=== PATIENT | male | born 1955 | race Caucasian/White ===

== ENCOUNTER → 2019-05-07 13:55 | Outpatient (BNVA) | payer MEDICARE, SELFPAY | PROVIDERS: Family Provider Family Medicine; PCP Family Medicine; Visit Provider Nurse Practitioner | DX: M54.40 Lumbago with sciatica, unspecified side (principal); M25.562 Pain in left knee; Z79.891 Long term (current) use of opiate analgesic | CPT/HCPCS: 99213; 99214 ==

== ENCOUNTER → 2019-10-14 13:14 | Outpatient (BNVA) | payer MEDICARE, SELFPAY | PROVIDERS: Family Provider Family Medicine; PCP Family Medicine; Visit Provider Nurse Practitioner | DX: M54.41 Lumbago with sciatica, right side (principal); M17.0 Bilateral primary osteoarthritis of knee; Z79.891 Long term (current) use of opiate analgesic | CPT/HCPCS: 99213; 99214 ==

== ENCOUNTER 2019-10-19 08:22 | Outpatient (CLI) | payer MEDICARE, SELFPAY ==
--- NOTE | 2019-10-19 08:41 | CT_ITS ---
WS: [id number] CT CHEST, ABDOMEN, AND PELVIS TECHNIQUE: Contrast-enhanced CT of the chest, abdomen, and pelvis with coronal and sagittal reformatt ed images. CLINICAL INFORMATION: COLON CANCER COMPARISON: CT 7 12,018 DLP: 2396.[address] scans at [facility] use at least one of these dose optimization techniques: automat ed exposure control; mA and/or kV adjustment per patient size (includes targeted exams where dose is matched to clinical indication); or iterative reconstruction. CT CHEST: Lungs are well aerated. No acute pulmonary infiltrates. No suspicious pulmonary parenchymal opacities . No pleural fluid or focal pneumonia. No significant pericardial fluid. Stable right hilar lymph nod e measuring 9 mm. No mediastinal or hilar lymphadenopathy. Mild aortic calcification. CT ABDOMEN AND PELVIS: Liver is normal in appearance. Normal common bile duct. Normal spleen. Gallbladder is unremarkable. N ormal pancreas. Adrenal glands are normal. Mild bilateral renal cortical atrophy. No hydronephrosis. 15 mm simple right renal cyst. Mild abdominal aortic calcification. Fat-containing umbilical hernia. Postoperative changes in the rectosigmoid junction. Rectosigmoid constipation. No mass or obstruction . No evidence of recurrent or progressive disease in this area. No pelvic or inguinal lymphadenopathy . No free fluid in the pelvis. Calcified enlarged prostate. Prostate measures 4.2 cm No evidence of bony metastatic disease. Right thyroid nodules the largest measuring 2.1 cm appear sta ble. CT/CT chest abd pel w con* IMPRESSION: 1. No evidence for metastatic disease in the chest abdomen or pelvis. 2. Stable postoperative changes rectosigmoid junction without evidence of recu rrent or residual disease in this location. 3. No abdominal or pelvic lymphadenopathy. 4. No free fluid in the abdomen or pelvis. 5. Right thyroid nodules appear stable. This can be followed up with wm tavarez
[2019-10-19 09:06] LABS: Basophils # 0.1 10^3/uL (0.0-0.1); Basophils % 0.9 %; Eosinophils # 0.2 10^3/uL (0.0-0.8); Eosinophils % 3.5 %; Hematocrit 44.5 % (42.0-52.0); Hemoglobin 14.6 g/dL (11.7-16.6); Lymphocytes # 1.4 10^3/uL (0.8-4.8); Lymphocytes % 23.7 %; Mean Corpuscular HGB Conc 32.8 g/dL (30.0-36.0); Mean Corpuscular Hemoglobin 29.6 pg (28.0-34.0); Mean Corpuscular Volume 90.1 fL (80-94); Mean Platelet Volume 9.7 fL (7.4-10.4); Monocytes # 0.4 10^3/uL (0.2-0.9); Monocytes % 7.1 %; Neutrophils % 64.5 %; Nucleated Red Blood Cells % 0 %; Platelet Count 262 10^3/cmm (130-400); Red Blood Count 4.94 10^6/uL (4.1-5.3); Red Cell Distribution Width 12.4 % (12.1-15.1); White Blood Count 5.7 10^3/uL (4.0-10.0)
[2019-10-19 09:54] LABS: Alanine Aminotransferase 23 U/L (0-41); Alkaline Phosphatase 130 IU/L (40-130); Anion Gap 12.9 (5-19); Aspartate Amino Transferase 29 U/L (0-40); Blood Urea Nitrogen 15 mg/dL (8-23); Calcium 9.2 mg/dL (8.5-10.5); Carbon Dioxide 30 mmol/L (22-29); Chloride 99 mmol/L (98-107); Globulin 3.1 g/dL (1.3-4.6); Glomerular Filtration Rate 84.4 mL/min (90-130); Glucose 113 mg/dL (65-115); Osmolality Calculated 283 mOsm/kg (285-295); Potassium 3.9 mmol/L (3.5-5.1); Sodium 138 mmol/L (136-145); Total Bilirubin 0.6 mg/dL (0.15-1.2); Total Protein 7.1 g/dL (6.6-8.7)
[2019-10-19] MEDS: iohexol 300 mg/mL 50 mL Btl IV (10:18)
[2019-10-19] MEDS: iohexol 300 mg/mL 100 mL Btl IV (10:18)
== END 2019-10-19 08:23 | disposition home or self-care (01) ==
LOC: CT 08:25
PROVIDERS: PCP Family Medicine; Visit Provider Internal Medicine Medical Oncology
DX: C18.7 Malignant neoplasm of sigmoid colon (principal); E04.2 Nontoxic multinodular goiter
CPT/HCPCS: 36415; 71260; 74177; 80053; 82378; 85025

== ENCOUNTER 2019-10-21 11:21 | Outpatient (CLI) | payer MEDICARE, SELFPAY ==
--- NOTE | 2019-10-24 15:33 | ONC FU_ITS ---
Dr. Jim Patient Follow-Up Note Patient: Helder Mccloud Unit #: [id number]: [id number] Dicatated By: Jamey Jim M.D.Date of Visit:Oct 21, 2019 Onc Med Follow-up/Prog Note Chief Complaint: Colon cancer. 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 In March 2014 he was admitted to the hospital with atrial fibrillation and congestive heart failure. At that time he reported that he had been having streaks of blood in his stool. Colonoscopy in April showed a nonobstructing, small size, partially circumferential, malignant appearing mass in the distal sigmoid colon. Also noted was a 7 mm adenomatous appearing polyp in the mid sigmoid colon. The polyp was removed endoscopically. Pathology on the polyp showed adenomatous polyp with low-grade dysplasia. Biopsy of the distal sigmoid mass confirmed low-grade infiltrating adenocarcinoma. CT abdomen/pelvis showed a plaque-like sigmoid mass measuring 2.5 x 0.7 cm. There was also evidence of degenerative disease at L5-S1. There was no adenopathy or other evidence of metastatic disease. Echocardiogram showed normal left ventricular systolic function with estimated ejection fraction at 63%. On 05/23/14 he underwent exploratory laparotomy with distal sigmoid colectomy and EEA anastomosis. There were no complications with the surgery. Pathology showed grade 1-2/4 infiltrating adenocarcinoma measuring 3.4 x 2.5 x 0.5 cm. There was tumor focally identified within small lymphovascular spaces. Resection margins were free with the distal margin measuring 1.8 cm and the proximal margin measuring 1.7 cm. There was no involvement in 6 pericolonic lymph nodes. We opted not to attempt adjuvant chemotherapy, as there was no definite indication for it. As such, he has been followed on observation/expectant management. His medical illnesses include hypertension, atrial fibrillation, congestive heart failure, GERD, and degenerative arthritis. He had smoked in the past, but he quit 16 years ago. He does report having moderate alcohol use. There is no family history of colon cancer. INTERIM HISTORY: His surveillance CT scans on 10/04/2016 and on 10/16/2017 showed no evidence for recurrent or metastatic disease in the chest, abdomen, and pelvis. He had surveillance colonoscopy in September 2017. His surveillance CT scans on 10/19/2019 showed no evidence for metastatic disease in the chest, abdomen, or pelvis. Right thyroid nodules appeared stable. He is seen for a scheduled visit. He has been feeling pretty good generally. He says his energy is okay. He has normal activity. ECOG score is 0. His appetite is good. He has no fever or night sweats. He has been having frequent nosebleeds. He recently was seen by Dr. Roberts, and he did have a cauterization procedure. He has mild exertional dyspnea. He has no resting dyspnea, cough, or chest pain. He still has to take Tums for acid reflux. He has no other GI or complaints. He has been getting injections for pain in his left knee, and he also has back pain. He has some numbness/tingling in his big toes. Medications: Aspirin 1 (81 mg) Tablet Oral daily, Hydrochlorothiazide 1 (25 mg) Tablet Oral daily, Lisinopril 1 (20 mg) Tablet Oral daily, Metoprolol Tartrate 1 (100 ) Tablet Oral b.i.d., Omeprazole 1 (40 mg) Capsule Delayed Release Oral daily, Xarelto 1 (20 mg) Tablet Oral daily Allergies: No Known Allergies. Review of Systems: Constitutional - He feels good. His energy is good and he has normal activity. His appetite is good and weight is stable. No fever, night sweats, or hot flashes. ECOG score is 0, ENMT - No sinus congestion/drainage. No mouth sores. No sore throat or difficulty swallowing. He has been having epistaxis frequently. He saw Dr. Roberts yesterday and had his nose cauterized, Hematologic/Lymphatic - No abnormal bruising. No other bleeding, Respiratory - He gets short of breath with activity. No cough. No pleuritic pain or hemoptysis, Cardiovascular - No angina pain. No palpitations, Gastrointestinal - No nausea or vomiting. He is taking omeprazole for heartburn. He is also using Tums because he has a constant urge to burp. No diarrhea or constipation. No blood in the stool or black stools, Genitourinary (M) - No dysuria or hematuria. No urinary frequency. No urgency or incontinence, Musculoskeletal - He has left knee pain, and he is having injections for it. He also has back pain, Integumentary - No skin complications, Neurologic - No headache or dizziness. He has numbness and tingling in his feet, specifically in both great toes. No other focal neurologic symptoms, Psychiatric - No anxiety or depression. No insomnia. Vital Signs: Performed on Oct 21, 2019 11:46 Height - 71.00 in Weight - 242.2 lbs (LOW) BSA - 2.29 sq.m BMI - 33.78 (HIGH) Temperature - 97.5 F (LOW) Pulse - 76 /min Respiration - 24 /min BP - 105/72 mm(hg) O2 Sat - 97 % Pain - 5 Physical Examination: Constitutional - He looks good generally, Eyes - Sclerae nonicteric. Conjunctivae clear, ENMT - No lesions noted in the oral cavity, Hematologic/Lymphatic - No cervical, clavicular, or axillary adenopathy, Respiratory - Lungs are clear with good air movement bilaterally, Cardiovascular - Heart rhythm is slightly irregular. There is no murmur, gallop, or rub noted, Abdomen - Mildly distended but soft. Liver and spleen are not enlarged. There is no abdominal mass or ascites noted and there is no inguinal adenopathy, Extremities - There are venous stasis changes bilaterally. There is mild swelling of the left leg below the knee, Neurologic - No focal neurologic deficits noted. Lab/Imaging: CBC shows hemoglobin 14.6 g, white blood cell count 5700, and platelet count 262,000. Comprehensive metabolic profile shows normal renal function with BUN 15 and creatinine 0.9 mg/dL. The bilirubin and liver enzymes are normal. CEA is stable at 1.0 ng/mL. Impression: 1. The patient has low-grade infiltrating adenocarcinoma of the distal sigmoid colon, stage IIA (T3, N0, M0). He underwent exploratory laparotomy with distal sigmoid colectomy and EEA anastomosis on 05/23/14. We opted not to attempt adjuvant chemotherapy. His other medical illnesses include: 2. Hypertension. 3. Atrial fibrillation with congestive heart failure, now compensated. 4. GERD. 5. Degenerative arthritis/degenerative disease of the spine. He has been ollowed on observation/expectant management. He is now 5 years out from surgery with no evidence of recurrence of the colon cancer. Plan: He remains on observation/expectant management for the colon cancer. I will see him again in 1 year. In the meantime, I will check with Dr. Patton regarding his surveillance colonoscopy schedule. Signed By: Jamey Jim M.D. <<Signature on File>>
== END 2019-10-21 11:22 | disposition home or self-care (01) ==
LOC: ONCMED 11:23
PROVIDERS: PCP Family Medicine; Visit Provider Internal Medicine Medical Oncology
DX: Z08 Encounter for follow-up examination after completed treatment for malignant neoplasm (principal); Z85.038 Personal history of other malignant neoplasm of large intestine; I10 Essential (primary) hypertension; I48.91 Unspecified atrial fibrillation; I50.9 Heart failure, unspecified; K21.9 Gastro-esophageal reflux disease without esophagitis; M19.90 Unspecified osteoarthritis, unspecified site; M47.9 Spondylosis, unspecified; Z90.49 Acquired absence of other specified parts of digestive tract
CPT/HCPCS: G0463

== ENCOUNTER 2020-01-19 08:58 | Emergency (ER) | payer MEDICARE, SELFPAY ==
[2020-01-19 09:08] VITALS: BP 109/72; PULSE 105; RESP 18; TEMP 36.7; O2SAT 96; BMI 34.4
--- NOTE | 2020-01-19 10:06 | XRR_ITS ---
PROCEDURE INFORMATION: Exam: XR Left Knee Exam date and time: 01/19/2020 10:07 AM Age: 64 years old Clinical indication: Injury or trauma; Fall; Blunt trauma; Knee; Left; Injury date: 01/18/20; Injury details: Fell off ladder TECHNIQUE: Imaging protocol: XR Left knee. Views: 1 or 2 views. COMPARISON: CR Knee 3 views, LEFT* [id number] 11/30/2015 2:35 PM FINDINGS: Bones/joints: No fracture. No dislocation. Minimal narrowing of the medial femoral tibial joint compartment space without subchondral sclerosis, subchondral cyst formation, or osteophyte formation. Small joint effusion. Soft tissues: Increased density and stranding in the subcutaneous tissues anterior to the patella and patellar tendon compatible with contusion given the history. XR/XR knee LT 1-2V [id number] IMPRESSION: Soft tissue injury without osseous injury.
--- NOTE | 2020-01-19 10:06 | XRR_ITS ---
PROCEDURE INFORMATION: Exam: XR Right Shoulder Exam date and time: 01/19/2020 10:31 AM Age: 64 years old Clinical indication: Injury or trauma; Fall; Blunt trauma (contusions or hematomas); Shoulder; Right; Injury date: 01/18/20; Patient HX: Fell off ladder TECHNIQUE: Imaging protocol: XR Right shoulder. Views: 2 or more views. COMPARISON: No relevant prior studies available. FINDINGS: Bones/joints: No fracture. No dislocation. The acromiohumeral interval is normal. Soft tissues: No acute soft tissue abnormality. XR/XR shoulder RT min 2V* [id number] IMPRESSION: No acute osseous abnormality.
--- NOTE | 2020-01-19 10:06 | XRR_ITS ---
PROCEDURE INFORMATION: Exam: XR Right Foot Exam date and time: 01/19/2020 10:31 AM Age: 64 years old Clinical indication: Injury or trauma; Fall; Blunt trauma; Foot; Right; Injury date: 01/18/20; Patient HX: Fell off ladder TECHNIQUE: Imaging protocol: XR Right foot. Views: 1 or 2 views. COMPARISON: No relevant prior studies available. FINDINGS: Bones/joints: No fracture. No dislocation. There is a calcaneal plantar spur. Soft tissues: There is superficial soft tissue swelling in the midfoot and forefoot. XR/XR foot RT 2V [id number] IMPRESSION: Soft tissue injury without osseous injury.
[2020-01-19 12:21] VITALS: BP 109/79; PULSE 95; RESP 18; O2SAT 100
--- NOTE | 2020-01-19 12:31 | XRR_ITS ---
PROCEDURE INFORMATION: Exam: XR Right Ankle Exam date and time: 01/19/2020 12:32 PM Age: 64 years old Clinical indication: Pain; Ankle; Right; Additional info: RT ankle pain TECHNIQUE: Imaging protocol: XR Right ankle. Views: 3 or more views. COMPARISON: CR XR foot RT 2V [id number] 01/19/2020 10:14 AM FINDINGS: Bones/joints: No fracture. No dislocation. The ankle mortise is intact. Soft tissues: There is superficial soft tissue swelling. XR/XR ankle RT min 3V* [id number] IMPRESSION: Soft tissue injury without osseous injury.
--- NOTE | 2020-01-19 18:24 | ED_ITS ---
HPI - Fall General: Chief Complaint: Fall Stated Complaint: fall on 01/17 Time Seen by Provider: 01/19/20 12:04 History of Present Illness: HPI Narrative: 64 year old male presents to the ED after he sustained a fall off a ladder yesterday - reports pain to the right ankle and foot, right shoulder and left knee. He reports able to ambulate with crutches. complaint: fall Onset (ago): hour(s) (24) Fall from: from height (distance) (7 feet) Fall witnessed: yes, by family Place fall occurred: home Loss of consciousness: None Location of injury - extremities: Left: knee and Right: shoulder, ankle and foot Severity: moderate Severity scale (1-10): 4 Quality: sharp and aching Associated symptoms-after fall: Reports difficulty walking (due to RLE pain); Denies abdominal pain, chest pain or neck pain Review of Systems General: Reports: 10 or more systems reviewed and unremarkable except in HPI and below Const: Denies: fever(s), chills or diaphoresis Eyes: Denies: blurry vision or eye redness ENMT: Denies: throat pain, dental pain or disequilibrium Card: Denies: chest pain, palpitations or irregular heart rhythm Resp: Denies: dyspnea, productive cough, non-productive cough or wheezing GI: Denies: abdominal pain, nausea or vomiting : Denies: dysuria Musc: Reports: joint pain (rt ankle, foot and left knee, rt shoulder) and joint swelling (right ankle and foot); Denies: neck pain or back pain Skin/Breast: Denies: rash or pruritus Neuro: Reports: difficulty walking (due to RLE pain) Psych: Denies: anxiety or depression Jason/Lymph: Denies: easy bruising [facility] ED PFSH: Medical History (Updated 01/19/20 @ 12:53 by LAURA Finnegan) Anticoagulation adequate with anticoagulant therapy Xarelto Atrial fibrillation Congestive heart failure Essential hypertension Facet syndrome, lumbar Long-term use of high-risk medication Low back pain with radiation Nonischemic cardiomyopathy Osteoarthritis of both knees Spinal stenosis, lumbar Surgical History History of bowel resection LARGE BOWEL Hx of neck surgery S/P hernia repair S/P routine circumcision S/P tonsillectomy Family History Mother Stroke Father CAD (coronary artery disease) Myocardial infarct Denies family history of Anesthesia complication Bleeding disorder Social History Smoking and tobacco status: former smoker Alcohol intake: current Alcohol intake frequency: 0-2 Drinks per Day Alcohol type: other History of recent travel: No Physical Exam Const: COMMON NORMALS: no acute distress, patient oriented x3, healthy appearing and alert GENERAL APPEARANCE: cooperative, comfortable and well hydrated HENMT: COMMON NORMALS: normocephalic, Normal external nose present and moist oral mucous membranes HEAD & SCALP: normocephalic NOSE: Normal external nose present Eye: COMMON NORMALS: Equal, round and reactive pupils present and EOMs intact bilaterally GENERAL EYE: appearance normal, both eyes and all related structures PUPIL: Yes Equal, round and reactive pupils present Neck/C-Spine: COMMON NORMALS: full ROM and no lymphadenopathy GENERAL: Yes normal visual inspection and Yes trachea midline CERVICAL SPINE: Yes cervical ROM normal, No Cervical spine tenderness, No Paracervical muscle tenderness and No Trapezius muscle tenderness Lymph: LYMPHATIC: no lymphadenopathy noted Chest: COMMONS NORMALS: normal inspection of the chest Resp: COMMON NORMALS: normal respiratory effort and clear to auscultation bilaterally AUSCULTATION: clear to auscultation bilaterally Cardio: COMMON NORMALS: regular rhythm, S1 normal heart sound present and S2 normal heart sound present RHYTHM: regular rhythm HEART SOUNDS: S1 normal heart sound present and S2 normal heart sound present GI: COMMON NORMALS: Soft to palpation and non-tender INSPECTION: Yes normal to inspection PALPATION: Yes Soft to palpation : COMMON NORMALS: Yes no CVA tenderness BLADDER/KIDNEY EXAM: Yes no CVA tenderness Back/Pelvis: COMMON NORMALS: no CVA tenderness, thoracic and lumbar spine normal to inspection, no thoracic nor lumbar tenderness, thoraco-lumbar ROM normal and straight leg raise negative bilaterally Extremity: COMMON NORMALS: normal to inspection and capillary refill normal GENERAL: Yes normal exam except as noted RIGHT UPPER EXTREMITY: Yes shoulder joint (full ROM noted with pain ) Right shoulder: Yes Right shoulder joint inspection exam (normal), Yes Right shoulder joint neurovascular exam (distally intact) and Yes Right shoulder joint other findings (soft tissue pain noted, no pain to the clavicle or humerus) RIGHT LOWER EXTREMITY: Yes foot & digits Right ankle: Yes inspection (edema/swelling), Yes palpation (pain around the joint), Yes ROM (limited due to pain) and Yes neurovascular exam (distally intact) and Yes foot & digits (swelling) Right foot and digits: Yes inspection, Yes palpation (pain proximal), Yes ROM (pain with dorsiflexion and extension) and Yes neurovascular exam (intact) Neuro: COMMON NORMALS: patient oriented x3 and no focal motor deficits SENSORIUM/ORIENTATION: Yes alert Psych: COMMON NORMALS: mental status grossly normal, Normal thought process present and cooperative ACTIVITY/MOTOR BEHAVIOR: Yes appropriate eye contact THOUGHT PROCESS: Normal thought process present Skin: COMMON NORMALS: no rashes or lesions noted and turgor normal GENERAL SKIN EXAM: no rashes or lesions noted and turgor normal Course Vital Signs: Vital signs: Vital Signs Temperature 98.1 F 01/19/20 09:08 Pulse Rate 95 01/19/20 12:21 Respiratory Rate 18 01/19/20 12:21 Blood Pressure 109/79 01/19/20 12:21 Pulse Oximetry 100 01/19/20 12:21 MDM - Fall Imaging Data^: Xray Ortho: Radiologist's impression: [place] [address] XRay Report Signed Patient: Helder Mccloud #: [id number] : 4Acct#:[id number] Age/Sex: 64 / MADM Date: 01/19/20 Loc: ERRoom/Bed: Attending Dr: Ordering Provider/Ordering MD: Max Souza DO Date of Service: 01/19/20 Procedure(s): XR foot RT 2V 59885 Accession Number(s): [id number] Report Number: [id number] PROCEDURE INFORMATION: Exam: XR Right Foot Exam date and time: 01/19/2020 10:31 AM Age: 64 years old Clinical indication: Injury or trauma; Fall; Blunt trauma; Foot; Right; Injury date: 01/18/20; Patient HX: Fell off ladder TECHNIQUE: Imaging protocol: XR Right foot. Views: 1 or 2 views. COMPARISON: No relevant prior studies available. FINDINGS: Bones/joints: No fracture. No dislocation. There is a calcaneal plantar spur. Soft tissues: There is superficial soft tissue swelling in the midfoot and forefoot. XR/XR foot RT 2V [id number] IMPRESSION: Soft tissue injury without osseous injury. Dictated By:Yasmany Neumann Signed By:Herbert Neumann Date/Time:01/19/20 1052 DD/ 1050 Other Xray: Radiologist's impression: [address] [place] [address] XRay Report Signed Patient: Helder Mccloud #: [id number] : 1955cct#:[id number] Age/Sex: 64 / MADM Date: 01/19/20 Loc: ERRoom/Bed: Attending Dr: Ordering Provider/Ordering MD: Max Souza DO Date of Service: 01/19/20 Procedure(s): XR shoulder RT min 2V* [id number] Accession Number(s): [id number] Report Number: [id number] PROCEDURE INFORMATION: Exam: XR Right Shoulder Exam date and time: 01/19/2020 10:31 AM Age: 64 years old Clinical indication: Injury or trauma; Fall; Blunt trauma (contusions or hematomas); Shoulder; Right; Injury date: 01/18/20; Patient HX: Fell off ladder TECHNIQUE: Imaging protocol: XR Right shoulder. Views: 2 or more views. COMPARISON: No relevant prior studies available. FINDINGS: Bones/joints: No fracture. No dislocation. The acromiohumeral interval is normal. Soft tissues: No acute soft tissue abnormality. XR/XR shoulder RT min 2V* [id number] IMPRESSION: No acute osseous abnormality. Dictated By:Yasmany Neumann Signed By:Herbert Neumann Date/Time:01/19/20 1051 DD/ 1049 Other Imaging: Radiologist's impression: [place] [id number] XRay Report Signed Patient: Helder Mccloud #: [id number] : 1955cct#:[id number] Age/Sex: 64 / MADM Date: 01/19/20 Loc: ERRoom/Bed: Attending Dr: Ordering Provider/Ordering MD: Max Souza DO Date of Service: 01/19/20 Procedure(s): XR foot RT 2V 22290 Accession Number(s): [id number] Report Number: [id number] PROCEDURE INFORMATION: Exam: XR Right Foot Exam date and time: 01/19/2020 10:31 AM Age: 64 years old Clinical indication: Injury or trauma; Fall; Blunt trauma; Foot; Right; Injury date: 01/18/20; Patient HX: Fell off ladder TECHNIQUE: Imaging protocol: XR Right foot. Views: 1 or 2 views. COMPARISON: No relevant prior studies available. FINDINGS: Bones/joints: No fracture. No dislocation. There is a calcaneal plantar spur. Soft tissues: There is superficial soft tissue swelling in the midfoot and forefoot. XR/XR foot RT 2V [id number] IMPRESSION: Soft tissue injury without osseous injury. Dictated By:Yasmany Neumann Signed By:Herbert Neumann Date/Time:01/19/20 105 DD/ 1050 Discharge Plan Discharge Patient Disposition: Home Clinical Impression: Fall Qualifiers: Encounter type: initial encounter Qualified Code(s): W19.XXXA - Unspecified fall, initial encounter Ankle sprain Qualifiers: Encounter type: initial encounter Involved ligament of ankle: unspecified ligament Laterality: right Qualified Code(s): S93.401A - Sprain of unspecified ligament of right ankle, initial encounter Contusion Qualifiers: Encounter type: initial encounter Contusion area: shoulder Laterality: right Qualified Code(s): S40.011A - Contusion of right shoulder, initial encounter Condition: Stable Prescriptions: No Action aspirin 81 mg tablet,chewable 81 mg PO ONCE RF: 0 omeprazole 40 mg capsule,delayed release(DR/EC) 40 mg PO DAILY RF: 0 lisinopril 2.5 mg tablet 2.5 mg PO .Q DAY RF: 0 gabapentin 300 mg capsule 300 mg PO TID 30 Days Qty: 90 RF: 3 tramadol 50 mg tablet 50 mg PO QID PRN (Reason: pain) 30 Days Qty: 120 RF: 2 Xarelto 20 mg tablet 20 mg PO DAILY Qty: 90 RF: 3 metoprolol tartrate 50 mg tablet 50 mg PO BID Qty: 180 RF: 3 hydrochlorothiazide 25 mg tablet 25 mg PO DAILY Qty: 90 RF: 3 Discharge Orders: Discharge Order (Routine); Ordered 01/19/20 Ordered By: Angelina Reese Referrals: Dasia Taylor MD [Primary Care Provider] - Discharge Diet: Usual diet Discharge Activity: Limit activity as instructed Patient Instructions: Ankle Sprain (ED), Contusion in Adults (ED), Ankle Stirrup Splint (ED), Fall Prevention (ED) Activity Restrictions/Additional Instructions: Cool compresses to the right ankle and foot, keep the right foot elevated to help with swelling Cool compresses to the right shoulder, this will help with pain Take it easy over the next couple of days, avoid climbing ladders or vigorous activity for the next couple of days Return to the emergency department if you develop neck pain, confusion, increased pain of the right arm or right foot Follow-up with your primary care provider in 5 to 7 days if not improving Continue tramadol as needed for pain May alternate Tylenol with tramadol if needed, may utilize crutches as needed for ankle pain Discharge Date/Time: 01/19/20 13:09 Coding Level of Care Code ED Lead Former for Chandra Fwd Exam Comprehensive
== END 2020-01-19 13:09 | disposition home or self-care (01) ==
PROVIDERS: Emergency Provider Nurse Practitioner Family; PCP Family Medicine
DX: S93.401A Sprain of unspecified ligament of right ankle, initial encounter (principal); S40.011A Contusion of right shoulder, initial encounter; Z79.82 Long term (current) use of aspirin; I48.91 Unspecified atrial fibrillation; I11.0 Hypertensive heart disease with heart failure; I50.9 Heart failure, unspecified; Z87.891 Personal history of nicotine dependence; W11.XXXA Fall on and from ladder, initial encounter
CPT/HCPCS: 12345; 29515; 73030; 73560; 73610; 73620; 99281; 99283

== ENCOUNTER 2020-11-20 15:22 | Outpatient (CLI) | payer MEDICARE, SELFPAY ==
[2020-11-20 16:31] LABS: Basophils # 0.1 10^3/uL (0.0-0.1); Basophils % 1.1 %; Eosinophils # 0.1 10^3/uL (0.0-0.8); Eosinophils % 2.5 %; Hematocrit 43.2 % (42.0-52.0); Hemoglobin 14.6 g/dL (11.7-16.6); Lymphocytes # 1.2 10^3/uL (0.8-4.8); Mean Corpuscular HGB Conc 33.8 g/dL (30.0-36.0); Mean Corpuscular Hemoglobin 29.8 pg (28.0-34.0); Mean Corpuscular Volume 88.2 fl (80-94); Mean Platelet Volume 9.6 fL (7.4-10.4); Monocytes # 0.4 10^3/uL (0.2-0.9); Monocytes % 7.5 %; Neutrophils # 3.87 10^3/uL (1.8-7.7); Neutrophils % 67.7 %; Nucleated Red Blood Cells % 0 %; Platelet Count 280 10^3/cmm (130-400); Red Cell Distribution Width 12.1 % (12.1-15.1); White Blood Count 5.7 10^3/uL (4.0-10.0)
[2020-11-20 16:52] LABS: Alanine Aminotransferase 13 U/L (0-41); Albumin Level 3.8 g/dL (3.5-5.2); Alkaline Phosphatase 131 IU/L (40-130); Anion Gap 12.5 (5-19); Aspartate Amino Transferase 21 U/L (0-40); Blood Urea Nitrogen 13 mg/dL (8-23); Calcium 8.7 mg/dL (8.5-10.5); Carbon Dioxide 28 mmol/L (22-29); Chloride 101 mmol/L (98-107); Globulin 2.9 g/dL (1.3-4.6); Glomerular Filtration Rate 112.5 mL/min (90-130); Glucose 97 mg/dL (65-115); Osmolality Calculated 286 mOsm/kg (285-295); Potassium 3.5 mmol/L (3.5-5.1); Sodium 138 mmol/L (136-145); Total Bilirubin 0.8 mg/dL (0.15-1.2); Total Protein 6.7 g/dL (6.6-8.7)
[2020-11-20 18:59] LABS: Thyroid Stimulating Hormone 0.01 uIU/mL (0.27-4.20); Vitamin B12 227 pg/mL (232-1245)
[2020-11-20 19:28] LABS: Estmated Average Glucose 85; Hemoglobin A1C 4.6 % (4.0-6.0)
[2020-11-20 19:35] LABS: Carcinoembryonic Antigen 1.1 ng/mL (0.0-4.7)
--- NOTE | 2020-11-21 07:33 | ONC FU_ITS ---
Dr. Jim Patient Follow-Up Note Patient: Helder Mccloud Unit #: [id number]: [id number] Dicatated By: Jamey Jim M.D.Date of Visit:Nov 20, 2020 Onc Med Follow-up/Prog Note Chief Complaint: Colon cancer. 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 In March 2014 he was admitted to the hospital with atrial fibrillation and congestive heart failure. At that time he reported that he had been having streaks of blood in his stool. Colonoscopy in April showed a nonobstructing, small size, partially circumferential, malignant appearing mass in the distal sigmoid colon. Also noted was a 7 mm adenomatous appearing polyp in the mid sigmoid colon. The polyp was removed endoscopically. Pathology on the polyp showed adenomatous polyp with low-grade dysplasia. Biopsy of the distal sigmoid mass confirmed low-grade infiltrating adenocarcinoma. CT abdomen/pelvis showed a plaque-like sigmoid mass measuring 2.5 x 0.7 cm. There was also evidence of degenerative disease at L5-S1. There was no adenopathy or other evidence of metastatic disease. Echocardiogram showed normal left ventricular systolic function with estimated ejection fraction at 63%. On 05/23/14 he underwent exploratory laparotomy with distal sigmoid colectomy and EEA anastomosis. There were no complications with the surgery. Pathology showed grade 1-2/4 infiltrating adenocarcinoma measuring 3.4 x 2.5 x 0.5 cm. There was tumor focally identified within small lymphovascular spaces. Resection margins were free with the distal margin measuring 1.8 cm and the proximal margin measuring 1.7 cm. There was no involvement in 6 pericolonic lymph nodes. We opted not to attempt adjuvant chemotherapy, as there was no definite indication for it. As such, he has been followed on observation/expectant management. His medical illnesses include hypertension, atrial fibrillation, congestive heart failure, GERD, and degenerative arthritis. He had smoked in the past, but he quit 16 years ago. He does report having moderate alcohol use. There is no family history of colon cancer. INTERIM HISTORY: His surveillance CT scans on 10/04/2016 and on 10/16/2017 showed no evidence for recurrent or metastatic disease in the chest, abdomen, and pelvis. He had surveillance colonoscopy in September 2017. His surveillance CT scans on 10/19/2019 showed no evidence for metastatic disease in the chest, abdomen, or pelvis. Right thyroid nodules appeared stable. He is seen for a followup visit. He says his energy is not real good. He is able to do light work, though. ECOG score is 1. He has good appetite. He has no fever or night sweats. Following his visit last year he had his nose cauterized and he says he has been unable to smell or taste since then. He has not had sore mouth or throat. He does not complain of shortness of breath, cough, or chest pain. He has no GI complaints. His acid reflux symptoms are adequately managed with medication. He does complain of urinary frequency and nocturia, and he also reports having dribbling. He has no significant joint or bone pain. He has just occasional headache. He has a little bit of dizziness. He complains of having pain and numbness in his 2 big toes. Medications: Aspirin 1 (81 mg) Tablet Oral daily, Hydrochlorothiazide 1 (25 mg) Tablet Oral daily, Lisinopril 1 (20 mg) Tablet Oral daily, Metoprolol Tartrate 1 (100 ) Tablet Oral b.i.d., Omeprazole 1 (40 mg) Capsule Delayed Release Oral daily, Xarelto 1 (20 mg) Tablet Oral daily Allergies: No Known Allergies. Vital Signs: Performed on Nov 20, 2020 15:36 Height - 71.00 in Weight - 236.8 lbs (LOW) BSA - 2.27 sq.m BMI - 33.03 (HIGH) Temperature - 97.8 F (LOW) Pulse - 81 /min Respiration - 18 /min BP - 112/76 mm(hg) O2 Sat - 99 % Pain - 0 Fatigue - 0 Physical Examination: Constitutional - He looks pretty good generally, Eyes - Sclerae nonicteric. Conjunctivae clear, ENMT - No lesions noted in the oral cavity, Hematologic/Lymphatic - No cervical, clavicular, or axillary adenopathy, Respiratory - Lungs are clear with good air movement bilaterally, Cardiovascular - Heart rhythm is irregular. There is no murmur, gallop, or rub noted, Abdomen - Mildly distended but soft. Liver and spleen are not enlarged. There is no abdominal mass or ascites noted and there is no inguinal adenopathy, Extremities - There are venous stasis changes bilaterally. There is mild edema, worse on the left. The distal feet and toes are cool to touch, but he has palpable dorsalis pedis pulses bilaterally, Neurologic - No focal neurologic deficits noted. Lab/Imaging: Test performed on Nov 20, 2020 15:45 Sodium 138 mmol/L Potassium 3.5 mmol/L Chloride 101 mmol/L CO2 28 mmol/L Anion Gap 12.5 BUN 13 mg/dL Creatinine 0.7 mg/dL Cr Clearance (Est) 155.5800 mL/min eGFR 112.5 mL/min Glucose 97 mg/dL Osmolality - Calculated 286 mOsm/kg Calcium 8.7 mg/dL Protein, Total 6.7 g/dL Albumin 3.8 g/dL Globulin 2.9 g/dL Bilirubin, Total 0.8 mg/dL ALT (SGPT) 13 U/L AST (SGOT) 21 U/L Alkaline Phosphatase 131 IU/L WBC 5.7 10 3/uL RBC 4.90 10 6/uL HGB 14.6 g/dL HCT 43.2 % MCV 88.2 fl MCH 29.8 pg MCHC 33.8 g/dL RDW 12.1 % Platelet Count 280 10 3/cmm MPV 9.6 fL Neutrophils 3.87 10 3/uL Lymphocytes 1.2 10 3/uL Monocytes 0.4 10 3/uL Eosinophils 0.1 10 3/uL Basophils 0.1 10 3/uL Neutrophil % 67.7 % Lymphocyte % 21.0 % Monocyte % 7.5 % Eosinophil % 2.5 % Basophils % 1.1 % NRBC % 0 % Problem List: 1. Low-grade infiltrating adenocarcinoma of the distal sigmoid colon, stage IIA (T3, N0, M0). He underwent exploratory laparotomy with distal sigmoid colectomy and EEA anastomosis on 05/23/14. We opted not to attempt adjuvant chemotherapy. 2. Hypertension. 3. Atrial fibrillation with congestive heart failure, compensated. 4. GERD. 5. Degenerative arthritis/degenerative disease of the spine. Problems Addressed with this Encounter and Plan: 1. Patient with low-grade infiltrating adenocarcinoma of the distal sigmoid colon, stage IIA (T3, N0, M0). He underwent exploratory laparotomy with distal sigmoid colectomy and EEA anastomosis on 05/23/2014. We opted not to attempt adjuvant chemotherapy. During follow-up he has been stable clinically. He is now over 5 years out from surgery with no evidence of recurrence. He can continue regular follow-up with his primary care provider. I will see him again as needed. 2. He has had chronic pain. He had previously been given gabapentin through pain clinic. He is no longer being seen there. His gabapentin prescription will be refilled, to be taken just at bedtime. 3. He is having significant voiding symptoms. He will be given a prescription for tamsulosin 0.4 mg at bedtime. 4. He is having pain and numbness in both great toes. At his request, I am arranging for referral to a microfilm mounter. In the meantime, I also will add TSH and B12 levels to his current lab studies. He will have further evaluation as indicated. Signed By: Jamey Jim M.D. <<Signature on File>>
== END 2020-11-20 15:23 | disposition home or self-care (01) ==
LOC: ONCMED 15:26
PROVIDERS: PCP Family Medicine; Visit Provider Internal Medicine Medical Oncology
DX: Z08 Encounter for follow-up examination after completed treatment for malignant neoplasm (principal); Z85.038 Personal history of other malignant neoplasm of large intestine; I10 Essential (primary) hypertension; I48.20 Chronic atrial fibrillation, unspecified; I50.9 Heart failure, unspecified; K21.9 Gastro-esophageal reflux disease without esophagitis; M47.9 Spondylosis, unspecified; Z79.899 Other long term (current) drug therapy; Z92.21 Personal history of antineoplastic chemotherapy
CPT/HCPCS: 36415; 80053; 82378; 82607; 83036; 84443; 85025; 99214

== ENCOUNTER 2020-11-23 06:07 | Outpatient (CLI) | payer MEDICARE, SELFPAY ==
[2020-11-23 15:26] LABS: Homocysteine 13.46; Thyroid Stimulating Hormone 0.01 uIU/mL (0.27-4.20); Vitamin B12 239 pg/mL (232-1245)
[2020-11-23 16:04] LABS: Free T4 Free Thyroxine 1.32 ng/dL (0.82-1.77); T3 Free 4.9 PG/ML (2.0-4.4)
== END 2020-11-23 06:08 | disposition home or self-care (01) ==
LOC: ONCMED 06:11
PROVIDERS: PCP Family Medicine; Visit Provider Internal Medicine Medical Oncology
DX: C18.7 Malignant neoplasm of sigmoid colon (principal); I48.20 Chronic atrial fibrillation, unspecified; Z79.899 Other long term (current) drug therapy
CPT/HCPCS: 36415; 82607; 83090; 84439; 84443; 84481

== ENCOUNTER 2020-11-29 09:30 | Outpatient (CLI) | payer MEDICARE, SELFPAY ==
[2020-12-03 08:22] LABS: Methylmalonic Acid 840 nmol/L (87-318)
== END 2020-11-29 09:31 | disposition home or self-care (01) ==
LOC: ONCMED 09:32
PROVIDERS: PCP Family Medicine; Visit Provider Internal Medicine Medical Oncology
DX: C18.7 Malignant neoplasm of sigmoid colon (principal); M79.672 Pain in left foot; M79.671 Pain in right foot; M77.32 Calcaneal spur, left foot; M77.31 Calcaneal spur, right foot; M21.42 Flat foot [pes planus] (acquired), left foot; M21.41 Flat foot [pes planus] (acquired), right foot; Z79.899 Other long term (current) drug therapy
CPT/HCPCS: 36415; 73630; 83921

== ENCOUNTER → 2021-01-22 13:31 | Outpatient (BNVA) | payer MEDICARE, SELFPAY | PROVIDERS: PCP Family Medicine; Referring Provider Internal Medicine Medical Oncology; Visit Provider Internal Medicine | DX: E05.90 Thyrotoxicosis, unspecified without thyrotoxic crisis or storm (principal) | CPT/HCPCS: 36415; 83516; 84439; 84443; 84480; 99204 ==

== ENCOUNTER 2021-01-22 14:23 | Outpatient (CLI) | payer MEDICARE, SELFPAY ==
[2021-01-22 15:18] LABS: Free T4 Free Thyroxine 1.26 ng/dL (0.82-1.77); Thyroid Stimulating Hormone 0.01 uIU/mL (0.27-4.20)
[2021-01-23 05:57] LABS: T3 Total 178 ng/dL (76-181)
[2021-01-30 17:53] LABS: TSH Receptor Binding Antibody 1.58 IU/L (< OR = 2.00)
== END 2021-01-22 14:24 | disposition home or self-care (01) ==
PROVIDERS: PCP Family Medicine; Visit Provider Internal Medicine
DX: E05.90 Thyrotoxicosis, unspecified without thyrotoxic crisis or storm (principal)
CPT/HCPCS: 36415; 83516; 84439; 84443; 84480

== ENCOUNTER 2021-03-12 09:45 | Outpatient (CLI) | payer MEDICARE, SELFPAY ==
--- NOTE | 2021-03-12 09:52 | NM_ITS ---
WS: [id number] NUCLEAR MEDICINE THYROID UPTAKE AND SCAN HISTORY: thyrotoxicosis COMPARISON: None available. Radionucleotide: 105.4 uCi Iodine-123 sodium iodide capsule. Oral ingestion. Imaging performed at 24 hours post ingestion of capsule. Marker placed over the chin and suprasternal notch. Small atrophic LEFT thyroid gland with no increased uptake. There is mildly diminished uptake. RIGHT thyroid gland does appear to be enlarged. More focal increased uptake within the lower pole may repre sent a focal thyrotoxic nodule. Thyroid uptake at 24 hours: 27.69%. (Normal uptake at 24 hours 10-30%). NM/NM thyroid uptake multi [id number] IMPRESSION: 1. Normal thyroid uptake at 24 hours. 2. Suspect mild atrophy or decreased uptake within the LEFT thyroid. 3. Increased uptake within the inferior pole of the RIGHT thyroid may indicate a hot nodule. If clinically necessary ultrasound may provide additional inform ation. A nodule was previously described as seen on CT of 10/19/2019 and the low er pole of the RIGHT thyroid.
== END 2021-03-12 09:46 | disposition home or self-care (01) ==
LOC: RAD 09:48
PROVIDERS: PCP Family Medicine; Visit Provider Internal Medicine
DX: E05.90 Thyrotoxicosis, unspecified without thyrotoxic crisis or storm (principal)
CPT/HCPCS: 78014; A9516

== ENCOUNTER 2021-03-22 09:17 | Outpatient (CLI) | payer MEDICARE, SELFPAY ==
[2021-03-22 10:29] LABS: Free T4 Free Thyroxine 0.83 ng/dL (0.82-1.77); Thyroid Stimulating Hormone 0.05 uIU/mL (0.27-4.20)
[2021-03-23 06:59] LABS: T3 Total 117 ng/dL (76-181)
== END 2021-03-22 09:18 | disposition home or self-care (01) ==
LOC: LAB 09:21
PROVIDERS: PCP Family Medicine; Visit Provider Internal Medicine
DX: E05.90 Thyrotoxicosis, unspecified without thyrotoxic crisis or storm (principal)
CPT/HCPCS: 36415; 84439; 84443; 84480

== ENCOUNTER → 2021-03-29 13:53 | Outpatient (BNVA) | payer MEDICARE, SELFPAY | PROVIDERS: PCP Family Medicine; Visit Provider Internal Medicine | DX: E05.90 Thyrotoxicosis, unspecified without thyrotoxic crisis or storm (principal) | CPT/HCPCS: 99214 ==

== ENCOUNTER → 2021-05-02 07:49 | Outpatient (BNVA) | payer MEDICARE, SELFPAY | PROVIDERS: PCP Family Medicine; Referring Provider Podiatrist Foot & Ankle Surgery; Visit Provider Specialist | DX: Z53.9 Procedure and treatment not carried out, unspecified reason (principal) | CPT/HCPCS: 99202 ==

== ENCOUNTER 2021-05-02 10:14 | Outpatient (CLI) | payer MEDICARE, SELFPAY ==
[2021-05-02 11:12] LABS: Erythrocyte Sedimentation Rate 7 mm/hr (0-10)
[2021-05-02 11:28] LABS: C Reactive Protein 8.3 mg/L (0.0-4.9); Thyroid Stimulating Hormone 5.76 uIU/mL (0.27-4.20); Vitamin B12 237 pg/mL (232-1245)
[2021-05-02 11:40] LABS: Folate Level 9.4 ng/mL (4.5-32.2)
[2021-05-08 18:57] LABS: Methylmalonic Acid 861 nmol/L (87-318)
== END 2021-05-02 10:15 | disposition home or self-care (01) ==
LOC: LAB 10:18
PROVIDERS: PCP Family Medicine; Visit Provider Specialist
DX: G62.89 Other specified polyneuropathies (principal); R20.0 Anesthesia of skin; R20.2 Paresthesia of skin; Z87.891 Personal history of nicotine dependence
CPT/HCPCS: 82607; 82746; 83921; 84443; 85651; 86140; 86334; 86431; 95886; 95909

== ENCOUNTER 2021-05-23 09:25 | Outpatient (CLI) | payer MEDICARE, SELFPAY ==
[2021-05-23 10:10] LABS: Free T4 Free Thyroxine 0.66 ng/dL (0.82-1.77); T3 Free 3.2 PG/ML (2.0-4.4); Thyroid Stimulating Hormone 7.91 uIU/mL (0.27-4.20)
== END 2021-05-23 09:26 | disposition home or self-care (01) ==
LOC: LAB 09:28
PROVIDERS: PCP Family Medicine; Visit Provider Specialist
DX: E03.9 Hypothyroidism, unspecified (principal); E05.90 Thyrotoxicosis, unspecified without thyrotoxic crisis or storm
CPT/HCPCS: 36415; 84439; 84443; 84481

== ENCOUNTER → 2021-05-29 10:51 | Outpatient (BNVA) | payer MEDICARE, SELFPAY | PROVIDERS: PCP Family Medicine; Visit Provider Internal Medicine | DX: E53.8 Deficiency of other specified B group vitamins (principal); R29.90 Unspecified symptoms and signs involving the nervous system; E04.1 Nontoxic single thyroid nodule; I10 Essential (primary) hypertension; E05.90 Thyrotoxicosis, unspecified without thyrotoxic crisis or storm; Z87.891 Personal history of nicotine dependence | CPT/HCPCS: 96372; 99214 ==

== ENCOUNTER → 2021-06-04 14:40 | Outpatient (BNVA) | payer MEDICARE, SELFPAY | PROVIDERS: PCP Family Medicine; Visit Provider Specialist | DX: E53.8 Deficiency of other specified B group vitamins (principal); R29.90 Unspecified symptoms and signs involving the nervous system | CPT/HCPCS: 96372 ==

== ENCOUNTER → 2021-06-12 10:28 | Outpatient (BNVA) | payer MEDICARE, SELFPAY | PROVIDERS: PCP Family Medicine; Visit Provider Specialist | DX: E53.8 Deficiency of other specified B group vitamins (principal); G62.9 Polyneuropathy, unspecified | CPT/HCPCS: 96372 ==

== ENCOUNTER → 2021-07-04 11:02 | Outpatient (BNVA) | payer MEDICARE, SELFPAY | PROVIDERS: PCP Family Medicine; Visit Provider Specialist | DX: M25.562 Pain in left knee (principal) | CPT/HCPCS: 73560; 73565 ==

== ENCOUNTER 2021-08-14 14:59 | Observation (INO) | payer MEDICARE, SELFPAY ==
[2021-08-13 11:26] LABS: Free T4 Free Thyroxine 0.86 ng/dL (0.82-1.77)
[2021-08-13 11:59] VITALS: BMI 36.8
[2021-08-13 14:34] LABS: T3 Free 2.9 PG/ML (2.0-4.4)
[2021-08-14] VITALS (86 sets, daily range): BP systolic 82–143; BP diastolic 55–105; PULSE 66–122; RESP 9–31; TEMP 36.3–37; O2SAT 85–99
[2021-08-14] MEDS: sodium chloride 0.9% 1,000 ML 30 ML IV ×2 (06:48→12:30)
--- NOTE | 2021-08-14 06:49 | W.PM.OPSUD ---
Surgery/Procedure H&P Update DATE OF PROCEDURE: August 14, 2021 DATE H&P PERFORMED: 07/27/21 PRIMARY INDICATION FOR PROCEDURE: Right thyroid Nodule PLANNED PROCEDURE: Operation Date: 08/14/21 07:00 Proposed Procedures p Hemithyroidectomy(Right) - Davey Roberts MD
--- NOTE | 2021-08-14 06:52 | ANES.PREANE2 ---
Pre-Anesthetic Assessment Height/Weight: Height 1.78 m Weight 116.573 kg Temp Pulse Resp BP Pulse Ox 97.6 F 81 18 111/74 96 08/14/21 06:42 08/14/21 06:42 08/14/21 06:42 08/14/21 06:42 08/14/21 06:42 Preop Diagnosis: thryotoxicosis , thyroid nodule Operation Date: 08/14/21 07:00 Proposed Procedures p Hemithyroidectomy(Right) - Davey Roberts MD Familial anesthetic complications: none Was Beta Fermin taken within 24 hours: Yes Was Clonidine taken within 24 hours: N/A Last intake: Intake Last Liquid Date 08/13/21 Last Liquid Time 23:45 Last Solid Date 08/13/21 Last Solid Time 18:00 Social No alcohol and No tobacco Exam alert, oriented x 3, clear to auscultation bilaterally and regular rate & rhythm Airway Submandibular: within normal limits Cervical ROM: within normal limits Mallampati: Class II Dentition: full Comments: Comments: Hx of neck fusion, full ROM Pulmonary Exertional Dyspnea (Works in yard, does get SOB with flight of stairs (no CP)) CV/HEM Atrial Fibrillation, Congestive Heart Failure and Hypertension Antiocoagulation for afib held 5 days METS = 4 Afib on EKG today None reported Hepatic None reported GI Gastroesophageal Reflux Disease (Well controlled ) Metabolic Thyroid Disease Musc/skel Lower Back Pain (Facet syndrome ) and Osteoarthritis/DJD Neuropsych Neuropathy Anesthetic Plan ASA status: 3 (65 year old male with CHF, afib, HTN, GERD, thyrotoxicosis on Lugols solution ) Anesthesia: Anesthesia Evaluation and General Other: We discussed risk and benefits of general anesthesia including PONV, sore throat (sometimes severe), corneal abrasion, positioning and peripheral nerve injuries, life threatening allergic reaction, post operative ICU admission requiring prolonged intubation, stroke, heart attack, , and rare incidences of recall. Patient consents to proceed with general anesthesia. Risk of > 500 ml blood loss (7ml/kg in children): No Medications/Allergies Home Medications Medication Instructions Recorded Confirmed Last Taken Type omeprazole 40 mg capsule,delayed 40 mg PO DAILY cap 04/21/19 08/13/21 08/13/21 History release gabapentin 300 mg capsule 300 mg PO TID 30 Days #90 cap 10/14/19 08/13/21 08/13/21 Rx metoprolol tartrate 50 mg tablet 50 mg PO BID #180 tab 12/26/20 08/14/21 08/14/21 05:10 Rx hydrochlorothiazide 25 mg tablet 12.5 mg PO DAILY #60 tab 04/16/21 08/13/21 08/13/21 Rx rivaroxaban 20 mg tablet (Xarelto) 20 mg PO DAILY #90 tab 06/22/21 08/13/21 08/08/21 Rx methimazole 5 mg tablet 2.5 mg PO .QOD #90 tab 07/18/21 08/14/21 08/12/21 Rx lisinopril 2.5 mg tablet 2.5 mg PO DAILY #90 tab 07/19/21 08/13/21 08/13/21 Rx iodine strong (Lugols) 5 % oral 18 drp PO TID 08/14/21 08/14/21 08/13/21 History solution (Strong Iodine) Allergies Allergy/AdvReac Type Severity Reaction Status Date / Time No Known Allergies Allergy Verified 08/13/21 11:58 Current Medications Generic Name Dose Route Start Last Admin Trade Name Freq PRN Reason Stop Dose Admin Sodium Chloride 1,000 mls @ 30 mls/hr 08/14/21 06:15 08/14/21 06:48 Sodium Chloride 0.9% IV 08/15/21 06:14 30 mls/hr .Q24H GEE Administration PFSH Anesthesia Medical History Anticoagulation adequate with anticoagulant therapy Xarelto Atrial fibrillation Congestive heart failure Essential hypertension Facet syndrome, lumbar Long-term use of high-risk medication Low back pain with radiation Nonischemic cardiomyopathy Osteoarthritis of both knees Spinal stenosis, lumbar Surgical History History of bowel resection LARGE BOWEL Hx of neck surgery S/P hernia repair S/P routine circumcision S/P tonsillectomy Family History Mother Stroke Father CAD (coronary artery disease) Myocardial infarct Denies family history of Anesthesia complication Bleeding disorder Social History Smoking and tobacco status: former smoker Second hand smoke exposure: No Smoking risk assessment/counseling performed?: Yes Alcohol intake: never Desire information about alcohol rehabilitation?: No Counseling given: Yes Desire information about substance/drug rehabilitation?: No Counseling given: Yes Adopted: No Caregiver/support person: No Lives independently: Yes Household members: spouse Housing: House Marital status: Number of children: 0 Highest education level completed: High School Graduate service: No Current occupational status: retired History of recent travel: No Data Anesthesia : 08/14/21 06:30 Cardiac Studies: No Data to Display
[2021-08-14 07:41] LABS: Anion Gap 12.8 (5-19); Blood Urea Nitrogen 16 mg/dL (8-23); Calcium 9.4 mg/dL (8.5-10.5); Carbon Dioxide 28 mmol/L (22-29); Chloride 101 mmol/L (98-107); Glomerular Filtration Rate 74.5 mL/min (90-130); Glucose 101 mg/dL (65-115); Osmolality Calculated 287 mOsm/kg (285-295); Potassium 3.8 mmol/L (3.5-5.1); Sodium 138 mmol/L (136-145)
[2021-08-14 07:51] LABS: Thyroid Stimulating Hormone 7.22 uIU/mL (0.27-4.20)
[2021-08-14] MEDS: ceFAZolin 1,000 mg SDV 1000 MG IRRIGATION (08:02)
[2021-08-14] MEDS: EPINEPHrine 1 mg/mL INJ XX ×2 (08:02→10:08)
[2021-08-14] MEDS: fluorescein 1 mg Strip 2 MG XX (10:07)
[2021-08-14] MEDS: thrombin 5,000 unit SDV 5000 UNIT XX (10:28)
--- NOTE | 2021-08-14 11:01 | P.OP_ITS ---
Operative Report Date of procedure: August 14, 2021 Pre-op diagnosis: Preop Diagnosis thryotoxicosis , thyroid nodule Post-op diagnosis: same Post-op findings: Right thyroid lobe goiter Intact Right recurrent laryngeal nerve Right upper parathyroid identified and preserved in place O/W normal right thyroid bed Procedure done: Right hemithyroidectomy Implants: None Pathology: Right thyroid lobe Surgeon: Davey Roberts Pharmacogeneticist: Heather Nassar Anesthesia: General Estimated blood loss (mL): 50 IV fluids (mL): 900 Urine output (mL): 200 Complications: None Findings: Large right thyroid lobe Right recurrent laryngeal nerve normal and intact Right upper parathyroid identified and left insitu O/W normal right thyroid/right neck exam Condition: stable Disposition: ICU Brief History: 65 yo wm with a h/o thyrotoxicosis secondary to a hyperfunctioning right thyroid nodule who desires surgicaltherapy. Procedure: The patient was identified the preoperative holding area and was taken to the operating room where he was placed on the operating table in the supine position. Anesthesia was obtained with general endotracheal anesthesia with a nerve monitoring endotracheal tube. With the endotracheal tube in the proper position, a horizontal skin incision was drawn out on the patient's anterior neck 2 fingerbreadths above the sternal notch. The incision was injected with local anesthesia and the patient was then prepped and draped in the usual sterile fashion. The Nirvana nerve monitoring system was in place and functional on the patient at this point. The anterior neck incision was made with a #15 blade and was carried down through subcutaneous tissues into the subcutaneous fat. Electrocautery and the harmonic scalpel were used to dissect down through the subcutaneous fat until the strap muscles were identified. The strap muscles were then in the avascular midline in the sagittal plane and were dissected off of the underlying thyroid gland. At this point the Rector retractor was placed on the patient and the thyroid gland was exposed to the operating surgeon. At this point, using the Nirvana nerve monitoring hemostat, the right thyroid lobe was dissected free from the surrounding tissues. The isthmus was dissected off of the trachea and was divided with the harmonic scalpel. At this point the right lobe of the thyroid was rotated medially and was dissected circumferentially with the nerve monitoring hemostat. The right carotid sheath was exposed and the right vagus nerve was stimulated with the nerve monitoring hemostat and the circuit was found to be intact. At this point the dissection proceeded to the right middle thyroid vein which was dissected free from the surrounding tissues was clipped with ligaclips and was retracted laterally. Attention was then turned to the right inferior pole which was dissected free from the surrounding tissues. Each inferior pole vessel was dissected free and clipped and retracted inferiorly. The right thyroid lobe was rotated medially and attention was turned to the superior pole. The individual superior pole vessels were dissected free from the surrounding tissue and were clipped and retracted superiorly. There was significant adhesion of the gland to the Ramsay's ligament area, and the dissection proceeded slowly at this point until the recurrent laryngeal nerve was identified both electrically and visually. The nerve was dissected free from the overlying thyroid gland and the thyroid gland was then rotated medially and dissected free from the underlying airway using the microbipolar forceps. At this point with the recurrent laryngeal nerve in view, the right thyroid lobe was dissected free from the underlying airway and was removed and sent for specimen analysis. The integrity of the right recurrent laryngeal nerve was confirmed by stimulating the right vagus nerve again and was found to be intact. At this point the wound was inspected for hemostasis and the wound was irrigated with a copious amount of warm normal saline. Hemostasis was achieved with bipolar cautery. At this point, the recurrent laryngeal nerve on the right was covered with Gelfoam soake d in thrombin and Decadron. A closed suction drain was placed in the wound, and the wound was then closed with running and interrupted 4-0 Monocryl sutures in the subcu and a running 5-0 Monocryl suture in the subcu. The external part of the wound was then secured with Dermabond on the skin and Steri-Strips. At this point the procedure was terminated and control of the patient was returned to a [facility] where he underwent an uneventful reversal of anesthesia and extubation and was taken to the recovery room in stable condition. There were no operative or anesthetic complications.
--- NOTE | 2021-08-14 11:14 | SUR.PHASEI ---
1059 PT TO PACU 5 PT SLEEPS WITH ORAL AIRWAY IN PLACE, GOOD RESP EFFORT NOTED 8L MASK IN PLACAE, MID ANTERIOR NECK DRESSING WITH STERI STRIPS OINTMENT AND LATANYA DRAIN TO RT SIDE OF INCISION COMPRESSED WITH SMALL AMT LT RED DRAINAGE IN TUBING. PT HAS #18 IV TO RT WRIST WITH NS 100ML UP PER GRAVITY. BILAT SCDS ON . PT ID BRACELET TO LT WRIST , PT ID'D WITH 2 IDENTIFIERS. 1110 PT AWAKES AND ORAL AIRWAY OUT PT VERBALIZED NO PAIN OR NAUSEA AT THIS TIME, PT QUICKLY BACK TO SLEEP PT GIVEN WARM BLANKETS X 2.
--- NOTE | 2021-08-14 11:41 | SUR.PHASEI ---
1135 PT ON RA TRIAL, PT AWAKE ALERT , NODS HEAD YES AND NO APPROPRIATELY, VSS NECK DRESSING D/I UNCHANGED FROM EARLIER NO HEMATOME OR BLEEDING NOTED LATANYA DRAIN COMPRESSED TO ACHIEVE GOOD SUCTION 1140 PT SATS 93% NO DISTRESS NOTED PT SLEEPS IF NOT DISTURBED, PT PLACED ON 3LNC SATS QUICKLY UP TO 96% ,NECK INCISION AREA UNCHANGED. VSS.
--- NOTE | 2021-08-14 12:03 | SUR.PHASEI ---
PT DENIES PAIN , REQUESTS URINAL, PT GIVEN URINAL, CURTAINS PULLED FOR PRIVACY, PT SATS 96% ON 3LNC, NO DISTRESS NOTED SURGICAL SITE UNCHANGED.
--- NOTE | 2021-08-14 12:16 | SUR.PHASEI ---
LATE ENTRY 1110 VERBAL ORDERS PER OLEG TELLEZ TO USE DILAUDID FIRST FOR PAIN IN PACU PER PACU PAIN ORDERS./ DR ALATORRE.
--- NOTE | 2021-08-14 12:25 | SUR.PHASEI ---
ATTEMPTED TO CALL FOR SECOND TIME SINCE PT ARRIVAL IN PACU, NO ANSWER, NO FAMILY IN WAITING ROOM. PT UNABLE TO USE URINAL PT SLEEPS IF NOT DISTURBED.
--- NOTE | 2021-08-14 13:15 | ANE.PACU2 ---
Inpatient post-anesthesia follow up: Airway intact: Yes Vital signs: Temperature 97.4 F Pulse Rate 90 Respiratory Rate 16 Blood Pressure 128/94 Pulse Oximetry 97 Oxygen Delivery Me thod Nasal Cannula Oxygen Flow Rate 3 Fraction of Inspir ed Oxygen Hydration adequate: Yes Nausea and vomiting: No Pain level: 1 Mental status: Baseline
[2021-08-14] MEDS: morphine 4 mg/mL SDV 1 mL 2 MG IVP ×2 (13:36→14:22)
--- NOTE | 2021-08-14 15:27 | SUR.PHASEI ---
1458 PT TO ICU PER CART , PT IN ROOM WITH PT PT VERY ALERT TALKATIVE JOKING WITH MAJOR RN. IV PATENT PT STANDS AND GETS IN BED WITHOUT ASSIST, NECK INCISION WELL APPROXIMATED, PT UNABLE TO VOID PER URINAL. BILAT SCDS ON. IV PLACED ON PUMP PER RN , BEDSIDE HANDOFF TO RN. AT BEDSIDE.
[2021-08-14] MEDS: tamsulosin 0.4 mg Capsule PO (15:59)
[2021-08-14] MEDS: lactated ringers 1,000 ML 125 ML IV ×2 (16:00→23:36)
--- NOTE | 2021-08-14 17:46 | PM.PN ---
Subjective Subjective: 65 yo wm who is night of surgery s/p right hemithyroidectomy. The patient reports that he is doing well and has no c/o. His voice is unchanged from preop. Medications: Reviewed: Yes Vitals/I&O/Wt Last Vital Signs Temp 97.5 F L 08/14/21 15:00 Pulse 91 08/14/21 15:00 Resp 15 08/14/21 15:00 BP 115/66 08/14/21 15:00 Pulse Ox 97 08/14/21 15:32 08/14/21 08/14/21 08/14/21 06:59 14:59 22:59 Intake Total 1050 / 1050 Output Total 450 / 450 Balance 600 / 600 Weight last 48 hrs Weight 116.573 kg Weight 116.573 kg Physical Exam Const: COMMON NORMALS: no acute distress, patient oriented x3, healthy appearing and alert HENMT: COMMON NORMALS: normocephalic, atraumatic, external ears normal and Normal external nose present HEAD & SCALP: normocephalic and atraumatic FACE & SINUS: normal facial exam NOSE: Normal external nose present EXTERNAL EAR: Yes external ears normal Eye: COMMON NORMALS: conjunctivae normal and no scleral icterus CONJUNCTIVA: Yes conjunctivae normal Neck/C-Spine: COMMON NORMALS: no lymphadenopathy THYROID: other (Thyroid incision intact without swelling, no erythema, drain in place. ) Lymph: LYMPHATIC: no lymphadenopathy noted Chest: COMMONS NORMALS: normal inspection of the chest Resp: COMMON NORMALS: normal respiratory effort, No use of accessory muscles and clear to auscultation bilaterally AUSCULTATION: clear to auscultation bilaterally Cardio: COMMON NORMALS: regular rate, regular rhythm, No gallops present (Cardio), No murmurs present (Cardio) and No rub (Cardio) RATE: regular rate RHYTHM: regular rhythm GI: COMMON NORMALS: Normal to inspection, nondistended, normoactive bowel sounds present Neuro: COMMON NORMALS: patient oriented x3 SENSORIUM/ORIENTATION: Yes alert Urinary Catheter Management: Torre: Cath Placed During This Visit: yes, but has since been removed by the nurse Urinary Catheter Date of Insertion: 08/14/21 Urinary Catheter Time of Insertion: 07:22 Date Urinary Catheter Removed: 08/14/21 Time Urinary Catheter Discontinued: 10:41 Data : 08/14/21 07:11 A&P Assessment and plan (1) Hot thyroid nodule: Impression: 65 yo wm who is night of surgery s/p right hemithyroidectomy doing well. Plan: - ICU observation overnight - Closed suction drainage - Pain control - Resume home medications except Xarelto - Regular diet - Anticipate d/c in the am Status: Acute Attestations Medical Necessity Statement*: The patient requires overnight observation of his airway. Coding Level of Care Code Acute Customer Support Representative for Chandra Galeano Diagnoses Hot thyroid nodule E04.1
[2021-08-14] MEDS: calcium carbonate 500 mg Chew Tablet PO (17:52)
[2021-08-14] MEDS: docusate sodium 100 mg Capsule PO (17:53)
[2021-08-14] MEDS: metoprolol tartrate 50 mg Tablet PO (17:53)
[2021-08-14] MEDS: calcium carbonate 500 mg Chew Tablet 1000 MG PO (18:37)
--- NOTE | 2021-08-14 18:48 | PC.NURSE ---
Received patient from PACU staff at 1523. VItals: 124/90, HR: 90, RR: 18, SPO2: 94. Temp: 98.2. Patient is alert to person, place, time, and situation, but is still altered. frequently asking repetitive questions and has delayed responses.
--- NOTE | 2021-08-14 18:50 | PC.NURSE ---
Patient has not voided since catheter was removed approximately 4 hours ago and states that he hasn't been able to despite trying. Nurse bladder scanned patient and it shows 410mL retaining. NUrse alerted Dr soto and recieved orders for a straight cath. NUrse explained procedure to the patient, patient asked for 30 more minutes to try and void before placing the straight cath. Patient was able to void after 30 minutes. 350mL voided.
--- NOTE | 2021-08-14 18:52 | PC.NURSE ---
Shift summary: Uneventful shift Patient came back form surgery at 1523. Mental status has improved and he is now alert and oriented without any confusion. Nurse has frequently monitored chest and neck sound with no changes. Patient reports some soreness to the neck, but hsa been tolerable and no pain medication required. 20mL of sanguinous fluid emptied form drain.
[2021-08-14] MEDS: gabapentin 300 mg Capsule PO (20:53)
[2021-08-15] VITALS (8 sets, daily range): BP systolic 89–108; BP diastolic 60–67; PULSE 86–104; RESP 15–27; TEMP 36.9; O2SAT 94–97
[2021-08-15] MEDS: oxyCODONE-APAP 5-325 mg Tablet 1 TAB PO (01:01)
--- NOTE | 2021-08-15 05:18 | P.PN_ITS ---
Subjective Subjective: 65 yo wm who is POD #1 s/p right hemithyroidectomy for [place]'s disease/Toxic right inferior pole thyroid nodule. The patient is without c/o. His voice is unchanged from preop, he is taking po well, and has required very little pain medication. The patient is o/w without c/o. Medications: Reviewed: Yes Vitals/I&O/Wt Last Vital Signs Temp 97.8 F 08/14/21 16:00 Pulse 104 H 08/15/21 01:15 Resp 21 H 08/15/21 01:15 BP 106/67 08/15/21 01:15 Pulse Ox 96 08/15/21 01:15 08/14/21 08/14/21 08/15/21 14:59 22:59 06:59 Intake Total 1050 / 1050 700 / 1750 1010 / 2760 Output Total 450 / 450 645 / 1095 10 / 1105 Balance 600 / 600 55 / 655 1000 / 1655 Weight last 48 hrs Weight 116.573 kg Weight 116.573 kg Physical Exam Const: COMMON NORMALS: no acute distress, patient oriented x3 and alert HENMT: COMMON NORMALS: normocephalic, atraumatic and Normal external nose present HEAD & SCALP: normocephalic and atraumatic FACE & SINUS: normal facial exam and face symmetric NOSE: Normal external nose present Eye: COMMON NORMALS: conjunctivae normal and no scleral icterus CONJUNCTIVA: Yes conjunctivae normal Neck/C-Spine: COMMON NORMALS: no lymphadenopathy and supple GENERAL: Yes other THYROID: other (Neck incision intact without swelling or erythema. ) Lymph: LYMPHATIC: no lymphadenopathy noted Chest: COMMONS NORMALS: normal inspection of the chest and normal palpation of entire chest wall Resp: COMMON NORMALS: normal respiratory effort, No use of accessory muscles and clear to auscultation bilaterally AUSCULTATION: clear to auscultation bilaterally Cardio: COMMON NORMALS: regular rate, regular rhythm, No gallops present (Cardio) and No murmurs present (Cardio) RATE: regular rate RHYTHM: regular rhythm GI: COMMON NORMALS: Normal to inspection, nondistended, normoactive bowel sounds present Extremity: COMMON NORMALS: normal to inspection Neuro: COMMON NORMALS: patient oriented x3 and CN's II-XII intact bilaterally SENSORIUM/ORIENTATION: Yes alert CRANIAL NERVES: Yes other (The patient's voice is unchanged from preop.) Psych: COMMON NORMALS: mental status grossly normal Urinary Catheter Management: Torre: Cath Placed During This Visit: yes, but has since been removed by the nurse Urinary Catheter Date of Insertion: 08/14/21 Urinary Catheter Time of Insertion: 07:22 Date Urinary Catheter Removed: 08/14/21 Time Urinary Catheter Discontinued: 10:41 Data : 08/14/21 07:11 Attestation for Other Data: I personally reviewed and interpreted the following: Other data: Chemistries A&P Assessment and plan (1) Hot thyroid nodule: Impression: 1) POD #1 s/p right hemithyroidectomy - doing well 2) Afib - stable Plan: 1) Continue closed suction drainage; [place] () tabs: take 1-2 tabs po Q5 hours prn pain, #25, NR; Regular diet; resume all preop medications; f/u in Dr. Roberts's office on 08/17/21 @ 13:00 hours; notify Dr. Roberts for any problems 2) Restart Xarelto today Status: Acute Attestations Medical Necessity Statement*: The patient required overnight observation of his airway. Coding Level of Care Code Acute Automatic Glove Turner And Former for [facility] Roberto Diagnoses Hot thyroid nodule E04.1
[2021-08-15] MEDS: gabapentin 300 mg Capsule PO (08:42)
--- NOTE | 2021-08-15 09:00 | PC.NURSE ---
Pt requested to take all of his morning medication when he got home today.
--- NOTE | 2021-08-15 10:01 | PC.NURSE ---
Pt was discharged via wheelchair at 0945. Pt requested to be taken to endocrinology office in the building for appointment. All education was provided using teach back method.
== END 2021-08-15 09:45 | disposition home or self-care (01) ==
LOC: ICU 14:59
PROVIDERS: Anesthesiology; Admitting Provider Specialist; PCP Family Medicine; Visit Provider Specialist
PROC: (CPT 60220; principal; 2021-08-14 07:00)
DX: E05.90 Thyrotoxicosis, unspecified without thyrotoxic crisis or storm (principal); E04.1 Nontoxic single thyroid nodule; I48.91 Unspecified atrial fibrillation; I11.0 Hypertensive heart disease with heart failure; I50.9 Heart failure, unspecified; K21.9 Gastro-esophageal reflux disease without esophagitis; Z79.01 Long term (current) use of anticoagulants; M17.0 Bilateral primary osteoarthritis of knee; Z87.891 Personal history of nicotine dependence; E89.0 Postprocedural hypothyroidism
CPT/HCPCS: 60220; 12345; 36415; 51702; 80048; 84439; 84443; 84481; 88307; 94664; 99214; G0378; J0171; J0330; J0690; J1100; J2250; J2270; J2405; J2704; J3010; J3490; J7030

== ENCOUNTER → 2021-08-15 09:51 | Outpatient (BNVA) | payer MEDICARE, SELFPAY | PROVIDERS: PCP Family Medicine; Visit Provider Internal Medicine | DX: E89.0 Postprocedural hypothyroidism (principal); E04.1 Nontoxic single thyroid nodule; E05.90 Thyrotoxicosis, unspecified without thyrotoxic crisis or storm; Z87.891 Personal history of nicotine dependence | CPT/HCPCS: 99214 ==

== ENCOUNTER 2021-08-30 11:50 | Outpatient (CLI) | payer MEDICARE, SELFPAY ==
[2021-08-30 13:11] LABS: Thyroid Stimulating Hormone 1.73 uIU/mL (0.27-4.20)
[2021-08-30 19:42] LABS: Free T4 Free Thyroxine 1.06 ng/dL (0.82-1.77)
[2021-08-31 08:09] LABS: T3 Total 147 ng/dL (76-181)
== END 2021-08-30 11:51 | disposition home or self-care (01) ==
LOC: LAB 11:53
PROVIDERS: PCP Family Medicine; Visit Provider Internal Medicine
DX: E89.0 Postprocedural hypothyroidism (principal)
CPT/HCPCS: 84439; 84443; 84480

== ENCOUNTER → 2021-10-19 10:57 | Outpatient (BNVA) | payer MEDICARE, SELFPAY | PROVIDERS: PCP Family Medicine; Visit Provider Internal Medicine | DX: E89.0 Postprocedural hypothyroidism (principal); E04.1 Nontoxic single thyroid nodule; E05.90 Thyrotoxicosis, unspecified without thyrotoxic crisis or storm; Z87.891 Personal history of nicotine dependence | CPT/HCPCS: 99214 ==

== ENCOUNTER 2022-01-28 11:10 | Outpatient (CLI) | payer MEDICARE, SELFPAY ==
[2022-01-28 12:45] LABS: Cholesterol 133 mg/dL (0-200)
[2022-01-28 14:00] LABS: HDL Cholesterol 40 mg/dL (60-100); LDL Cholesterol Calculated 65 mg/dL (50-129); LDL HDL Ratio 1.63 RATIO (0.00-3.22); Triglycerides 133 mg/dL (0-150)
[2022-01-28 14:32] LABS: Free T4 Free Thyroxine 1.03 ng/dL (0.82-1.77); Thyroid Stimulating Hormone 2.06 uIU/mL (0.27-4.20)
[2022-01-29 09:09] LABS: T3 Total 134 ng/dL (76-181)
== END 2022-01-28 11:11 | disposition home or self-care (01) ==
PROVIDERS: Internal Medicine; PCP Family Medicine; Visit Provider Family Medicine
DX: E04.1 Nontoxic single thyroid nodule (principal); I10 Essential (primary) hypertension; K21.9 Gastro-esophageal reflux disease without esophagitis; Z85.038 Personal history of other malignant neoplasm of large intestine; E05.90 Thyrotoxicosis, unspecified without thyrotoxic crisis or storm; E89.0 Postprocedural hypothyroidism
CPT/HCPCS: 36415; 80061; 84439; 84443; 84480

== ENCOUNTER → 2022-02-18 10:30 | Outpatient (BNVA) | payer MEDICARE, SELFPAY | PROVIDERS: PCP Family Medicine; Visit Provider Specialist | DX: M17.12 Unilateral primary osteoarthritis, left knee (principal) | CPT/HCPCS: 73560; 73565; 99214 ==

== ENCOUNTER → 2022-02-27 14:06 | Outpatient (BNVA) | payer MEDICARE, SELFPAY | PROVIDERS: PCP Family Medicine; Visit Provider Nurse Practitioner Family | DX: I42.8 Other cardiomyopathies (principal) | CPT/HCPCS: 99213 ==

== ENCOUNTER 2022-03-21 12:15 | Outpatient (CLI) | payer MEDICARE, SELFPAY ==
--- NOTE | 2022-03-21 12:30 | CT_ITS ---
WS: [id number] CT LEFT KNEE, NONCONTRAST TECHNIQUE: Noncontrast CT of the LEFT knee to include the LEFT hip and ankle. CLINICAL INFORMATION: M17.12 - Unilateral primary osteoarthritis, left knee COMPARISON: None. DLP: 934.[address] scans at [facility] use at least one of these dose optimization techniques: automated e xposure control; mA and/or kV adjustment per patient size (includes targeted exams where dose is matc hed to clinical indication); or iterative reconstruction. FINDINGS: Moderate degenerative arthritis LEFT knee with medial compartment narrowing with [id number] articul ation. Hypertrophic patella. Small suprapatellar effusion. Mild to moderate degenerative narrowing patito th hips. Normal pubic rami. Somewhat prominent prostate measuring 4.4 cm. Normal sigmoid colon. A few diverticuli. CT/CT knee LT [facility] IMPRESSION: Images obtained for preoperative purposes.
== END 2022-03-21 12:16 | disposition home or self-care (01) ==
LOC: RAD 12:17
PROVIDERS: PCP Family Medicine; Visit Provider Specialist
DX: M17.12 Unilateral primary osteoarthritis, left knee (principal)
CPT/HCPCS: 73700

== ENCOUNTER 2022-04-02 11:11 | Observation (INO) | payer MEDICARE, SELFPAY ==
[2022-03-28 10:03] VITALS: BMI 34.4
--- NOTE | 2022-03-28 10:14 | ECG_ITS ---
[facility] Test Date: 2022-03-28 Pat Name: Helder Mccloud Department: Room: Gender: Male Career Specialist: : [id number] Requested By: Antony Fajardo Order Number: [id number] Kathie MD: Deion Gaitan M.D. Measurements Intervals [place] Rate: 82 P: 0 [place]: 0 QRS: 54 QRSD: 89 T: 52 QT: 368 QTc: 431 Interpretive Statements ATRIAL FIBRILLATION WITH ABERRANT CONDUCTION OR VENTRICULAR PREMATURE COMPLEXES LOW QRS VOLTAGE IN PRECORDIAL LEADS [QRS DEFLECTION < 1.0 mV IN CHEST LEADS] POSSIBLE ANTERIOR MYOCARDIAL INFARCTION , PROBABLY OLD [30 ms Q WAVE IN V3/V4, OR R < 0.2 mV IN V4] Compared to ECG 05/25/2014 08:00:12 Ventricular premature complex(es) now present Aberrant conduction of supraventricular beat(s) now present Low QRS voltage now present Myocardial infarct finding now present Electronically Signed On 03-28-2022 12:58:06 PLATE FORMER by Deion Gaitan M.D. [id number]
[2022-03-28 10:22] LABS: Basophils # 0.1 10^3/uL (0.0-0.1); Eosinophils # 0.2 10^3/uL (0.0-0.8); Hematocrit 44.9 % (42.0-52.0); Hemoglobin 15.2 g/dL (11.7-16.6); Lymphocytes # 1.1 10^3/uL (0.8-4.8); Mean Corpuscular HGB Conc 33.9 g/dL (30.0-36.0); Mean Corpuscular Hemoglobin 29.7 pg (28.0-34.0); Mean Corpuscular Volume 87.7 fl (80-94); Mean Platelet Volume 9.2 fL (7.4-10.4); Monocytes # 0.3 10^3/uL (0.2-0.9); Monocytes % 7.1 %; Neutrophils # 3.14 10^3/uL (1.8-7.7); Neutrophils % 65.7 %; Nucleated Red Blood Cells % 0 %; Platelet Count 222 10^3/cmm (130-400); Red Blood Count 5.12 10^6/uL (4.1-5.3); Red Cell Distribution Width 12.3 % (12.1-15.1); White Blood Count 4.8 10^3/uL (4.0-10.0)
[2022-03-28 10:37] LABS: Anion Gap 12.4 (5-19); Blood Urea Nitrogen 21 mg/dL (8-23); Calcium 9.3 mg/dL (8.5-10.5); Carbon Dioxide 29 mmol/L (22-29); Chloride 99 mmol/L (98-107); Glomerular Filtration Rate 74.3 mL/min (90-130); Glucose 109 mg/dL (65-115); Osmolality Calculated 288 mOsm/kg (285-295); Potassium 3.4 mmol/L (3.5-5.1); Sodium 137 mmol/L (136-145)
--- NOTE | 2022-03-28 12:43 | ANES.PREANE2 ---
Pre-Anesthetic Assessment Height/Weight: Height 1.78 m Weight 108.862 kg Preop Diagnosis: thryotoxicosis , thyroid nodule Operation Date: 04/02/22 07:00 Proposed Procedures p LEFT TOTAL KNEE ARHTROPLASTY 25148,M17.10(Left) - Gabriela Borrero MD Familial anesthetic complications: none Was Beta Fermin taken within 24 hours: N/A Was Clonidine taken within 24 hours: N/A Social No alcohol and No tobacco Exam alert, oriented x 3 and clear to auscultation bilaterally irregular Airway Submandibular: within normal limits Cervical ROM: within normal limits Mallampati: Class II Dentition: chipped CV/HEM Atrial Fibrillation and Hypertension Xeralto GI Gastroesophageal Reflux Disease Metabolic Hyperlipidemia Musc/skel Lower Back Pain and Osteoarthritis/DJD Neuropsych Neuropathy Anesthetic Plan ASA status: 3 Anesthesia: Regional (specify below) (SAB with adductor blk (asked to hold Xarelto, last day Thursday 03/29)) Medications/Allergies Home Medications Medication Instructions Recorded Confirmed Last Taken Type omeprazole 40 mg capsule,delayed 40 mg PO DAILY 04/21/19 03/28/22 03/27/22 10:00 History release gabapentin 300 mg capsule 300 mg PO TID 30 days #90 caps 10/14/19 03/28/22 03/27/22 23:59 Rx rivaroxaban 20 mg tablet (Xarelto) 20 mg PO DAILY #90 tabs 06/22/21 03/28/22 03/27/22 10:00 Rx lisinopril 2.5 mg tablet 2.5 mg PO DAILY #90 tabs 07/19/21 03/28/22 03/27/22 10:00 Rx metoprolol tartrate 50 mg tablet 50 mg PO BID #180 tabs 12/19/21 03/28/22 03/27/22 23:50 Rx atorvastatin 10 mg tablet 10 mg PO DAILY 02/18/22 03/28/22 03/27/22 10:00 History meloxicam 15 mg tablet 15 mg PO DAILY 02/18/22 03/28/22 03/27/22 08:00 History furosemide 20 mg tablet 20 mg PO DAILY #90 tabs 02/27/22 03/28/22 03/27/22 10:00 Rx hydrochlorothiazide 25 mg tablet 12.5 mg PO DAILY #60 tabs 11/03/28/22 03/27/22 10:00 Rx Allergies Allergy/AdvReac Type Severity Reaction Status Date / Time No Known Allergies Allergy Verified 03/28/22 09:58 [facility] Anesthesia Medical History Anticoagulation adequate with anticoagulant therapy Xarelto Atrial fibrillation Congestive heart failure Essential hypertension Facet syndrome, lumbar Long-term use of high-risk medication Low back pain with radiation Nonischemic cardiomyopathy Osteoarthritis of both knees Spinal stenosis, lumbar Surgical History H/O partial thyroidectomy History of bowel resection LARGE BOWEL Hx of neck surgery S/P hernia repair S/P routine circumcision S/P tonsillectomy Family History Mother Stroke Father CAD (coronary artery disease) Myocardial infarct Denies family history of Anesthesia complication Bleeding disorder Social History Smoking and tobacco status: former smoker Second hand smoke exposure: No Smoking risk assessment/counseling performed?: Yes Alcohol intake: never Desire information about alcohol rehabilitation?: No Counseling given: Yes Desire information about substance/drug rehabilitation?: No Counseling given: Yes Adopted: No Caregiver/support person: No Lives independently: Yes Household members: spouse Housing: House Marital status: Number of children: 0 Highest education level completed: High School Graduate service: No Current occupational status: retired History of recent travel: No Data Anesthesia 03/28/22 10:15 03/28/22 10:15 Short CBC 03/28/22 Range/Units 10:15 WBC 4.8 (4.0-10.0) 10^3/uL Hgb 15.2 (11.7-16.6) g/dL Hct 44.9 (42.0-52.0) % MCV 87.7 (80-94) fl Plt Count 222 (130-400) 10^3/cmm Neut % (Auto) 65.7 % Neut # (Auto) 3.14 (1.8-7.7) 10^3/uL BMP 03/28/22 10:15 Sodium 137 Potassium 3.4 L Chloride 99 Carbon Dioxide 29 BUN 21 Creatinine 1.0 Glucose 109 Calcium 9.3 Cardiac Studies: No Data to Display
[2022-04-02] VITALS (14 sets, daily range): BP systolic 98–123; BP diastolic 70–84; PULSE 69–106; RESP 15–18; TEMP 36.3–36.8; O2SAT 94–99
[2022-04-02] MEDS: acetaminophen 1,000 MG/100 ML PIGGYBACK 400 MG IV ×3 (06:05→21:59)
[2022-04-02] MEDS: sodium chloride 0.9% 1,000 ML 30 ML IV (06:10)
[2022-04-02] MEDS: CELEcoxib 200 mg Capsule 400 MG PO (06:12)
--- NOTE | 2022-04-02 06:54 | P.ANESUD_ITS ---
Pre-Anesthetic Update Pre-Anesthetic Assessment: Date of Surgery/Procedure: 04/02/22 Preop Francisca gnosis: Primary osteoarthritis left knee Proposed Procedure: Operation Date: 04/02/22 07:00 Proposed Procedures p LEFT TOTAL KNEE ARHTROPLASTY 17094,M17.10(Left) - Gabriela Borrero MD Any changes to Pre-Anesthetic Assessment?: No Last Intake: Intake Last Liquid Date 04/01/22 Last Liquid Time 21:30 Last Solid Date 04/01/22 Last Solid Time 16:00 Vitals: Temperature 98.3 F 04/02/22 05:41 Temperature Source Temporal Artery S can 04/02/22 05:41 Pulse Rate 69 04/02/22 05:41 Respiratory Rate 16 04/02/22 05:41 Blood Pressure 123/84 04/02/22 05:41 Blood Pressure Jessica n 97 04/02/22 05:41 Pulse Oximetry 98 04/02/22 05:41 Oxygen Delivery Me thod 04/02/22 05:41 Exam: Pre-Anes Outpt Exam: alert, oriented x 3, clear to auscultation bilaterally and regular rate & rhythm Cardiac Studies: No Data to Display
--- NOTE | 2022-04-02 06:55 | ANES.PROC ---
Anesthesia Procedures Procedure/Date: 04/02/22 Nerve Block ^: Nerve Block 1: Main Anesthesia: spinal anesthesia block Time Out Performed: Yes Consent: requested by attending/covering physician, from patient, from other, risks and benefits reviewed and patient agrees to proceed Nerve block location: adductor canal (L) Anesthesia monitors applied: pulse oximetry, EKG, BP cuff and oxygen Nerve block position: supine Anesthetic Used: ropivicaine 0.5% (30 ml) and with decadron (4 mg) Ultrasound used to: recognize landmarks and visualize and ID femerol nerve Nerve Stimulator Used?: No Interscalene/Femoral BLK: 4 stimuplex 21 g needle used for position and inplane approach, visualize local anesthetic spread and no vascular puncture identified Injection: neg aspiration of heme Patient Tolerated Procedure: well Complications: none
--- NOTE | 2022-04-02 07:12 | W.PM.OPSUD ---
Surgery/Procedure H&P Update DATE OF PROCEDURE: April 02, 2022 DATE H&P PERFORMED: 03/28/22 H&P UPDATE INFORMATION: I have reviewed H&P completed within last 30 days, I have examined patient prior to procedure, No changes to prior documentation and H&P is in [facility] EMR on date indicated PREOP DIAGNOSIS: Primary osteoarthritis left knee PLANNED PROCEDURE: Operation Date: 04/02/22 07:00 Proposed Procedures p LEFT TOTAL KNEE ARHTROPLASTY 37484,M17.10(Left) - Gabriela Borrero MD Related Problem List Diagnoses (1) Primary osteoarthritis of left knee:
[2022-04-02] MEDS: ceFAZolin 2,000 MG in sodium chloride 0.9% (plus) 50 ML 100 MG IV ×3 (07:16→23:14)
[2022-04-02] MEDS: vancomycin 1,000 MG SDV 1000 MG XX (08:38)
[2022-04-02] MEDS: sodium chloride 0.9% 250 mL Bag 50 ML XX (08:38)
[2022-04-02] MEDS: tranexamic acid 1,000 mg/10mL SDV 1000 MG IRRIGATION (08:38)
[2022-04-02] MEDS: ceFAZolin 1,000 mg SDV 1000 MG IRRIGATION (08:39)
--- NOTE | 2022-04-02 11:01 | XR_ITS ---
WS: [id number] Left knee, 2 views, 04/02/2022 Clinical Data: Status post left total knee arthroplasty Comparison: Bilateral knees, left knee, 02/18/2022 Findings: A total left knee arthroplasty is in good position. There is postoperative air in the joint space. An terior subcutaneous surgical kody are present. XR/XR knee LT 1-2V 70460 Impression: Left knee arthroplasty.
--- NOTE | 2022-04-02 11:13 | P.PCN_ITS ---
PACU note Narrative: VSS, Good respiratory effort, report to PILE DRIVER OPERATOR Exam: awake
--- NOTE | 2022-04-02 11:13 | PM.PACU ---
PACU note Narrative: VSS, Good respiratory effort, report to SCHOOL COMMUNITY RELATIONS COORDINATOR Exam: awake
--- NOTE | 2022-04-02 11:17 | SUR.PHASEI ---
1100 Bilat foot pumps on and on pump. Pump working.
--- NOTE | 2022-04-02 11:21 | PM.OP ---
Operative Report Date of procedure: April 02, 2022 Pre-op diagnosis: Primary osteoarthritis left knee Post-op diagnosis: Primary osteoarthritis left knee Post-op findings: Severe degenerative osteoarthritic changes with loss of cartilage on the medial femoral condyle and large osteophytes Procedure done: Babatunde assisted left total knee arthroplasty Implants: The [place] total knee system with a size 5 triathlon beaded cruciate retaining femur left, a triathlon titanium tibial component size 6 beaded, a triathlon X3 tibial bearing CS insert size 6 X 11 mm and a beaded triathlon titanium asymmetric patella size 35 x 10 mm Specimens removed/disposition: Bone, disposed of Pathology: none sent Surgeon: Gabriela Borrero Tire Mounter: [facility] operating room technicians Anesthesia: MAC (With spinal and supplemental adductor block, ASA 3) Estimated blood loss (mL): 200 Tourniquet time (min): 100 (At 250 mmHg) IV fluids (mL): 1,500 Urine output (mL): 150 Complications: None Findings: Severe degenerative osteoarthritis with slight flexion contracture and varus deformity. Condition: stable Disposition: PACU (Then to floor for postoperative rehabilitation and pain management) Brief History: This is an established 66 year old male patient who presents today for left total knee arthroplasty with Babatunde assistance.. Patient states he has been having pain to the left knee for years. Patient states the majority of the pain is to the medial left knee. Patient states he had a knee scope by Dr. Valenzuela in 2017. Patient states this helped for some time however the pain is back. Patient states that the knee feels as if it will give out on him and has done so. Patient utilizes a cane for this reason. He presented to the office and after discussion, we elected to proceed with left total knee arthroplasty. Risks and complications were reviewed. Consents were signed and questions were answered. Procedure: The patient was brought to the operating theater, and after undergoing adequate spinal anesthesia supplemented with adductor canal block and MAC, ASA 3, the left lower extremity was prepped with Dura-Prep and draped in usual fashion following placement of a tourniquet high on the leg. The leg was then draped free. Following prepping and draping, the leg was exsanguinated, and the tourniquet was elevated to 250 mmHg for a total tourniquet time of 100 minutes.? Prior to elevation of the tourniquet, but following exposure of the site of surgery, a surgical pause was performed. At the time of the surgical pause, we confirmed the site and side of surgery. Additionally, we confirmed the appropriate and timely administration of preoperative antibiotics, Ancef 2 g and Transexemic acid 1 g.? The availability of equipment was confirmed, and the patient's identity was verbalized as well.? An additional transexemic acid 1 g was given at the end of the surgical procedure as well. Following the surgical pause, an incision was made centering over the patella continuing proximally and distally as necessary to allow access to the knee joint. Dissection continued through skin and soft tissues using a scalpel. Hemostasis was obtained using electrocautery. The skin incision was followed by a median parapatellar arthrotomy. The leg was extended and the patella was able to be displaced laterally.? Appropriate arrays and markers were placed in appropriate position for use of the Babatunde.? Preoperative planning had been accomplished and was discussed in detail with the Babatunde pest control service representative.? Intraoperative mapping of the femur and tibia was accomplished after the arrays were placed.? Checkpoints were also placed.? Once we had accomplished the Babatunde mapping, we began the appropriate resections for placement of the prosthesis.? The plan was for a cruciate retaining right total knee arthroplasty. Once appropriate mapping had been accomplished retraction was established using manual retraction by surgical technicians and also the Babatunde leg positioner and retractors.? The knee was evaluated.? There was significant osteoarthritic change with slight flexion contracture.? Appropriate bone resection was accomplished using the Babatunde.? The femur was sized to a size 5.? This started with the femur and subsequently tibial resection was accomplished.? Osteophytes were removed prior to this portion of the procedure.? We had performed a minimal medial release at the beginning of the procedure to allow for placement of the array.? Proximal tibia was evaluated and it was felt that appropriate size for the tibia was a size 6 which matched the preoperative planning.? A trial reduction was accomplished after osteophytes have been removed as well as the medial and lateral menisci.? We had removed the anterior cruciate ligament at the beginning of the case and preserved the posterior cruciate ligament.? Trial reduction was accomplished with a size 5 femoral cruciate retaining component and a size 6 CS tibial bearing insert which was 11 mm in thickness.? With this, we had excellent stability, full extension, and appropriate alignment.? Trial components were removed after the femur had been drilled.? Posterior release was accomplished to ensure full flexion.? Prior to removal of the tibial tray which had been pinned in position with appropriate rotation as determined by the Babatunde plan, we broached the tibia.? Subsequently, the 4 drill holes were made for the prosthetic component.? All trial components had been removed, and the wound was irrigated.? Plans were made for insertion of the prosthetic components.? Prior to this, the patella was manually prepared.? After resection of the articular surface with the jigging system, it was measured and measured a 35 mm patella.? We resected approximately 10 mm of patella and patellar height was restored with the patellar component. Once again, the wound was irrigated.? The Tritanium tibia was impacted into position.? The beaded femur was then impacted into position in a cementless fashion. The CS tibial insert was placed prior to placement of the femoral component. The patella was pressed into position with a patellar clamp.? Exparel was injected prior to placement of the components, and additional Exparel was placed in the fascial and subcutaneous tissues following placement of the components.? The knee was then copiously irrigated with betadine and saline and suctioned dry. Attention was then directed to closure. Closure was accomplished with 0 Vicryl in the fascial tissues.? This was followed by Surgiflo and vancomycin powder.? Following this, a 2-0 Monocryl was used in the subcutaneous tissues, and the skin was closed with skin kody.? Care was taken to assure an excellent subcutaneous as well as skin closure.? A sterile dressing was then placed consisting of Dermabond Prineo, OpSite, sterile soft roll including over the foot, and an Miguel wrap. The patient was returned the Recovery Room in a satisfactory condition. X-rays were obtained and reviewed there.? The patient will be discharged to the floor for postoperative rehabilitation and pain management. Related Problem List Diagnoses (1) Primary osteoarthritis of left knee:
[2022-04-02] MEDS: chlorhexidine gluconate 0.12% Btl 473 mL 30 ML MUCOUS MEM ×3 (13:15→21:57)
--- NOTE | 2022-04-02 16:04 | ANE.PACU2 ---
Inpatient post-anesthesia follow up: Airway intact: Yes Vital signs: Temperature 97.4 F Pulse Rate 94 Respiratory Rate 18 Blood Pressure 119/74 Pulse Oximetry 98 Oxygen Delivery Me thod Room Air Oxygen Flow Rate 6 Fraction of Inspir ed Oxygen Hydration adequate: Yes Nausea and vomiting: No Pain level: 1 Mental status: Baseline
[2022-04-02] MEDS: sennosides-docusate Tablet 2 TAB PO (18:32)
[2022-04-02] MEDS: calcium carbonate 500 mg Chew Tablet 1000 MG PO (18:32)
[2022-04-02] MEDS: CELEcoxib 200 mg Capsule PO (18:32)
[2022-04-02] MEDS: mupirocin oint 22 gm 1 APPLIC NASAL (18:33)
[2022-04-02] MEDS: iron polysaccharide complex 150 mg Capsule PO (18:33)
[2022-04-03] VITALS: BP 105/71; PULSE 103; TEMP 36.6; O2SAT 99
[2022-04-03 03:54] VITALS: BP 111/72; PULSE 81; RESP 16; TEMP 36.6; O2SAT 95
[2022-04-03 05:07] LABS: Basophils % 0.2 %; Hematocrit 37.2 % (42.0-52.0); Hemoglobin 12.5 g/dL (11.7-16.6); Lymphocytes # 0.6 10^3/uL (0.8-4.8); Lymphocytes % 4.8 %; Mean Corpuscular HGB Conc 33.6 g/dL (30.0-36.0); Mean Corpuscular Hemoglobin 29.6 pg (28.0-34.0); Mean Corpuscular Volume 88.2 fl (80-94); Mean Platelet Volume 9.8 fL (7.4-10.4); Monocytes # 0.7 10^3/uL (0.2-0.9); Monocytes % 5.3 %; Neutrophils # 10.95 10^3/uL (1.8-7.7); Neutrophils % 89.2 %; Nucleated Red Blood Cells % 0 %; Platelet Count 212 10^3/cmm (130-400); Red Blood Count 4.22 10^6/uL (4.1-5.3); Red Cell Distribution Width 12.2 % (12.1-15.1); White Blood Count 12.3 10^3/uL (4.0-10.0)
[2022-04-03] MEDS: CELEcoxib 200 mg Capsule PO (05:21)
[2022-04-03] MEDS: acetaminophen 1,000 MG/100 ML PIGGYBACK 400 MG IV (05:21)
[2022-04-03 05:30] LABS: Blood Urea Nitrogen 20 mg/dL (8-23); Calcium 8.6 mg/dL (8.5-10.5); Carbon Dioxide 27 mmol/L (22-29); Chloride 106 mmol/L (98-107); Glomerular Filtration Rate 96.1 mL/min (90-130); Glucose 127 mg/dL (65-115); Osmolality Calculated 290 mOsm/kg (285-295); Sodium 138 mmol/L (136-145)
[2022-04-03] MEDS: ceFAZolin 2,000 MG in sodium chloride 0.9% (plus) 50 ML 100 MG IV (06:20)
[2022-04-03 07:13] VITALS: BP 106/70; PULSE 83; RESP 18; TEMP 36.9; O2SAT 98
[2022-04-03] MEDS: cholecalciferol (vitamin D3) 1,000 unit Tablet 1000 UNIT PO (08:48)
[2022-04-03] MEDS: rivaroxaban 10 mg Tablet 20 MG PO (08:48)
[2022-04-03] MEDS: multivitamin therapeutic Tablet 1 TAB PO (08:48)
[2022-04-03] MEDS: iron polysaccharide complex 150 mg Capsule PO (08:48)
[2022-04-03] MEDS: chlorhexidine gluconate 0.12% Btl 473 mL 30 ML MUCOUS MEM (08:49)
--- NOTE | 2022-04-03 09:53 | PC.CHAP ---
Pastoral Care Encounter/Spiritual Assessment Type of Contact [x] Declined health and safety specialist visit [] Patient/Family/Request visit [] Outpatient visit [] Follow-up visit [] Physician referral [] Code/Alert [] Routine visit [] Staff referral [] Actively dying [] Patient sleeping [] Family support [] [] Out of room [] Palliative care [] [] Receiving care in room [] Pre-surgical visit [] Trauma [] Long length of stay [] ICU visit [] Other: Relational/Emotional Strength [] Patient feels connected with others/family/visitors/staff [] Distress [] Loneliness/isolation [] Abandonment Spirituality of Patient [] Person of Malaika [] Attends Muslim of their Malaika [] Believes in Prayer [] Reads Bible or Oriental Orthodox materials [x] There are Spiritual issues to be addressed Rn Emergency Interventions [] Prayer [] Active listening [] Non-anxious presence [] Spiritual/emotional support [] Crisis/trauma care [] Spiritual counseling [] Bereavement support [] Provided bereavement packet [] Provided Bible/devotional materials [] Provided toy/stuffed animal, coloring book to patient or family member [] Provided Communion [] Anointing/[place] [] Salvation [x] Completed spiritual assessment [] Other: Impact on Illness or Injury [] Angry [] Fearful [] Anxious [] Often cries [] Exhaustion [] Unable to work [] Unable to attend zoroastrianism [] Unable to walk/stand [] Unable to read [] Unable to drive [] Unable to eat/drink [] Unable to sleep [] Unable to be with family [] Patient intubated [] Other: Summary Pt strongly stated he does not want a visit with Rn Emergency Time spent with patient 1m
[2022-04-03 11:23] VITALS: BP 110/59; PULSE 75; RESP 18; TEMP 36.4; O2SAT 98
--- NOTE | 2022-04-03 12:53 | PC.NURSE ---
patient refused tums, senna and bactrim. Dr. Borrero notified
--- NOTE | 2022-04-03 14:28 | PM.DCS ---
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 cement: Status: Acute Permanent problem details: Date of procedure: April 02, 2022 Diagnosis: Primary osteoarthritis left knee Procedure done: Babatunde assisted left total knee arthroplasty Implants: The [employer] total knee system with a size 5 triathlon beaded cruciate retaining femur left, a triathlon titanium tibial component size 6 beaded, a triathlon X3 tibial bearing CS insert size 6 X 11 mm and a beaded triathlon titanium asymmetric patella size 35 x 10 mm (2) Primary osteoarthritis of left knee: Status: Acute Reason for Visit Reason for Visit: Left knee osteoarthritis Brief History: This is an established 66 year old male patient who presents today for left total knee arthroplasty with Babatunde assistance.. Patient states he has been having pain to the left knee for years. Patient states the majority of the pain is to the medial left knee. Patient states he had a knee scope by Dr. Valenzuela in 2017. Patient states this helped for some time however the pain is back. Patient states that the knee feels as if it will give out on him and has done so. Patient utilizes a cane for this reason.? He presented to the office and after discussion, we elected to proceed with left total knee arthroplasty.? Risks and complications were reviewed.? Consents were signed and questions were answered. Hospital Course Hospital Course This 66-year-old gentleman was admitted after same-day surgery. He underwent Babatunde assisted left total knee arthroplasty. Postoperatively, the patient did well. He worked with physical therapy. He was up in his room and independent. On the first postoperative day, his dressing was removed. He had minimal to no swelling. His wound was benign. He had no complaints and no evidence of DVT. Plans were made for his discharge to home. At the time of discharge, he had been using no pain medications. He noted that at home, he used gabapentin, and he felt that this did not work well with narcotics, and he wished to have no narcotics. He was also offered Celebrex, but he has meloxicam at home and prefers to continue to use the meloxicam. He will follow-up in the office with me as scheduled. Physical Exam Const: COMMON NORMALS: no acute distress, average body habitus, patient oriented x3 and alert GENERAL APPEARANCE: cooperative and comfortable ORIENTATION/CONSCIOUSNESS: Yes awake HENMT: COMMON NORMALS: normocephalic and atraumatic HEAD & SCALP: normocephalic and atraumatic Eye: GENERAL EYE: appearance normal, both eyes and all related structures Chest: COMMONS NORMALS: normal inspection of the chest Resp: COMMON NORMALS: normal respiratory effort EFFORT & INSPECTION: Yes able to speak in complete sentences and Yes symmetric chest movement Extremity: LEFT LOWER EXTREMITY: Yes knee joint (Dressing was removed. Incision was benign.) Left knee: Yes inspection (No evidence of DVT. No significant bruising. No significant swelling.), Yes palpation (Minimal to no tenderness.), Yes ROM (Able to straight leg raise.) and Yes neurovascular exam (Intact distally with no evidence of DVT.) Neuro: COMMON NORMALS: patient oriented x3 SENSORIUM/ORIENTATION: Yes alert Psych: COMMON NORMALS: mental status grossly normal APPEARANCE: Yes grossly normal ATTITUDE: Yes calm and Yes engaged ATTENTION/CONCENTRATION: Yes attention grossly intact Skin: COMMON NORMALS: no rashes or lesions noted GENERAL SKIN EXAM: no rashes or lesions noted Urinary Catheter Management: Torre: Cath Placed During This Visit: yes Reason for Continuing Indwelling Catheter: Perioperative Use in Selected Surgeries Urinary Catheter Date of Insertion: 04/02/22 Urinary Catheter Time of Insertion: 07:20 Discharge Data Studies Completed and Pending Completed Studies During Hospitalization Category Date Time Status XR knee LT 1-2V [id number] Routine Exams 04/02/22 11:01 Completed Radiology Impressions Knee X-Ray 04/02/22 11:01 Impression: Left knee arthroplasty. Laboratory Results WBC 12.3 10^3/uL (4.0-10.0) H 04/03/22 04:58 RBC 4.22 10^6/uL (4.1-5.3) 04/03/22 04:58 Hgb 12.5 g/dL (11.7-16.6) 04/03/22 04:58 Hct 37.2 % (42.0-52.0) L 04/03/22 04:58 MCV 88.2 fl (80-94) 04/03/22 04:58 MCH 29.6 pg (28.0-34.0) 04/03/22 04:58 MCHC 33.6 g/dL (30.0-36.0) 04/03/22 04:58 RDW 12.2 % (12.1-15.1) 04/03/22 04:58 Plt Count 212 10^3/cmm (130-400) 04/03/22 04:58 MPV 9.8 fL (7.4-10.4) 04/03/22 04:58 Neut % (Auto) 89.2 % 04/03/22 04:58 Lymph % (Auto) 4.8 % 04/03/22 04:58 Karnes % (Auto) 5.3 % 04/03/22 04:58 Eos % (Auto) 0.0 % 04/03/22 04:58 Baso % (Auto) 0.2 % 04/03/22 04:58 Neut # (Auto) 10.95 10^3/uL (1.8-7.7) H 04/03/22 04:58 Lymph # (Auto) 0.6 10^3/uL (0.8-4.8) L 04/03/22 04:58 Karnes # (Auto) 0.7 10^3/uL (0.2-0.9) 04/03/22 04:58 Eos # (Auto) 0.0 10^3/uL (0.0-0.8) 04/03/22 04:58 Baso # (Auto) 0.0 10^3/uL (0.0-0.1) 04/03/22 04:58 Nucleated RBC % (auto) 0 % 04/03/22 04:58 Nucleated RBCs # 0.0 /100WBC 04/03/22 04:58 Sodium 138 mmol/L (136-145) 04/03/22 04:58 Potassium 4.0 mmol/L (3.5-5.1) 04/03/22 04:58 Chloride 106 mmol/L (98-107) 04/03/22 04:58 Carbon Dioxide 27 mmol/L (22-29) 04/03/22 04:58 Anion Gap 9.0 (5-19) 04/03/22 04:58 BUN 20 mg/dL (8-23) 04/03/22 04:58 Creatinine 0.8 mg/dL (0.7-1.2) 04/03/22 04:58 GFR Calculation 96.1 mL/min (90-130) 04/03/22 04:58 Glucose 127 mg/dL (65-115) H 04/03/22 04:58 Calculated Osmolality 290 mOsm/kg (285-295) 04/03/22 04:58 Calcium 8.6 mg/dL (8.5-10.5) 04/03/22 04:58 Vitals Last Vital Signs Temp 97.6 F 04/03/22 11:23 Pulse 75 04/03/22 11:23 Resp 18 04/03/22 11:23 BP 110/59 04/03/22 11:23 Pulse Ox 98 04/03/22 11:23 O2 Del Method 04/03/22 11:23 O2 Flow Rate 6 04/02/22 10:58 Discharge Plan Discharge Patient Disposition: Home Health Service Condition: Stable Prescriptions: Continued omeprazole 40 mg capsule,delayed release(DR/EC) 40 mg PO DAILY gabapentin 300 mg capsule 300 mg PO TID 30 Days Qty: 90 3RF atorvastatin 10 mg tablet 10 mg PO DAILY meloxicam 15 mg tablet 15 mg PO DAILY furosemide 20 mg tablet 20 mg PO DAILY Qty: 90 3RF Rx Instructions: May reduce to 10mg if blood pressure is too low hydrochlorothiazide 25 mg tablet 12.5 mg PO DAILY Qty: 60 2RF Xarelto 20 mg tablet 20 mg PO DAILY Qty: 90 3RF lisinopril 2.5 mg tablet 2.5 mg PO DAILY Qty: 90 3RF metoprolol tartrate 50 mg tablet 50 mg PO BID Qty: 180 3RF Discharge Orders: Discharge Order (Routine); Ordered 04/03/22 Ordered By: Gabriela Borrero Other Ambulatory Orders: DME: Walker (Order) Location: None Selected Ordered By: Gabriela Borrero Referrals: [facility] [place] [Outside] [facility] [Outside] Gabriela Borrero MD [Physician] - 04/17/22 10:00 am Discharge Diet: Advance as tolerated, Usual diet and As Directed Discharge Activity: Increase activity as tolerated, Limit activity as instructed, Use walker/crutches as instructed and As per PT/OT instructions Patient Instructions: Knee Replacement (GEN) Activity Restrictions/Additional Instructions: Ice to left knee. You may weight-bear as tolerated. Home health to continue with physical therapy with strengthening, ambulation, and gait training. Discharge Attestations Time Spent in Discharge Care*: greater than 30 min Specific Discharge Activities: educating patient, discussing with gearcase assembler/social workers/dc planners, documenting/other paperwork and evaluating patient/reviewing data Quality Metrics Clinical Quality Measures [ No reported AMI, CVA or VTE this stay] Coding Level of Care Code Acute [facility] [place] note Diagnoses Status post total left knee replacement not using cement Z96.652 Primary osteoarthritis of left knee M17.12
[2022-04-03 14:39] VITALS: BP 110/59; PULSE 75; RESP 18; TEMP 36.4; O2SAT 98
== END 2022-04-03 14:30 | disposition home health service (06) ==
LOC: MEDSURG 11:14
PROVIDERS: Anesthesiology; Admitting Provider Specialist; PCP Family Medicine; Visit Provider Specialist
PROC: 8E0Y0CZ Robotic Assisted Procedure of Lower Extremity, Open Approach (ICD-10-PCS; CPT 27447; principal; 2022-04-02 07:00)
DX: M17.12 Unilateral primary osteoarthritis, left knee (principal); I48.91 Unspecified atrial fibrillation; I10 Essential (primary) hypertension; K21.9 Gastro-esophageal reflux disease without esophagitis; E78.5 Hyperlipidemia, unspecified; Z79.01 Long term (current) use of anticoagulants; I11.0 Hypertensive heart disease with heart failure; I50.9 Heart failure, unspecified; Z87.891 Personal history of nicotine dependence
CPT/HCPCS: 27447; 36415; 51702; 73560; 80048; 85025; 93005; 97110; 97116; 97161; 97165; C1776; C9290; G0378; J0131; J0690; J1100; J2250; J2370; J2704; J2795; J3010; J3370; J3490; J7030; J7050

== ENCOUNTER → 2022-04-17 09:53 | Outpatient (BNVA) | payer MEDICARE, SELFPAY | PROVIDERS: PCP Family Medicine; Visit Provider Nurse Practitioner Family | DX: Z96.652 Presence of left artificial knee joint (principal) | CPT/HCPCS: 73560; 73565; 99213 ==

== ENCOUNTER → 2022-05-09 14:53 | Outpatient (BNVA) | payer MEDICARE, SELFPAY | PROVIDERS: PCP Family Medicine; Visit Provider Nurse Practitioner Family | DX: Z96.652 Presence of left artificial knee joint (principal) | CPT/HCPCS: 73560; 73565; 99024 ==

== ENCOUNTER → 2022-07-02 10:14 | Outpatient (BNVA) | payer MEDICARE, SELFPAY | PROVIDERS: PCP Family Medicine; Visit Provider Surgery | DX: Z85.038 Personal history of other malignant neoplasm of large intestine (principal); Z90.49 Acquired absence of other specified parts of digestive tract | CPT/HCPCS: 99213 ==

== ENCOUNTER 2022-07-25 | Day surgery (SDC) | payer MEDICARE, SELFPAY ==
[2022-07-24 08:46] VITALS: BMI 34.4
== END 2022-07-25 23:00 | disposition home or self-care (01) ==
LOC: GILAB 08-28 09:55
PROVIDERS: PCP Family Medicine; Visit Provider Surgery
PROC: 0DJD8ZZ Inspection of Lower Intestinal Tract, Via Natural or Artificial Opening Endoscopic (ICD-10-PCS; CPT 45378; principal; 2022-07-25 17:00)
DX: Z53.8 Procedure and treatment not carried out for other reasons (principal)

== ENCOUNTER 2022-07-25 13:10 | Emergency (ER) | payer MEDICARE, SELFPAY ==
[2022-07-25] VITALS (54 sets, daily range): BP systolic 50–96; BP diastolic 37–67; PULSE 62–96; RESP 14–35; TEMP 35.3; O2SAT 90–99
--- NOTE | 2022-07-25 13:39 | CT_ITS ---
WS: [id number] CTA CHEST, abdomen and pelvis, with and without contrast. HISTORY: Short of breath and hypertension. History of colon cancer. TECHNIQUE: Noncontrast CT first performed through the chest, abdomen and pelvis. CT angiogram is perf ormed through the chest abdomen and pelvis. Sagittal and coronal reformats have been submitted. MIP imaging also reviewed. All CT scans at [facility] use at least one of these dose optimization techniques: automated exposure control; mA and/or kV adjustment per patient size (includes targeted e xams where dose is matched to clinical indication); or iterative reconstruction. Contrast: Omnipaque 350; 95 cc IV. DLP: 2124.46 mGy.cm COMPARISON: 10/19/2019. Chest CTA: Normal diameter thoracic aorta. No dissection or aneurysm. Very minimal atherosclerotic pl aque and calcification through the arch. No significant atherosclerotic plaque or intimal injury. Mild enlargement of the heart. Mild RIGHT heart enlargement with mild RIGHT heart strain. No pericard ial or pleural effusions. No pneumonia, pulmonary nodule or mass. No emphysematous changes. No endobr onchial lesions. Pulmonary artery is normal size. No filling defect centrally. No mediastinum or fadi r adenopathy. Normal great vessels. Abdomen/pelvis CTA: Normal caliber abdominal aorta with atherosclerotic changes. No dissection or ane urysm. Good opacification of the SMA and celiac axis. Normal TEJ. Normal enhancement of the renal art eries. Accessory renal artery on the RIGHT. Early arterial enhancement of the visceral organs demonstrates no abnormality. No ascites, free fluid or free air. No adenopathy. Small ventral hernia containing fat only. No GI tract obstruction. Sigmo id anastomosis is intact. The appendix is not definitely identified. No adenopathy. Negative urinary bladder. No destructive bone lesions. CT/CT ang [facility]pe [id number] IMPRESSION: 1. Mild atherosclerotic disease throughout the thoracic and abdominal aorta. N o dissection or aneurysm. 2. No ischemic changes within the GI tract. 3. Mild cardiomegaly. Mild RIGHT heart strain.
--- NOTE | 2022-07-25 13:40 | XRR_ITS ---
PROCEDURE INFORMATION: Exam: XR Chest Exam date and time: 07/25/2022 2:13 PM Age: 66 years old Clinical indication: Shortness of breath; Additional info: SOB TECHNIQUE: Imaging protocol: Radiologic exam of the chest. Views: 1 view. COMPARISON: CT chest ivania w/*[id number] 10/19/2019 10:11 AM FINDINGS: Lungs: See Heart/Mediastinum finding. Pleural spaces: Unremarkable. No pleural effusion. No pneumothorax. Heart/Mediastinum: Cardiomegaly and mild interstitial edema. Bones/joints: Unremarkable. XR/XR chest 1V portable [id number] IMPRESSION: Cardiomegaly and mild interstitial edema.
[2022-07-25] MEDS: lactated ringers 1,000 ML 999 ML IV ×3 (13:50→16:24)
[2022-07-25 13:58] LABS: Basophils % 0.4 %; Hematocrit 43.9 % (42.0-52.0); Hemoglobin 14.3 g/dL (11.7-16.6); Mean Corpuscular HGB Conc 32.6 g/dL (30.0-36.0); Nucleated Red Blood Cells % 0 %; Red Cell Distribution Width 13.2 % (12.1-15.1)
[2022-07-25] MEDS: iohexol 350 mg/mL 500 mL Btl (per mL) IV (14:02)
--- NOTE | 2022-07-25 14:07 | W.ED.GENADLT ---
HPI - General Adult General: Chief complaint: Shortness of Breath/Dyspnea Stated complaint: SOB, Low Blood Pressure, Fever, N/V Time Seen by Provider: 07/25/22 13:25 History of Present Illness: Patient with a history of A-fib on Xarelto not taking for the last 3 days due to planned colonoscopy, colon cancer status post resection with plan for annual screening colonoscopy today, HTN, thyroid nodule status post partial thyroidectomy, prior tobacco user presents to the emergency department with complaint of body aches, shortness of breath, fever, chills, nausea, vomiting x1 unknown color, and low blood pressure that started last night and got worse this morning. Patient has been prepping for his annual colonoscopy, but instead of going to the GI lab today he came to the emergency department. He states that his blood pressure was 80s over 50s at home, here in the emergency department it is 58/42 in the Left arm, unable to obtain in the right arm using automated or manual blood pressure cuff. Patient denies any chest pain, chest pressure, arm pain, jaw pain, abdominal pain. History limited due to acuity of condition. Review of Systems General: Reports: 10 or more systems reviewed and unremarkable except in HPI and below PFSH ED PFSH: Medical History Anticoagulation adequate with anticoagulant therapy Xarelto Atrial fibrillation Congestive heart failure Essential hypertension Facet syndrome, lumbar Long-term use of high-risk medication Low back pain with radiation Nonischemic cardiomyopathy Osteoarthritis of both knees Spinal stenosis, lumbar Surgical History H/O partial thyroidectomy History of bowel resection LARGE BOWEL Hx of neck surgery S/P hernia repair S/P routine circumcision S/P tonsillectomy Family History Mother Stroke Father CAD (coronary artery disease) Myocardial infarct Denies family history of Anesthesia complication Bleeding disorder Social History Smoking and tobacco status: former smoker Second hand smoke exposure: No Smoking risk assessment/counseling performed?: Yes Alcohol intake: never Desire information about alcohol rehabilitation?: No Counseling given: Yes Substance/Drug Use: never Desire information about substance/drug rehabilitation?: No Counseling given: Yes Adopted: No Caregiver/support person: No Lives independently: Yes Household members: spouse Housing: House Marital status: Number of children: 0 Highest education level completed: High School Graduate service: No Current occupational status: retired Physical Exam Const: COMMON NORMALS: patient oriented x3 and alert GENERAL APPEARANCE: cooperative, well kempt, in distress, anxious and ill appearing NUTRITIONAL APPEARANCE: obese ORIENTATION/CONSCIOUSNESS: Yes awake HENMT: COMMON NORMALS: normocephalic, atraumatic, hearing grossly normal bilaterally, external ears normal and Normal external nose present HEAD & SCALP: normocephalic and atraumatic FACE & SINUS: normal facial exam NOSE: Normal external nose present EXTERNAL EAR: Yes external ears normal MOUTH: Normal oral and palatal mucosa present THROAT: posterior oropharynx normal Eye: COMMON NORMALS: Equal, round and reactive pupils present and EOMs intact bilaterally PUPIL: Yes Equal, round and reactive pupils present Neck/C-Spine: COMMON NORMALS: supple GENERAL: Yes normal visual inspection CERVICAL SPINE: No Cervical spine tenderness and No step off deformity Chest: COMMONS NORMALS: normal inspection of the chest Resp: COMMON NORMALS: clear to auscultation bilaterally EFFORT & INSPECTION: Yes tachypneic, Yes respiratory distress and Yes labored AUSCULTATION: clear to auscultation bilaterally Cardio: COMMON NORMALS: regular rate and Peripheral pulses 2+ throughout RATE: regular rate and tachycardic (borderline tachy) RHYTHM: abnormal rhythm irregularly irregular PERIPHERAL PULSES: Peripheral pulses 2+ throughout GI: COMMON NORMALS: Soft to palpation and non-tender INSPECTION: Yes abdominal distension and Yes scar PALPATION: Yes Soft to palpation : COMMON NORMALS: Yes no CVA tenderness BLADDER/KIDNEY EXAM: Yes no CVA tenderness Back/Pelvis: COMMON NORMALS: no CVA tenderness and thoracic and lumbar spine normal to inspection THORACIC SPINE/UPPER BACK: Yes normal to inspection LUMBAR SPINE/LOWER BACK: Yes normal to inspection Extremity: COMMON NORMALS: normal to inspection and full ROM GENERAL: No clubbing, No cyanosis and Yes edema (trace to 1+ BL LE) Neuro: COMMON NORMALS: patient oriented x3, moves all extremities, no focal motor deficits and no sensory deficits noted SENSORIUM/ORIENTATION: Yes alert Psych: COMMON NORMALS: mental status grossly normal, Normal thought process present, cooperative and activity/motor behavior normal APPEARANCE: Yes well kempt ATTITUDE: Yes calm THOUGHT PROCESS: Normal thought process present Skin: COMMON NORMALS: no rashes or lesions noted GENERAL SKIN EXAM: no rashes or lesions noted Procedures Arterial Line Time Out Performed: Yes Size (Gauge): 20 Technique Used: guide wire technique Post-Procedure: line sutured into place and dry sterile dressing placed Patient Tolerated Procedure: well Complications: none Site: right and radial Central Line Placement Right Femoral: Time Out Performed: Yes Patient Placed on Monitor/Pulse Ox: Yes MD Prep: mask and gown Central Line Prep: Chlorhexidine scrub and sterile drapes applied Local Anesthetic: lidocaine 1% Amount of anesthesia used (mL): 3 Ultrasound Used for Placement: Yes Central Line Lumen Inserted: triple Post Procedure: sutured in place, good blood return, all ports aspirated, flushed, capped and sterile dressing applied Patient Tolerated Procedure: well Complications: none Procedural Sedation Indication: other (central line) Presedation Evaluation: critically ill ASA Class: IV Preparation: monitoring manager applied, pulse oximeter, supplemental O2 applied, suction/airway equipment at bedside and IV secured Midazolam: IV Midazolam dose (mg): 2 Patient Tolerated Procedure: well Complications: none Course Reevaluation(s): Reevaluation #1: Patient is receiving 2 L of LR, he has received approximately a liter thus far, we are still unable to gain a blood pressure in the right arm, blood pressures in the left arm are extremely low. Concern for acute decompensated heart failure despite lack of fluid in the lungs, will obtain stat echocardiogram. Patient's INR noted to be significantly elevated, despite the fact that he is not taking any Coumadin, is only on Xarelto which she has not been taking for 3 days due to planned colonoscopy. Concerned that this represents shock liver with sinister still undetermined underlying cause Time: 14:25 Reevaluation #2: Patient moved to critical care room, discussion with patient and regarding transfer, they prefer to go to [place], open to either [facility] or [facility]. Time: 14:35 Reevaluation #3: Radial art line placed, refer to attached procedure note, pH improved on ABG, will hold off on bicarb and recheck labs. Still waiting on bed assignment at [facility]. Helicopter will not be available due to weather, patient will have to go ground life alert. Time: 17:15 Consultations: Consultation #1: Spoke with [facility] transfer center who states they are on ICU divert. Time: 14:40 Consultation #2: Spoke with [facility] transfer center who will talk to the seo analyst and call me back Time: 14:52 Consultation #3: Spoke with ICU Dr. Mckeon at [facility], he feels that this likely represents cardiogenic shock, but agrees that this is a very odd presentation, he states that we cannot rule out septic shock as well. He request that we stop the dopamine and start Levophed, obtain a central line and arterial line to accurately titrate pressors. He request that the patient be transferred by air with low threshold for intubation prior to transfer. He also request that given the fact that we cannot rule out sepsis that we obtain blood cultures which have already been obtained and sent and cover the patient with broad-spectrum antibiotics including vancomycin, cefepime, and Flagyl. Time: 15:21 Vital Signs: Vital signs: Vital Signs Temperature 95.6 F L 07/25/22 13:15 Pulse Rate 74 07/25/22 18:27 Respiratory Rate 18 07/25/22 18:27 Blood Pressure 83/63 07/25/22 18:27 Pulse Oximetry 94 07/25/22 18:27 Oxygen Delivery Me thod BiPAP 07/25/22 18:27 Oxygen Flow Rate 3 07/25/22 14:30 Fraction of Inspir ed Oxygen 45 07/25/22 17:08 MDM - General Adult Medical Decision Making Due to concern that this critically ill patient was eminently decompensating, I requested that nursing established 2 18-gauge IVs, the patient was emergently taken to the CT scanner for CT angiogram chest abdomen pelvis to rule out aortic aneurysm or dissection, while not optimized for a PE study, we were able to visualize the pulmonary arteries and on my wet read I see no evidence of aortic aneurysm or dissection or large pulmonary embolism. Lab Data 07/25/22 15:26 07/25/22 17:15 Radiology Impressions Chest/Abdomen/Pelvis CTA 07/25/22 13:39 IMPRESSION: 1. Mild atherosclerotic disease throughout the thoracic and abdominal aorta. No dissection or aneurysm. 2. No ischemic changes within the GI tract. 3. Mild cardiomegaly. Mild RIGHT heart strain. Chest X-Ray 07/25/22 13:40 IMPRESSION: Cardiomegaly and mild interstitial edema. Laboratory Results WBC 13.5 10^3/uL (4.0-10.0) H 07/25/22 13:35 RBC 5.03 10^6/uL (4.1-5.3) 07/25/22 13:35 Hgb 14.3 g/dL (11.7-16.6) 07/25/22 13:35 Hct 43.9 % (42.0-52.0) 07/25/22 13:35 MCV 87.3 fl (80-94) 07/25/22 13:35 MCH 28.4 pg (28.0-34.0) 07/25/22 13:35 MCHC 32.6 g/dL (30.0-36.0) 07/25/22 13:35 RDW 13.2 % (12.1-15.1) 07/25/22 13:35 Plt Count 205 10^3/cmm (130-400) 07/25/22 15:26 MPV 10.6 fL (7.4-10.4) H 07/25/22 13:35 Neut % (Auto) 89.4 % 07/25/22 13:35 Lymph % (Auto) 4.1 % 07/25/22 13:35 [place] % (Auto) 5.0 % 07/25/22 13:35 Eos % (Auto) 0.4 % 07/25/22 13:35 Baso % (Auto) 0.4 % 07/25/22 13:35 Neut # (Auto) 12.08 10^3/uL (1.8-7.7) H 07/25/22 13:35 Lymph # (Auto) 0.6 10^3/uL (0.8-4.8) L 07/25/22 13:35 [place] # (Auto) 0.7 10^3/uL (0.2-0.9) 07/25/22 13:35 Eos # (Auto) 0.1 10^3/uL (0.0-0.8) 07/25/22 13:35 Baso # (Auto) 0.1 10^3/uL (0.0-0.1) 07/25/22 13:35 Nucleated RBC % (auto) 0 % 07/25/22 13:35 Nucleated RBCs # 0.0 /100WBC 07/25/22 13:35 PT 49.30 SECONDS (12.1-14.9) H 07/25/22 15:26 INR 5.11 (0.8-1.2) H* 07/25/22 15:26 APTT 41.7 SECONDS (23.9-36.7) H 07/25/22 15:26 Fibrinogen 348 mg/dL (174-498) 07/25/22 15:26 D-Dimer 1.54 ug/mIFEU (0-0.59) H 07/25/22 13:35 Specimen Type Arterial 07/25/22 16:51 Sample Site Not specified 07/25/22 16:51 ABG pH 7.44 (7.35-7.45) 07/25/22 16:51 ABG pCO2 20.7 mmHg (35-45) L 07/25/22 16:51 ABG pO2 238.0 mmHg (80.0-100.0) H 07/25/22 16:51 ABG HCO3 14.1 mmol/L (22-26) L 07/25/22 16:51 ABG O2 Saturation 99.4 07/25/22 16:51 ABG Base Excess -7.7 mmol/L (-2.0-2.0) L 07/25/22 16:51 Oscar Test Pos 07/25/22 16:51 VBG pH 7.25 (7.32-7.42) L 07/25/22 14:50 VBG pCO2 41.6 mmHg (41-51) 07/25/22 14:50 VBG pO2 43.8 mmHg (25-40) H 07/25/22 14:50 VBG HCO3 18.1 mmol/L (24-28) L 07/25/22 14:50 VBG Base Excess -8.9 mmol/L (-3.0-3.0) L 07/25/22 14:50 VBG Hematocrit 41.8 % (42-52) L 07/25/22 14:50 A-a O2 Gradient 6.3 mmHg (5-10) 07/25/22 16:51 Hematocrit 42.5 % (42-52) 07/25/22 16:51 Hgb O2 Saturation 98.3 % (95-100) 07/25/22 16:51 Carboxyhemoglobin 0.4 %THgb (0.4-20.1) 07/25/22 16:51 Methemoglobin 0.7 % (0.4-1.5) 07/25/22 16:51 Total Hemoglobin 13.9 g/dL (14-18) L 07/25/22 16:51 Sodium 133.0 mmol/L (131-143) 07/25/22 16:51 Potassium 3.4 mmol/L (3.5-5.0) L 07/25/22 16:51 Glucose 106.0 mg/dL (70-115) 07/25/22 16:51 Ionized Calcium 1.1 mmol/L (1.1-1.4) 07/25/22 16:51 O2 Delivery Device Bipap 07/25/22 16:51 FiO2 45.0 % 07/25/22 16:51 Stock House Worker ID [place] 07/25/22 16:51 Sodium 137 mmol/L (136-145) 07/25/22 17:15 Potassium 3.5 mmol/L (3.5-5.1) 07/25/22 17:15 Chloride 99 mmol/L (98-107) 07/25/22 17:15 Carbon Dioxide 19 mmol/L (22-29) L 07/25/22 17:15 Anion Gap 22.5 (5-19) H 07/25/22 17:15 BUN 28 mg/dL (8-23) H 07/25/22 17:15 Creatinine 2.4 mg/dL (0.7-1.2) H 07/25/22 17:15 GFR Calculation 27.1 mL/min (90-130) L 07/25/22 17:15 Glucose 88 mg/dL (65-115) 07/25/22 17:15 Calculated Osmolality 289 mOsm/kg (285-295) 07/25/22 17:15 Lactic Acid 9.1 mmol/L (0.5-2.2) H* 07/25/22 13:35 Lactic Acid (Sepsis) 7.9 mmol/L (0.5-2.2) H* 07/25/22 17:15 Calcium 7.7 mg/dL (8.5-10.5) L 07/25/22 17:15 Magnesium 1.3 mg/dL (1.7-2.3) L 07/25/22 13:41 Total Bilirubin 2.1 mg/dL (0.15-1.2) H 07/25/22 17:15 Direct Bilirubin 0.80 mg/dL (0.00-0.30) H 07/25/22 13:41 Indirect Bilirubin 1.10 07/25/22 13:41 AST 23 U/L (0-40) 07/25/22 17:15 ALT 15 U/L (0-41) 07/25/22 17:15 Alkaline Phosphatase 86 U/L (40-130) 07/25/22 17:15 Troponin T Baseline 33 ng/L (0-15) H 07/25/22 13:35 Troponin T 120 Minute 35.76 ng/L (0-15) H 07/25/22 15:50 Delta Troponin T 2.76 ABS# (0-10) 07/25/22 15:50 NT-Pro-B Natriuret Pep 63936 pg/mL (0-125) H 07/25/22 13:41 Total Protein 5.5 g/dL (6.6-8.7) L 07/25/22 17:15 Albumin 3.0 g/dL (3.5-5.2) L 07/25/22 17:15 Globulin 2.5 g/dL (1.3-4.6) 07/25/22 17:15 Urine Color Dark yellow (Yellow) 07/25/22 15:25 Urine Appearance Hazy (CLEAR) A 07/25/22 15:25 Urine pH 5 (5-7) 07/25/22 15:25 Ur Specific [place] 1.025 (1.005-1.030) 07/25/22 15:25 Urine Protein 1+ (Negative) H 07/25/22 15:25 Urine Glucose (UA) Trace (Normal) H 07/25/22 15:25 Urine Ketones 1+ (Negative) H 07/25/22 15:25 Urine Blood Neg (Negative) 07/25/22 15:25 Urine Nitrate Negative (Negative) 07/25/22 15:25 Urine Bilirubin 1+ (Negative) H 07/25/22 15:25 Urine Urobilinogen 1 mg/dL (Negative) H 07/25/22 15:25 Ur Leukocyte Esterase Trace (Negative) H 07/25/22 15:25 Urine RBC None /hpf (0-2) 07/25/22 15:25 Urine WBC 0-4 /hpf (0-5) H 07/25/22 15:25 Ur Squamous Epith Cells None /hpf (0-5) 07/25/22 15:25 Amorphous Sediment 2+ /hpf 07/25/22 15:25 Urine Bacteria Trace /hpf (NONE) 07/25/22 15:25 Hyaline Casts Rare /lpf 07/25/22 15:25 Hepatitis A IgM Ab Non-reactive (Nonreactive) 07/25/22 13:35 Hep Bs Antigen Non-reactive (Nonreactive) 07/25/22 13:35 Hep B Core IgM Ab Non-reactive (Nonreactive) 07/25/22 13:35 Hepatitis C Antibody Non-reactive (Nonreactive) 07/25/22 13:35 Blood Type A Positive 07/25/22 13:45 Rho(D) Type Positive 07/25/22 13:45 Antibody Screen Not Reportable 07/25/22 13:45 PEG Antibody Screen Negative 07/25/22 13:45 Critical Care Time Critical Care Time: Critical Care Time: Yes Total Critical Care Time: 155 Attestation: This case had a high probability of a clinically significant, sudden, or life threatening deterioration of this patient's condition which required my full and direct attention, intervention and personal management. Discharge Plan Discharge Patient Disposition: Xfer Short-Term Hosp Clinical Impression: Cardiogenic shock, Shock liver, JOSUE (acute kidney injury), Metabolic acidosis, Hypokalemia, Hypomagnesemia, Acidosis, lactic Condition: Critical Referrals: Taco Carpenter MD [Primary Care Provider] - Coding Level of Care Code ED Rotor Casting Machine Setup Operator for Chandra Galeano
--- NOTE | 2022-07-25 14:10 | ECG_ITS ---
[facility] Test Date: 2022-07-25 Pat Name: Helder Mccloud Department: Room: Gender: Male Chief Wharfinger: : 1955 Requested By: Sharif Marquis Order Number: [id number] Vázquez MD: Charu Mariano M.D. Measurements Intervals Dana Rate: 76 P: 0 NC: 0 QRS: 97 QRSD: 85 T: 78 QT: 366 QTc: 413 Interpretive Statements ATRIAL FIBRILLATION BORDERLINE RIGHT AXIS DEVIATION [QRS AXIS > 90] ABNORMAL RHYTHM ECG Compared to ECG 03/28/2022 10:14:58 Ventricular premature complex(es) no longer present Aberrant conduction of supraventricular beat(s) no longer present Myocardial infarct finding no longer present Electronically Signed On 07-26-2022 1:33:24 CDT by Charu Mariano M.D. [email or web address]
[2022-07-25 14:12] LABS: Partial Thromboplastin Time 42.6 SECONDS (23.9-36.7)
[2022-07-25 14:15] LABS: D Dimer 1.54 ug/mIFEU (0-0.59)
[2022-07-25 14:20] LABS: Troponin(5th) Baseline 33 ng/L (0-15)
[2022-07-25 14:31] LABS: Basophils # 0.1 10^3/uL (0.0-0.1); Eosinophils # 0.1 10^3/uL (0.0-0.8); Eosinophils % 0.4 %; Lymphocytes # 0.6 10^3/uL (0.8-4.8); Lymphocytes % 4.1 %; Mean Corpuscular Hemoglobin 28.4 pg (28.0-34.0); Mean Corpuscular Volume 87.3 fl (80-94); Mean Platelet Volume 10.6 fL (7.4-10.4); Monocytes # 0.7 10^3/uL (0.2-0.9); Neutrophils # 12.08 10^3/uL (1.8-7.7); Neutrophils % 89.4 %; Platelet Count 230 10^3/cmm (130-400); Red Blood Count 5.03 10^6/uL (4.1-5.3); White Blood Count 13.5 10^3/uL (4.0-10.0)
[2022-07-25 14:36] LABS: Slide Review Slide Review Perform
[2022-07-25 14:42] LABS: Alanine Aminotransferase 19 U/L (0-41); Albumin Level 3.9 g/dL (3.5-5.2); Alkaline Phosphatase 108 U/L (40-130); Aspartate Amino Transferase 30 U/L (0-40); Blood Urea Nitrogen 24 mg/dL (8-23); Calcium 8.6 mg/dL (8.5-10.5); Carbon Dioxide 17 mmol/L (22-29); Chloride 96 mmol/L (98-107); Globulin 2.6 g/dL (1.3-4.6); Glomerular Filtration Rate 27.1 mL/min (90-130); Glucose 122 mg/dL (65-115); Osmolality Calculated 287 mOsm/kg (285-295); Sodium 136 mmol/L (136-145); Total Protein 6.5 g/dL (6.6-8.7)
--- NOTE | 2022-07-25 14:43 | PC.NURSE ---
Pt recieved to ER [address] Marquis. RT in the room. Pt placed on BIPAP. Pt placed on continuous bedside cardiac monitoring.
[2022-07-25 14:45] LABS: Lactic Sepsis W/Reflex 9.1 mmol/L (0.5-2.2)
[2022-07-25] MEDS: potassium chloride premix 100 ML 25 MEQ IV ×2 (15:01→18:22)
[2022-07-25] MEDS: DOPamine drip 400 MG/250 ML PREMIX 19.56 MG IV (15:03)
[2022-07-25 15:08] LABS: Magnesium 1.3 mg/dL (1.7-2.3); Total Bilirubin 1.9 mg/dL (0.15-1.2)
[2022-07-25 15:12] LABS: Hepatitis A Antibody IgM Non-Reactive (Nonreactive); Hepatitis B Core IgM Non-Reactive (Nonreactive); Hepatitis B Surface Antigen Non-Reactive (Nonreactive); Hepatitis C Virus Antibody Non-Reactive (Nonreactive)
[2022-07-25 15:14] LABS: Base Excess VBG -8.9 mmol/L (-3.0-3.0); Blood Gas Sample Site Not specified; Blood Gas Sample Type Venous; HCO3 VBG 18.1 mmol/L (24-28); PCO2 VBG 41.6 mmHg (41-51); PO2 VBG 43.8 mmHg (25-40); Venous Blood Gas Hematocrit 41.8 % (42-52); pH VBG 7.25 (7.32-7.42)
[2022-07-25 15:35] LABS: Platelet Count 205 10^3/cmm (130-400)
[2022-07-25 15:43] LABS: NT Pro B Type Natriuretic Pept 19262 pg/mL (0-125)
[2022-07-25 15:47] LABS: Fibrinogen 348 mg/dL (174-498); Partial Thromboplastin Time 41.7 SECONDS (23.9-36.7)
[2022-07-25 15:47] LABS: Bilirubin Urine 1+ (Negative); Blood Urine Neg (Negative); Glucose Urine UA Trace (Normal); Ketones Urine 1+ (Negative); Leukocyte Esterase Urine Trace (Negative); Nitrate Urine Negative (Negative); Protein Urine 1+ (Negative); Specific Gravity, Urine 1.025 (1.005-1.030); Urine Appearance Hazy (CLEAR); Urine Color Dark Yellow (Yellow); Urobilinogen Urine 1 mg/dL (Negative); pH Urine 5 (5-7)
[2022-07-25 15:48] LABS: Add Urine Culture? No; Add Urine Microscopic? YES; Amorphous Sediment Urine 2+ /hpf; Bacteria Urine TRACE /hpf; Hyaline Casts Urine RARE /lpf; WBC Urine 0-4 /hpf (0-5)
[2022-07-25] MEDS: midazolam 1 mg/mL INJ 5 ML 2 MG IV (15:49)
[2022-07-25 16:03] LABS: Reflex Lactate Order REFLEX LACTIC ORDERD
[2022-07-25 16:03] LABS: INR 5.11 (0.8-1.2)
[2022-07-25] MEDS: vancomycin 2,000 MG/400 ML PIGGYBACK 200 MG IV (16:19)
--- NOTE | 2022-07-25 16:41 | PC.NURSE ---
Dr Marquis at bedside to place arterial line
[2022-07-25 16:53] LABS: Troponin 5 2HR 35.76 ng/L (0-15)
[2022-07-25 16:54] LABS: Troponin 5 2HR Delta 2.76 ABS# (0-10)
[2022-07-25 17:02] LABS: ABG PCO2 20.7 mmHg (35-45); ABG PH Result 7.44 (7.35-7.45); Alveolar-Arterial Oxygen Gradi 6.3 mmHg (5-10); Arterial Blood Gas Hematocrit 42.5 % (42-52); Base Excess ABG -7.7 mmol/L (-2.0-2.0); Blood Gas Allen Test Pos; Blood Gas Operator Identificat WALCI; Blood Gas Sample Site Not specified; Blood Gas Sample Type Arterial; Carboxyhemoglobin 0.4 %THgb (0.4-20.1); HCO3 ABG 14.1 mmol/L (22-26); HGB O2 Sat 98.3 % (95-100); Ionized Calcium Level - ABG 1.1 mmol/L (1.1-1.4); Methemoglobin 0.7 % (0.4-1.5); Oxygen Device BIPAP; Oxygen Saturation ABG 99.4; Potassium Level - ABG 3.4 mmol/L (3.5-5.0); Total Hemoglobin 13.9 g/dL (14-18)
[2022-07-25] MEDS: magnesium sulfate premix 2 GM/50 ML PIGGYBACK IV (17:36)
--- NOTE | 2022-07-25 17:47 | PC.NURSE ---
Report called to Sharif Francisco RN at [facility] for direct admit transfer to [facility] ICU.
[2022-07-25 17:58] LABS: Alanine Aminotransferase 15 U/L (0-41); Alkaline Phosphatase 86 U/L (40-130); Anion Gap 22.5 (5-19); Aspartate Amino Transferase 23 U/L (0-40); Blood Urea Nitrogen 28 mg/dL (8-23); Calcium 7.7 mg/dL (8.5-10.5); Carbon Dioxide 19 mmol/L (22-29); Chloride 99 mmol/L (98-107); Globulin 2.5 g/dL (1.3-4.6); Glomerular Filtration Rate 27.1 mL/min (90-130); Glucose 88 mg/dL (65-115); Osmolality Calculated 289 mOsm/kg (285-295); Potassium 3.5 mmol/L (3.5-5.1); Sodium 137 mmol/L (136-145); Total Bilirubin 2.1 mg/dL (0.15-1.2); Total Protein 5.5 g/dL (6.6-8.7)
[2022-07-25] MEDS: metroNIDAZOLE IV 500 MG/100 ML PREMIX 100 MG IV (17:59)
[2022-07-25 18:00] LABS: Lactic Acid level (Lactate) 7.9 mmol/L (0.5-2.2)
--- NOTE | 2022-07-25 18:03 | PC.NURSE ---
Bicarb held per verbal order from Dr Marquis at patient's bedside
--- NOTE | 2022-07-25 18:46 | PC.NURSE ---
Report to [facility] paramedics. Pt transferred to [facility] in [place], [place]
== END 2022-07-25 19:00 | disposition short-term general hospital (02) ==
PROVIDERS: Emergency Provider Emergency Medicine; PCP Family Medicine
DX: R57.0 Cardiogenic shock (principal); K72.00 Acute and subacute hepatic failure without coma; N17.9 Acute kidney failure, unspecified; E87.20 Acidosis, unspecified; E87.6 Hypokalemia; E83.42 Hypomagnesemia; I11.0 Hypertensive heart disease with heart failure; I50.9 Heart failure, unspecified; Z87.891 Personal history of nicotine dependence
CPT/HCPCS: 36415; 36556; 36620; 71045; 71275; 74174; 80051; 80053; 80074; 81001; 82247; 82248; 82330; 82803; 82805; 83605; 83735; 83880; 84484; 85025; 85049; 85378; 85384; 85610; 85730; 86850; 86900; 87040; 93005; 94660; 96365; 96366; 96367; 96375; 99291; 99292; J1265; J2250; J3372; J3475; J3480; J3490; J7060; J7120; Q9967

== ENCOUNTER → 2022-08-05 15:15 | Outpatient (BNVA) | payer MEDICARE, SELFPAY | PROVIDERS: PCP Family Medicine; Visit Provider Internal Medicine | DX: I42.8 Other cardiomyopathies (principal); I48.91 Unspecified atrial fibrillation; Z79.01 Long term (current) use of anticoagulants; I11.0 Hypertensive heart disease with heart failure; I50.9 Heart failure, unspecified; Z87.891 Personal history of nicotine dependence | CPT/HCPCS: 99204 ==

== ENCOUNTER 2022-08-08 10:19 | Outpatient (CLI) | payer MEDICARE, SELFPAY ==
[2022-08-08 15:06] LABS: Anion Gap 13.2 (5-19); Blood Urea Nitrogen 20 mg/dL (8-23); Calcium 8.8 mg/dL (8.5-10.5); Carbon Dioxide 27 mmol/L (22-29); Chloride 102 mmol/L (98-107); Glomerular Filtration Rate 96.1 mL/min (90-130); Glucose 69 mg/dL (65-115); NT Pro B Type Natriuretic Pept 2303 pg/mL (0-125); Osmolality Calculated 287 mOsm/kg (285-295); Potassium 4.2 mmol/L (3.5-5.1); Sodium 138 mmol/L (136-145)
== END 2022-08-08 10:20 | disposition home or self-care (01) ==
PROVIDERS: PCP Family Medicine; Visit Provider Internal Medicine
DX: I10 Essential (primary) hypertension (principal); I48.91 Unspecified atrial fibrillation
CPT/HCPCS: 80048; 83880

== ENCOUNTER → 2023-02-10 15:25 | Outpatient (BNVA) | payer MEDICARE, SELFPAY | PROVIDERS: PCP Family Medicine; Visit Provider Internal Medicine | DX: I42.8 Other cardiomyopathies (principal); I48.91 Unspecified atrial fibrillation; Z79.01 Long term (current) use of anticoagulants; I10 Essential (primary) hypertension | CPT/HCPCS: 99214 ==

== ENCOUNTER → 2023-08-12 14:32 | Outpatient (BNVA) | payer MEDICARE, SELFPAY | PROVIDERS: PCP Family Medicine; Visit Provider Internal Medicine | DX: I42.8 Other cardiomyopathies (principal); Z79.01 Long term (current) use of anticoagulants; I48.91 Unspecified atrial fibrillation; I10 Essential (primary) hypertension; Z87.891 Personal history of nicotine dependence | CPT/HCPCS: 99214 ==

== ENCOUNTER → 2023-09-15 14:17 | Outpatient (BNVA) | payer MEDICARE, SELFPAY | PROVIDERS: PCP Family Medicine; Visit Provider Nurse Practitioner Family | DX: D48.5 Neoplasm of uncertain behavior of skin (principal); L57.0 Actinic keratosis; L73.8 Other specified follicular disorders | CPT/HCPCS: 11102; 17000; 99203 ==

== ENCOUNTER → 2023-10-27 13:17 | Outpatient (BNVA) | payer MEDICARE, SELFPAY | PROVIDERS: PCP Family Medicine; Visit Provider Dermatology | DX: C44.519 Basal cell carcinoma of skin of other part of trunk (principal); D48.5 Neoplasm of uncertain behavior of skin; C44.329 Squamous cell carcinoma of skin of other parts of face | CPT/HCPCS: 11102; 13101; 17313; 99213 ==

== ENCOUNTER → 2023-11-12 14:45 | Outpatient (BNVA) | payer MEDICARE, SELFPAY | PROVIDERS: PCP Family Medicine; Visit Provider Dermatology | DX: Z48.817 Encounter for surgical aftercare following surgery on the skin and subcutaneous tissue (principal); T81.31XA Disruption of external operation (surgical) wound, not elsewhere classified, initial encounter; X58.XXXA Exposure to other specified factors, initial encounter | CPT/HCPCS: 99213 ==

== ENCOUNTER → 2023-12-04 12:54 | Outpatient (BNVA) | payer MEDICARE, SELFPAY | PROVIDERS: PCP Family Medicine; Visit Provider Dermatology | DX: L57.0 Actinic keratosis (principal); C44.329 Squamous cell carcinoma of skin of other parts of face; Z48.817 Encounter for surgical aftercare following surgery on the skin and subcutaneous tissue | CPT/HCPCS: 17000; 99213 ==

== ENCOUNTER → 2024-02-17 11:15 | Outpatient (BNVA) | payer MEDICARE, SELFPAY | PROVIDERS: PCP Family Medicine; Visit Provider Nurse Practitioner Family | DX: I48.0 Paroxysmal atrial fibrillation (principal); I10 Essential (primary) hypertension; I42.8 Other cardiomyopathies; Z87.891 Personal history of nicotine dependence | CPT/HCPCS: 99214 ==

== ENCOUNTER → 2024-03-15 10:57 | Outpatient (BNVA) | payer MEDICARE, SELFPAY | PROVIDERS: PCP Family Medicine; Visit Provider Surgery | DX: Z12.11 Encounter for screening for malignant neoplasm of colon (principal); Z90.49 Acquired absence of other specified parts of digestive tract; Z86.0100 Personal history of colon polyps, unspecified; Z79.01 Long term (current) use of anticoagulants; I42.8 Other cardiomyopathies | CPT/HCPCS: 99214 ==

== ENCOUNTER → 2024-03-16 10:33 | Outpatient (BNVA) | payer MEDICARE, SELFPAY | PROVIDERS: PCP Family Medicine; Visit Provider Nurse Practitioner Family | DX: C44.329 Squamous cell carcinoma of skin of other parts of face (principal); L82.1 Other seborrheic keratosis; Z08 Encounter for follow-up examination after completed treatment for malignant neoplasm; Z85.828 Personal history of other malignant neoplasm of skin; D48.5 Neoplasm of uncertain behavior of skin; L57.0 Actinic keratosis | CPT/HCPCS: 11102; 17000; 99213 ==

== ENCOUNTER → 2024-04-16 10:36 | Outpatient (BNVA) | payer MEDICARE, SELFPAY | PROVIDERS: PCP Family Medicine; Visit Provider Family Medicine | DX: Z01.818 Encounter for other preprocedural examination (principal) | CPT/HCPCS: 93005 ==

== ENCOUNTER → 2024-05-04 09:37 | Outpatient (BNVA) | payer MEDICARE, SELFPAY | PROVIDERS: PCP Family Medicine; Visit Provider Dermatology | DX: L91.8 Other hypertrophic disorders of the skin (principal); L82.1 Other seborrheic keratosis; Z08 Encounter for follow-up examination after completed treatment for malignant neoplasm; Z85.828 Personal history of other malignant neoplasm of skin; C44.329 Squamous cell carcinoma of skin of other parts of face | CPT/HCPCS: 14041; 17311; 99213 ==

== ENCOUNTER 2024-05-05 12:02 | Day surgery (SDC) | payer MEDICARE, SELFPAY ==
[2024-05-05 12:16] VITALS: BMI 37.3
[2024-05-05 12:19] VITALS: BP 124/95; PULSE 75; RESP 18; TEMP 36.1; O2SAT 98
[2024-05-05] MEDS: sodium chloride 0.9% 500 ML 15 ML IV (12:22)
--- NOTE | 2024-05-05 12:36 | ANES.PREANE2 ---
Pre-Anesthetic Assessment Height/Weight: Height 1.78 m Weight 117.934 kg Temp Pulse Resp BP Pulse Ox O2 Del Method 97 F L 75 18 124/95 98 Room Air 05/05/24 12:19 05/05/24 12:19 05/05/24 12:19 05/05/24 12:19 05/05/24 12:19 05/05/24 12:19 Operation Date: 05/05/24 12:45 Proposed Procedures p Colonoscopy(Not Applicable) - Tee Brower DO Last intake: Intake Last Liquid Date 05/04/24 Last Liquid Time 22:30 Last Solid Date 05/03/24 Last Solid Time 23:59 Social No alcohol and No tobacco Exam alert, oriented x 3, clear to auscultation bilaterally and regular rate & rhythm Airway Submandibular: within normal limits Cervical ROM: within normal limits Mallampati: Class II Dentition: full Pulmonary Shortness of Breath (chronic ) CV/HEM Atrial Fibrillation, Congestive Heart Failure and Hypertension 02/17/24: Cardiology Note The patient is a 68-year-old male presenting with a 6-month follow-up for nonischemic cardiomyopathy, essential hypertension, and atrial fibrillation. The patient has a history of dyspnea upon exertion, described as chronic. The patient reports a stable condition with no current notable symptoms. Medication includes atorvastatin 10 mg daily, metoprolol tartrate 50 mg twice daily, and Xarelto 20 mg daily. Blood pressure at home varies slightly but is approximately 124/68 mmHg. The patient denies any other symptoms or exacerbations since the last visit. None reported Hepatic None reported GI Gastroesophageal Reflux Disease Metabolic Hyperlipidemia and Thyroid Disease Musc/skel Weakness (cane use) Neuropsych None reported Anesthetic Plan ASA status: 3 Anesthesia: MAC Medications/Allergies Home Medications Medication Instructions Recorded Confirmed Last Taken Type gabapentin 300 mg capsule 300 mg PO TID 30 days #90 caps 10/14/19 05/05/24 05/04/24 Rx metoprolol tartrate 50 mg tablet 50 mg PO BID #180 tabs 12/19/21 05/05/24 05/05/24 10:00 Rx atorvastatin 10 mg tablet 10 mg PO QAM 02/18/22 05/05/24 05/04/24 History omeprazole 20 mg capsule,delayed 20 mg PO QAM 07/25/22 05/05/24 05/04/24 History release tamsulosin 0.4 mg capsule 0.4 mg PO QAM 07/25/22 04/16/24 05/04/24 History furosemide 20 mg tablet See Rx Instructions .Route 08/12/23 05/05/24 05/04/24 Rx .COMPLEX #180 tabs rivaroxaban 20 mg tablet (Xarelto) See Rx Instructions .Route 03/05/24 04/16/24 05/03/24 Rx .COMPLEX #90 tabs phentermine 15 mg capsule 15 mg PO DAILY 03/15/24 05/05/24 Unknown History potassium chloride 10 mEq 10 meq PO DAILY 05/05/24 05/05/24 05/04/24 History tablet,extended release Allergies Allergy/AdvReac Type Severity Reaction Status Date / Time No Known Allergies Allergy Verified 05/05/24 09:52 Current Medications Generic Name Dose Route Start Last Admin Trade Name Freq PRN Reason Stop Dose Admin Sodium Chloride 500 mls @ 15 mls/hr 05/05/24 12:17 05/05/24 12:22 Sodium Chloride 0.9% IV 05/06/24 12:16 15 mls/hr .Q24H PRN Administration COLONOSCOPY FLUIDS PFSH Anesthesia Medical History History of colon polyps Nonischemic cardiomyopathy Anticoagulation adequate with anticoagulant therapy Xarelto Congestive heart failure Atrial fibrillation Essential hypertension Facet syndrome, lumbar Spinal stenosis, lumbar Osteoarthritis of both knees Long-term use of high-risk medication Low back pain with radiation Surgical History H/O partial thyroidectomy S/P hernia repair Hx of neck surgery S/P routine circumcision S/P tonsillectomy History of bowel resection LARGE BOWEL Family History Mother Stroke Father CAD (coronary artery disease) Myocardial infarct Denies family history of Anesthesia complication Bleeding disorder Social History Smoking and tobacco/nicotine status: current every day tobacco/nicotine user Second hand smoke exposure: No Alcohol intake: never Substance/Drug Use: never Adopted: No Caregiver/support person: No Lives independently: Yes Household members: spouse Housing: House Marital status: Number of children: 0 Highest education level completed: High School Graduate service: No Current occupational status: retired Data Anesthesia Cardiac Studies: No Data to Display
--- NOTE | 2024-05-05 13:18 | P.HP_ITS ---
Providers/Chief Complaint 2 Primary Care Provider: Taco Carpenter MD Chief Complaint: Z12.11 History of Present Illness Helder Mccloud is a 68 year old male Review of Systems 2 General: Reports: 10 or more systems reviewed and unremarkable except in HPI and below Medications/Allergies Home Medications Medication Instructions Recorded Confirmed Last Taken Type gabapentin 300 mg capsule 300 mg PO TID 30 days #90 caps 10/14/19 05/05/24 05/04/24 Rx metoprolol tartrate 50 mg tablet 50 mg PO BID #180 tabs 12/19/21 05/05/24 05/05/24 10:00 Rx atorvastatin 10 mg tablet 10 mg PO QAM 02/18/22 05/05/24 05/04/24 History omeprazole 20 mg capsule,delayed 20 mg PO QAM 07/25/22 05/05/24 05/04/24 History release tamsulosin 0.4 mg capsule 0.4 mg PO QAM 07/25/22 04/16/24 05/04/24 History furosemide 20 mg tablet See Rx Instructions .Route 08/12/23 05/05/24 05/04/24 Rx .COMPLEX #180 tabs rivaroxaban 20 mg tablet (Xarelto) See Rx Instructions .Route 03/05/24 04/16/24 05/03/24 Rx .COMPLEX #90 tabs phentermine 15 mg capsule 15 mg PO DAILY 03/15/24 05/05/24 Unknown History potassium chloride 10 mEq 10 meq PO DAILY 05/05/24 05/05/24 05/04/24 History tablet,extended release Allergies Allergy/AdvReac Type Severity Reaction Status Date / Time No Known Allergies Allergy Verified 05/05/24 09:52 PFSH Acute 2 PFSH: Medical History History of colon polyps Nonischemic cardiomyopathy Anticoagulation adequate with anticoagulant therapy Xarelto Congestive heart failure Atrial fibrillation Essential hypertension Facet syndrome, lumbar Spinal stenosis, lumbar Osteoarthritis of both knees Long-term use of high-risk medication Low back pain with radiation Surgical History H/O partial thyroidectomy S/P hernia repair Hx of neck surgery S/P routine circumcision S/P tonsillectomy History of bowel resection LARGE BOWEL Family History Mother Stroke Father CAD (coronary artery disease) Myocardial infarct Denies family history of Anesthesia complication Bleeding disorder Social History Smoking and tobacco/nicotine status: current every day tobacco/nicotine user Second hand smoke exposure: No Alcohol intake: never Substance/Drug Use: never Adopted: No Caregiver/support person: No Lives independently: Yes Household members: spouse Housing: House Marital status: Number of children: 0 Highest education level completed: High School Graduate service: No Current occupational status: retired Vitals/I&O/Wt Last Vital Signs Temp 97 F L 05/05/24 12:19 Pulse 75 05/05/24 12:19 Resp 18 05/05/24 12:19 BP 124/95 05/05/24 12:19 Pulse Ox 98 05/05/24 12:19 O2 Del Method Room Air 05/05/24 12:19 Weight last 48 hrs Weight 260 lb Data 05/05/24 12:54 A&P Assessment and plan (1) History of colon polyps: (2) History of bowel resection: Plan Screening colonoscopy The risks and benefits of the procedure, including bleeding, infection, intestinal perforation requiring surgery, missed lesion were explained to the patient. The patient is understanding of the risks and wishes to proceed. Attestations 2 Medical Necessity Statement*: Home Coding Level of Care Code Acute Code for Chg Fwd Diagnoses History of colon polyps Z86.0100 History of bowel resection Z90.49
[2024-05-05 13:20] LABS: Alanine Aminotransferase 15 U/L (0-41); Albumin Level 3.7 g/dL (3.5-5.2); Alkaline Phosphatase 152 U/L (40-130); Anion Gap 12.3 (5-19); Aspartate Amino Transferase 21 U/L (0-40); Blood Urea Nitrogen 11 mg/dL (8-23); Calcium 8.3 mg/dL (8.5-10.5); Carbon Dioxide 28 mmol/L (22-29); Chloride 102 mmol/L (98-107); Globulin 2.9 g/dL (1.3-4.6); Glomerular Filtration Rate 83.4 mL/min (90-130); Glucose 109 mg/dL (65-115); Osmolality Calculated 286 mOsm/kg (285-295); Potassium 4.3 mmol/L (3.5-5.1); Sodium 138 mmol/L (136-145); Total Bilirubin 1.2 mg/dL (0.15-1.2); Total Protein 6.6 g/dL (6.6-8.7)
[2024-05-05 13:59] VITALS: BP 121/77; PULSE 69; RESP 18; TEMP 36.1; O2SAT 94
[2024-05-05 14:07] VITALS: BP 129/85; PULSE 71; RESP 16; O2SAT 94
--- NOTE | 2024-05-05 14:25 | ANE.PACU2 ---
Inpatient post-anesthesia follow up: Airway intact: Yes Vital signs: Temperature 97 F Pulse Rate 71 Respiratory Rate 16 Blood Pressure 129/85 Pulse Oximetry 94 Oxygen Delivery Me thod Room Air Oxygen Flow Rate Fraction of Inspir ed Oxygen Hydration adequate: Yes Nausea and vomiting: No Pain level: 1 Mental status: Baseline
== END 2024-05-05 14:27 | disposition home or self-care (01) ==
PROVIDERS: Anesthesiology; PCP Family Medicine; Visit Provider Surgery
PROC: 0DJD8ZZ Inspection of Lower Intestinal Tract, Via Natural or Artificial Opening Endoscopic (ICD-10-PCS; CPT 45378; principal; 2024-05-05 12:45)
DX: Z12.11 Encounter for screening for malignant neoplasm of colon (principal); D12.3 Benign neoplasm of transverse colon; Z86.0100 Personal history of colon polyps, unspecified; K64.8 Other hemorrhoids; I11.0 Hypertensive heart disease with heart failure; I50.9 Heart failure, unspecified; Z79.899 Other long term (current) drug therapy; I25.5 Ischemic cardiomyopathy; E78.5 Hyperlipidemia, unspecified; K21.9 Gastro-esophageal reflux disease without esophagitis; Z79.01 Long term (current) use of anticoagulants; F17.200 Nicotine dependence, unspecified, uncomplicated; Z90.49 Acquired absence of other specified parts of digestive tract; I48.91 Unspecified atrial fibrillation
CPT/HCPCS: 45385; 80053; 88305; J2704; J7040

== ENCOUNTER → 2024-05-13 11:34 | Outpatient (BNVA) | payer MEDICARE, SELFPAY | PROVIDERS: PCP Family Medicine; Visit Provider Dermatology | DX: D04.39 Carcinoma in situ of skin of other parts of face (principal) | CPT/HCPCS: 99213 ==

== ENCOUNTER → 2024-05-20 11:06 | Outpatient (BNVA) | payer MEDICARE, SELFPAY | PROVIDERS: PCP Family Medicine; Visit Provider Surgery | DX: Z09 Encounter for follow-up examination after completed treatment for conditions other than malignant neoplasm (principal); D37.4 Neoplasm of uncertain behavior of colon; K64.8 Other hemorrhoids | CPT/HCPCS: 99214 ==

== ENCOUNTER → 2024-08-17 15:16 | Outpatient (BNVA) | payer MEDICARE, SELFPAY | PROVIDERS: PCP Family Medicine; Visit Provider Internal Medicine | DX: I42.8 Other cardiomyopathies (principal); Z79.01 Long term (current) use of anticoagulants; I11.0 Hypertensive heart disease with heart failure; I50.9 Heart failure, unspecified; I48.0 Paroxysmal atrial fibrillation | CPT/HCPCS: 36415; 80048; 83880; 99214 ==

== ENCOUNTER 2024-09-17 10:05 | Outpatient (CLI) | payer MEDICARE, SELFPAY ==
[2024-09-17 11:23] LABS: Anion Gap 14.3 (5-19); Blood Urea Nitrogen 13 mg/dL (8-23); Calcium 8.7 mg/dL (8.5-10.5); Carbon Dioxide 28 mmol/L (22-29); Chloride 100 mmol/L (98-107); Glomerular Filtration Rate 73.9 mL/min (90-130); Glucose 117 mg/dL (65-115); NT Pro B Type Natriuretic Pept 782 pg/mL (0-125); Osmolality Calculated 287 mOsm/kg (285-295); Potassium 4.3 mmol/L (3.5-5.1); Sodium 138 mmol/L (136-145)
== END 2024-09-17 10:06 | disposition home or self-care (01) ==
PROVIDERS: PCP Family Medicine; Visit Provider Internal Medicine
DX: I10 Essential (primary) hypertension (principal); I48.0 Paroxysmal atrial fibrillation
CPT/HCPCS: 36415; 80048; 83880

== ENCOUNTER → 2024-10-06 10:00 | Outpatient (BNVA) | payer MEDICARE, SELFPAY | PROVIDERS: PCP Family Medicine; Visit Provider Nurse Practitioner Family | DX: L72.11 Pilar cyst (principal); L81.4 Other melanin hyperpigmentation; L57.8 Other skin changes due to chronic exposure to nonionizing radiation; X32.XXXA Exposure to sunlight, initial encounter; L82.1 Other seborrheic keratosis; L73.8 Other specified follicular disorders; Z08 Encounter for follow-up examination after completed treatment for malignant neoplasm; Z85.828 Personal history of other malignant neoplasm of skin; D48.5 Neoplasm of uncertain behavior of skin; L57.0 Actinic keratosis | CPT/HCPCS: 11102; 17000; 99213 ==

== ENCOUNTER 2024-10-11 14:51 | Outpatient (CLI) | payer MEDICARE, SELFPAY ==
--- NOTE | 2024-10-11 15:00 | USCV_ITS ---
Helder Mccloud Age: 68 Gender: M : 1955 Exam Date: 10/11/2024 15:11 Ordering Phys: Deion Gaitan M.D ([email or web address]) Technologist: GENESIS Exam Location: [facility] Indication: SoB BP: 100 / 70 HR: 62 Rhythm: Sinus Technical Quality: Adequate MEASUREMENTS (Male / Female) Normal Values 2D ECHO LV Diastolic Diameter PLAX 5.5 cm 4.2 - 5.9 / 3.9 - 5.3 cm IVS Diastolic Thickness 1.0 cm 0.6 - 1.0 / 0.6 - 0.9 cm IVS Systolic Thickness 1.7 cm LVPW Diastolic Thickness 1.1 cm 0.6 - 1.0 / 0.6 - 0.9 cm LVPW Systolic Thickness 1.3 cm LVOT Diameter 2.1 cm LV Ejection Fraction 2D Teich 58.3 % LV Ejection Fraction MOD 4C 55.8 % LV Ejection Fraction MOD 2C 58.0 % LV Ejection Fraction 2C AL 60.0 % LA Diameter 4.6 cm RA Systolic Volume 4C AL 65.5 ml RA Systolic Volume 4C MOD 60.8 ml LA Sys Volume AL 86.6 cm cubed LA Sys Volume Index AL 34.7 cm cubed/m squared Aorta at Sinotubular Diameter 3.3 cm IVC Diameter 2.1 cm M-MODE LA Ao Ratio MM 1.4 AV Cusp Separation MM 1.6 cm DOPPLER AV Peak Velocity 81.0 cm/s LVOT Peak Velocity 62.0 cm/s AV Area Cont Eq vti 2.8 cm squared AV Area Cont Eq pk 2.6 cm squared MV Peak Velocity 115.0 cm/s MV Area PHT 4.7 cm squared Mitral E to A Ratio 3.4 TV Peak Velocity 168.5 cm/s TR Peak Velocity 239.0 cm/s TR Peak Gradient 22.8 mmHg PV Peak Velocity 88.0 cm/s FINDINGS Left Ventricle Left ventricle is normal in size. LV systolic function is normal with EF of 55-60%. No regional wall motion abnormalities are seen. Right Ventricle Normal in size and function Right Atrium Dilated Left Atrium Dilated Mitral Valve Mitral valve is thickened. Trace mitral regurgitation Aortic Valve Structurally normal aortic valve. No significant stenosis or regurgitation. Tricuspid Valve Insufficient TR jet to calculate RVSP Pulmonic Valve Trace pulmonic regurgitation Pericardium Normal Aorta Normal in size IVC Not well visualized CONCLUSIONS LV systolic function is normal with EF of 55-60%. Biatrial enlargement. Trace mitral regurgitation Trace pulmonic regurgitation. Deion Gaitan MD (Electronically Signed) Final Date: 16 October 2024 21:44 S
== END 2024-10-11 14:52 | disposition home or self-care (01) ==
LOC: RAD 14:54
PROVIDERS: PCP Family Medicine; Visit Provider Internal Medicine
DX: R06.02 Shortness of breath (principal); I05.9 Rheumatic mitral valve disease, unspecified; R93.1 Abnormal findings on diagnostic imaging of heart and coronary circulation
CPT/HCPCS: 93306

== ENCOUNTER → 2024-11-03 10:07 | Outpatient (BNVA) | payer MEDICARE, SELFPAY | PROVIDERS: PCP Family Medicine; Visit Provider Nurse Practitioner Family | DX: I11.0 Hypertensive heart disease with heart failure (principal); I50.9 Heart failure, unspecified; I48.91 Unspecified atrial fibrillation; Z79.01 Long term (current) use of anticoagulants; I42.8 Other cardiomyopathies | CPT/HCPCS: 36415; 80048; 83880; 85025; 99213 ==

== ENCOUNTER 2024-12-01 16:49 | Inpatient (IN) | payer MEDICARE, SELFPAY ==
--- OUTSIDE RECORDS SUMMARY | 2024-12-01 16:55 | XMS_ITS | Encounter Summary ---
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
--- OUTSIDE RECORDS SUMMARY | 2024-12-01 16:55 | XMS_ITS | Encounter Summary ---
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
--- OUTSIDE RECORDS SUMMARY | 2024-12-01 16:55 | XMS_ITS | Clinical Summary ---
Author Organization [facility] Address [address] Attn: [place] [address] Care Team Providers Care Air Brush Operator Name Role Phone Unavailable Primary Care Provider Unavailabl e Allergies No known active allergies Medications atorvastatin 10 mg tablet Take 10 mg by mouth daily in the morning. Active furosemide 20 mg tablet Take 20 mg by mouth daily in the morning. Active gabapentin (NEURONTIN) 300 mg capsule Take 300 mg by mouth 3 times daily. Active lisinopriL (PRINIVIL) 2.5 mg tablet Take 2.5 mg by mouth daily in the morning. Active metoprolol tartrate (LOPRESSOR) 50 mg tablet Take 50 mg by mouth 2 times daily. Active omeprazole (PriLOSEC) 20 mg Capsule, Delayed Release(E.C.) Take 20 mg by mouth daily in the morning. Active tamsulosin (FLOMAX) 0.4 mg capsule Take 0.4 mg by mouth daily in the morning. Active rivaroxaban (XARELTO) 20 mg Tablet Take 20 mg by mouth daily. Active Active Problems Problem Noted Date Diagnosed Date Other shock 07/25/2022 Acute respiratory failure with hypoxia JOSUE (acute kidney injury) 07/25/2022 Lactic acidosis 07/25/2022 Cardiomyopathy 07/25/2022 AF (atrial fibrillation) 07/25/2022 Chronic anticoagulation 07/25/2022 Elevated INR 07/25/2022 Elevated brain natriuretic peptide (BNP) level 0 07/25/2022 Elevated troponin 07/25/2022 Social History Tobacco Use Types Packs/Day Years Used Date Smoking Tobacco: Former Cigarettes 1 20 0 07/27/1979 - 07/27/1999 Passive Smoke Exposure: Past Smokeless Tobacco: Never Tobacco Cessation:Counseling Given: No Alcohol Use Standard Drinks/Week Comments Never 0 (1 standard drink = 0.6 oz pur e alcohol) Feeling Safe Answer Date Recorded Are you in a relationship wi th someone who hurts you emotionally and/or physically? 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[employer] Gender Identity Not on file Sexual Orientation Not on file Last Filed Vital Signs Vital Sign Reading Time Taken Comments Blood Pressure 111/81 07/29/2022 11:45 AM CDT Pulse 89 07/29/2022 11:45 AM CDT Temperature 36.3 C (97.4 F) 07/29/2022 11:45 AM CDT Respiratory Rate 18 07/29/2022 11:4 5 AM CDT Oxygen Saturation 100% 07/29/2022 11: 45 AM CDT Inhaled Oxygen Concentration - - Weight 119.8 kg (264 lb 3.2 oz) 07/27/2022 8:00 PM CDT Height 177.8 cm (5' 10 ) 07/27/2022 8:00 PM CDT Body Mass Index 37.91 07/27/2022 8:00 PM CDT Plan of Treatment Health Maintenance Due Date Last Done Comments DTAP/TDAP/TD VACCINES (1 - Tdap) 1972 COLORECTAL SCREENING 1998 Colorectal Cancer Screening 1998 FIT-DNA Q 3 years 1998 FIT/FOBT Q 1 year 1998 Flex Sig/CT Colonography Q 5 years 1998 PNEUMOCOCCAL VACCINE 50+ YEARS (1 of 1 - PCV) 10/13/19 04 ZOSTER VACCINE (1 of 2) 10/13/2003 INFLUENZA VACCINE (#1) 2024 RSV VACCINE (60+ or ) (1 - 1-dose 75+ series) [address] [place] [address] MEDICARE PART A AND B Advance Directives For more information, please contact: [phone] * Full Code (Latest Code Status on File) Date Activated Date Inactivated Comments 07/25/2022 9:36 PM 07/29/2022 3:20 PM * Default Full Code - Needs Discussion Date Activated Date Inactivated Comments 07/25/2022 8:58 PM 07/25/2022 9:34 PM
--- OUTSIDE RECORDS SUMMARY | 2024-12-01 16:55 | XMS_ITS | Encounter Summary ---
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
--- OUTSIDE RECORDS SUMMARY | 2024-12-01 16:55 | XMS_ITS | Encounter Summary ---
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
--- OUTSIDE RECORDS SUMMARY | 2024-12-01 16:55 | XMS_ITS | Encounter Summary ---
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
--- OUTSIDE RECORDS SUMMARY | 2024-12-01 16:55 | XMS_ITS | Clinical Summary ---
Author Organization [facility] Address [address] [place] [address] Care Team Providers Care Charge Preparation Technician Name Role Phone Unavailable Primary Care Provider Unavailabl e Medications HYDROCODONE BIT/ACETAMINOPHE N (VICODIN ORAL) Take by mouth. 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
[2024-12-01 16:57] VITALS: BP 94/57; PULSE 88; RESP 18; TEMP 37; O2SAT 98
--- NOTE | 2024-12-01 17:05 | ECG_ITS ---
[employer] [facility] [facility] Test Date: 2024-12-01 Pat Name: Helder Mccloud Department: Room: Gender: Male Certified Appliance Service Technician: : 1955 Requested By: Namita Sherwood Order Number: [id number] Vázquez MD: Niels Kuo M.D. Measurements Intervals [place] Rate: 88 P: 0 IA: 0 QRS: 83 QRSD: 146 T: 42 QT: 399 QTc: 483 Interpretive Statements ATRIAL FIBRILLATION RIGHT BUNDLE BRANCH BLOCK [120+ ms QRS DURATION, UPRIGHT V1, 40+ ms S IN I/aVL/V4/V5/V6] Compared to ECG 04/16/2024 10:37:33 No significant changes Electronically Signed On 12-01-2024 22:15:48 CDT by Niels Kuo M.D. [id number]
--- NOTE | 2024-12-01 17:58 | XRR_ITS ---
PROCEDURE INFORMATION: Exam: XR Chest Exam date and time: 12/01/2024 6:17 PM Age: 69 years old Clinical indication: Shortness of breath TECHNIQUE: Imaging protocol: Radiologic exam of the chest. Views: 1 view. COMPARISON: CR (CHEST, ) 07/25/2022 2:13 PM FINDINGS: Lungs: Unremarkable. No consolidation. Pleural spaces: Unremarkable. No pleural effusion. No pneumothorax. Heart/Mediastinum: Unremarkable. No cardiomegaly. Bones/joints: Unremarkable. Postsurgical clips overlying the right lower neck. XR/XR chest 1V portable [id number] IMPRESSION: No acute findings.
--- NOTE | 2024-12-01 17:59 | ED_ITS ---
HPI - Extremity Problem 2 General: Chief complaint: Extremity Injury, Lower Stated complaint: legs swollen Time Seen by Provider: 12/01/24 17:54 History of Present Illness: 69-year-old man with a history of nonisc hemic cardiomyopathy, chronic anticoagulation on Xarelto, atrial fibrillation, congestive heart failure, hypertension, obesity who presents to the emergency room from clinic with concerns for lower extremity swelling and reports of a fever there. He says he has developed quite a bit of swelling in his legs over the last couple of days and had increased his Lasix to 3 pills a day. He has now developed pain and redness in his shins bilaterally. He denies any chest pain. No recent increased work of breathing or cough. Related Data Home Medications ?Medication ?Instructions ?Recorded ?Confirmed atorvastatin 10 mg tablet 10 mg PO QAM 02/18/22 omeprazole 20 mg capsule,delayed 20 mg PO QAM 07/25/22 11/03/24 release tamsulosin 0.4 mg capsule 0.4 mg PO QAM 07/25/2211/03 phentermine 15 mg capsule 15 mg PO DAILY 03/15/2410/07 Previous Rx's ?Medication ?Instructions ?Recorded gabapentin 300 mg capsule 300 mg PO TID 30 days #90 ca ps 10/14/19 metoprolol tartrate 50 mg tablet 50 mg PO BID #180 tab s 12/19/21 rivaroxaban 20 mg tablet (Xarelto) See Rx Instructions .Route 03/05/24 Held on 05/05/24. .COMPLEX #90 tabs Instructions: Resume on 05/07/24. potassium chloride 10 mEq See Rx Instructions .Route 0 09/21/24 tablet,extended release .COMPLEX #90 tabs furosemide 20 mg tablet See Rx Instructions .Route 0 10/12/24 .COMPLEX #180 tabs Allergies Allergy/AdvReac Type Severity Reaction Status Date / Time No Known Allergies Allergy Verified 11/03/24 10:17 Review of Systems 2 Narrative: Constitutional symptoms: Negative except as documented in HPI. Skin symptoms: Negative except as documented in HPI. Eye symptoms: Negative except as documented in HPI. ENMT symptoms: Negative except as documented in HPI. Respiratory symptoms: Negative except as documented in HPI. Cardiovascular symptoms: Negative except as documented in HPI. Gastrointestinal symptoms: Negative except as documented in HPI. Genitourinary symptoms: Negative except as documented in HPI. Musculoskeletal symptoms: Negative except as documented in HPI. Neurologic symptoms: Negative except as documented in HPI. Psychiatric symptoms: Negative except as documented in HPI. Endocrine symptoms: Negative except as documented in HPI. PFS ED 2 PFSH: Medical History (Updated 12/01/24 @ 20:57 by Namita Lopez MD) Tubular adenoma of colon History of colon polyps Nonischemic cardiomyopathy Anticoagulation adequate with anticoagulant therapy Xarelto Congestive heart failure Atrial fibrillation Essential hypertension Facet syndrome, lumbar Spinal stenosis, lumbar Osteoarthritis of both knees Long-term use of high-risk medication Low back pain with radiation Surgical History History of colonoscopy H/O partial thyroidectomy S/P hernia repair Hx of neck surgery S/P routine circumcision S/P tonsillectomy History of bowel resection LARGE BOWEL Family History Mother Stroke Father CAD (coronary artery disease) Myocardial infarct Denies family history of Anesthesia complication Bleeding disorder Social History Smoking and tobacco/nicotine status: never used tobacco/nicotine Second hand smoke exposure: No Alcohol intake: never Substance/Drug Use: never Adopted: No Caregiver/support person: No Lives independently: Yes Household members: spouse Housing: House Marital status: Number of children: 0 Highest education level completed: High School Graduate service: No Current occupational status: retired Physical Exam 2 Narrative: EXAM NARRATIVE: General: Alert, no acute distress. Skin: Warm, dry. Head: Normocephalic, atraumatic. Neck: Supple, trachea midline. Eye: Extraocular movements are intact. Ears, nose, mouth and throat: mucosa moist. Cardiovascular: Regular, Normal peripheral perfusion. 2-3+ tibial edema. Left lower extremity hurtado is red edematous and appears infected. Respiratory: Lungs are clear to auscultation, respirations are non-labored, breath sounds are equal, Symmetrical chest wall expansion. Gastrointestinal: Soft, Nontender, Non distended Musculoskeletal: Normal ROM, no deformity. Neurological: Alert and oriented, No focal neurological deficit observed. Psychiatric: Cooperative, appropriate mood & affect. Course 2 Vital Signs: Vital signs: Vital Signs Temperature 98.6 F 12/01/24 16:57 Pulse Rate 91 12/01/24 18:14 Respiratory Rate 20 H 12/01/24 18:14 Blood Pressure 123/92 12/01/24 20:12 Pulse Oximetry 99 12/01/24 20:12 Oxygen Delivery Me thod Room Air 12/01/24 20:12 MDM - Extremity (Nontraumatic) Medical Decision Making Medical decision making: Differential diagnosis including but not limited to and based on the above HPI, review of systems and physical exam: for patient with edema: Congestive heart failure. Kidney failure. DVT / Pulmonary embolism. Protein malnutrition. Cirrhosis. Orders placed to evaluate differential diagnosis based on the above differential, HPI and physical exam Chest x-ray: No acute process. No infiltrate. No pneumothorax. This was reviewed and interpreted by myself the emergency room physician. I also reviewed the radiology report. Lab Review: Laboratory results were reviewed and interpreted by myself the emergency room physician. Leukocytosis. No anemia. No renal failure. Urinalysis does not appear infected. Inflammatory markers are elevated also proBNP is a bit elevated. Serial cardiac markers are not elevated. CRP is elevated at 38. ESR is mildly elevated at 9. I reviewed the patient's medical record. 69-year-old man with a history of nonischemic cardiomyopathy, chronic anticoagulation on Xarelto, atrial fibrillation, congestive heart failure, hypertension, obesity Reexamination: Patient remained stable. No increased work of breathing. No altered mental status. No focal motor deficits. Pressures have been a bit low. says he always does run low and looking back his pressures rarely are above 100 systolic. Consultation: I spoke with Dr. Frank who is on-call for the hospitalist service who agrees to admission. Assessment and plan: Lower extremity cellulitis Congestive heart failure ?Zyvox and cefepime for cellulitis of the legs. Patient has had fevers. White count is up. No other infectious source. ?Holding on fluids and on diuresis. Pressures in the 90s at times. And he has an obvious infection but does not seem to be septic at this point. But also with low blood pressures I do want to give Lasix. So no fluids and no Lasix. -I discussed the patient with the hospitalist on-call who is admitting the patient. - Discussed findings and plan with patient. Answered any questions. - All laboratory values were reviewed and interpreted personally by myself, the ER physician - All imaging was reviewed and interpreted personally by myself, the ER physician. - Evaluation and treatment of this problem were appropriate in the emergency setting Lab Data 12/01/24 18:06 12/01/24 18:06 Radiology Impressions Chest X-Ray 12/01/24 17:58 IMPRESSION: No acute findings. Laboratory Results WBC 13.91 10^3/uL (3.29-11.43) H 12/01/24 18:06 RBC 4.46 10^6/uL (3.85-5.65) 12/01/24 18:06 Hgb 13.40 g/dL (11.27-16.99) 12/01/24 18:06 Hct 39.4 % (37-53) 12/01/24 18:06 MCV 88.3 fl (82-101) 12/01/24 18:06 MCH 30.0 pg (27-33) 12/01/24 18:06 MCHC 34.0 g/dL (30-55) 12/01/24 18:06 RDW 13.3 % (12.1-15.1) 12/01/24 18:06 Plt Count 214 10^3/cmm (157-399) 12/01/24 18:06 MPV 10.1 fL (7.4-10.4) 12/01/24 18:06 Neut % (Auto) 88.2 % 12/01/24 18:06 Lymph % (Auto) 5.0 % 12/01/24 18:06 Smith % (Auto) 6.0 % 12/01/24 18:06 Eos % (Auto) 0.1 % 12/01/24 18:06 Baso % (Auto) 0.3 % 12/01/24 18:06 Neut # (Auto) 12.29 10^3/uL (1.8-7.7) H 12/01/24 18:06 Lymph # (Auto) 0.7 10^3/uL (0.8-4.8) L 12/01/24 18:06 Smith # (Auto) 0.8 10^3/uL (0.2-0.9) 12/01/24 18:06 Eos # (Auto) 0.0 10^3/uL (0.0-0.8) 12/01/24 18:06 Baso # (Auto) 0.0 10^3/uL (0.0-0.1) 12/01/24 18:06 Nucleated RBC % (auto) 0 % 12/01/24 18:06 Nucleated RBCs # 0.0 /100WBC 12/01/24 18:06 ESR 9 mm/hr (0-10) 12/01/24 18:06 Sodium 135 mmol/L (136-145) L 12/01/24 18:06 Potassium 3.5 mmol/L (3.5-5.1) 12/01/24 18:06 Chloride 99 mmol/L (98-107) 12/01/24 18:06 Carbon Dioxide 28 mmol/L (22-29) 12/01/24 18:06 Anion Gap 11.5 (5-19) 12/01/24 18:06 BUN 13 mg/dL (8-23) 12/01/24 18:06 Creatinine 0.9 mg/dL (0.7-1.2) 12/01/24 18:06 GFR Calculation Not Reportable 12/01/24 18:06 Glucose 102 mg/dL (65-115) 12/01/24 18:06 Calculated Osmolality 280 mOsm/kg (285-295) L 12/01/24 18:06 Lactic Acid 1.4 mmol/L (0.5-2.2) 12/01/24 18:06 Calcium 8.5 mg/dL (8.5-10.5) 12/01/24 18:06 Total Bilirubin 2.2 mg/dL (0.15-1.2) H 12/01/24 18:06 AST 39 U/L (0-40) 12/01/24 18:06 ALT 27 U/L (0-41) 12/01/24 18:06 Alkaline Phosphatase 195 U/L (40-130) H 12/01/24 18:06 Troponin T Baseline 10 ng/L (0-15) 12/01/24 18:06 Troponin T 120 Minute 15.30 ng/L (0-15) H 12/01/24 19:53 Delta Troponin T 5.30 ABS# (0-10) 12/01/24 19:53 C-Reactive Protein 37.8 mg/L (0.0-4.9) H 12/01/24 18:06 NT-Pro-B Natriuret Pep 2762 pg/mL (0-125) H 12/01/24 18:06 Total Protein 6.3 g/dL (6.6-8.7) L 12/01/24 18:06 Albumin 3.8 g/dL (3.5-5.2) 12/01/24 18:06 Globulin 2.5 g/dL (1.3-4.6) 12/01/24 18:06 Urine Color [place] (Yellow) A 12/01/24 18:35 Urine Appearance Clear (CLEAR) 12/01/24 18:35 Urine pH 5.5 (5-7) 12/01/24 18:35 Ur Specific Ross 1.019 (1.005-1.030) 12/01/24 18:35 Urine Protein Trace (Negative) A 12/01/24 18:35 Urine Glucose (UA) Negative (Normal) 12/01/24 18:35 Urine Ketones Trace (Negative) 12/01/24 18:35 Urine Blood Negative (Negative) 12/01/24 18:35 Urine Nitrate Negative (Negative) 12/01/24 18:35 Urine Bilirubin Negative (Negative) 12/01/24 18:35 Urine Urobilinogen 1.0 mg/dL (Negative) 12/01/24 18:35 Ur Leukocyte Esterase Trace (Negative) A 12/01/24 18:35 Urine RBC 0-2 /hpf (0-2) 12/01/24 18:35 Urine WBC 0-5 /hpf (0-5) 12/01/24 18:35 Ur Squamous Epith Cells 0-5 /hpf (0-5) 12/01/24 18:35 Amorphous Sediment Not Reportable 12/01/24 18:35 Urine Bacteria None seen /hpf (NONE) 12/01/24 18:35 Hyaline Casts 0.40 /lpf 12/01/24 18:35 All radiology interpretation(s) finalized by discharge Discharge Plan Discharge Patient Disposition: Admitted As Inpatient Clinical Impression: Cellulitis of lower leg Condition: Stable Coding Level of Care Code ED Side Seam Envelope Machine Operator for Chandra Galeano
[2024-12-01 18:14] VITALS: BP 123/74; PULSE 91; RESP 20; O2SAT 92
[2024-12-01 18:40] LABS: Hematocrit 39.4 % (37-53); Hemoglobin 13.40 g/dL (11.27-16.99); Mean Corpuscular HGB Conc 34.0 g/dL (30-55); Mean Corpuscular Hemoglobin 30.0 pg (27-33); Mean Corpuscular Volume 88.3 fl (82-101); Nucleated Red Blood Cells % 0 %; Platelet Count 214 10^3/cmm (157-399); Red Blood Count 4.46 10^6/uL (3.85-5.65); White Blood Count 13.91 10^3/uL (3.29-11.43)
[2024-12-01 18:46] LABS: Troponin(5th) Baseline 10 ng/L (0-15)
[2024-12-01 18:49] LABS: Lactic Sepsis W/Reflex 1.4 mmol/L (0.5-2.2)
[2024-12-01 18:58] LABS: Alanine Aminotransferase 27 U/L (0-41); Albumin Level 3.8 g/dL (3.5-5.2); Alkaline Phosphatase 195 U/L (40-130); Anion Gap 11.5 (5-19); Aspartate Amino Transferase 39 U/L (0-40); Blood Urea Nitrogen 13 mg/dL (8-23); Calcium 8.5 mg/dL (8.5-10.5); Carbon Dioxide 28 mmol/L (22-29); Chloride 99 mmol/L (98-107); Creatinine Clr Calc Pharmacy 96.8700; Globulin 2.5 g/dL (1.3-4.6); Glucose 102 mg/dL (65-115); NT Pro B Type Natriuretic Pept 2762 pg/mL (0-125); Osmolality Calculated 280 mOsm/kg (285-295); Potassium 3.5 mmol/L (3.5-5.1); Sodium 135 mmol/L (136-145); Total Protein 6.3 g/dL (6.6-8.7)
[2024-12-01 19:34] LABS: Glucose Urine UA Negative (Normal); Nitrate Urine Negative (Negative); Specific Gravity, Urine 1.019 (1.005-1.030)
--- NOTE | 2024-12-01 19:58 | ECG_ITS ---
[facility] Date: 2024-[facility]01 Pat Name: Helder Mccloud Department: Room: Gender: Male Wire Cutter: : 1955 Requested By: Namita Sherwood Order Number: [id number] Kathie MD: Niels Kuo M.D. Measurements Intervals [place] Rate: 87 P: 0 SC: 0 QRS: 77 QRSD: 150 T: 38 QT: 395 QTc: 478 Interpretive Statements ATRIAL FIBRILLATION WITH ABERRANT CONDUCTION OR VENTRICULAR PREMATURE COMPLEXES RIGHT BUNDLE BRANCH BLOCK [120+ ms QRS DURATION, UPRIGHT V1, 40+ ms S IN I/aVL/V4/V5/V6] Compared to ECG 12/01/2024 17:05:14 Ventricular premature complex now present Electronically Signed On 12-01-2024 22:34:04 CDT by Niels Kuo M.D. [email or web address]
[2024-12-01 20:12] VITALS: BP 123/92; O2SAT 99
[2024-12-01 20:27] LABS: Troponin 5 2HR 15.30 ng/L (0-15); Troponin 5 2HR Delta 5.30 ABS# (0-10)
[2024-12-01] MEDS: linezolid premix 600 MG/300 ML PREMIX 300 MG IV (20:47)
[2024-12-01] MEDS: cefepime 2,000 mg SDV 2000 MG IVP (20:47)
[2024-12-01 22:55] VITALS: BMI 37.3
--- NOTE | 2024-12-01 23:23 | PM.HP ---
Providers/Chief Complaint Admitting Physician: Deanna Frank MD--seen and evaluated before 12 midnight Primary Care Provider: Taco Carpenter MD Chief Complaint: legs swollen History of Present Illness Helder Mccloud is a 69 year old male with medical history significant for high blood pressure, hypercholesterolemia, neuropathy of the lower extremities, presented today with left lower extremity swelling, redness, tender to touch and painful. Patient presents to have this evaluation and care. Patient received Zyvox IV and cefepime IV in the emergency room. Patient seen and evaluated here in the emergency room. 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 Patient also claimed to be with neuropathy and cannot leave with that his gabapentin. I have discontinued the Zyvox and placed patient on oral Bactrim along with IV cefepime to cover for anaerobic send gram-negative's such as Pseudomonas. I am also getting Doppler ultrasound of the bilateral lower extremities but specifically for the left to rule out DVT because of much swelling. Review of Systems Narrative: System review upon 10 organ reviewed where noted to be significant for musculoskeletal and subcutaneous underneath. Otherwise system review were unremarkable Medications/Allergies Home Medications ?Medication ?Instructions ?Recorded ?Confirmed ?Last Taken ?Type gabapentin 300 mg capsule 300 mg PO TID 30 days #90 caps 10/14/19 11/03/24 05/04/24 Rx metoprolol tartrate 50 mg tablet 50 mg PO BID #180 tabs 12/19/21 11/03/24 05/05/24 10:00 Rx atorvastatin 10 mg tablet 10 mg PO QAM 02/18/22 11/03/24 05/04/24 History omeprazole 20 mg capsule,delayed 20 mg PO QAM 07/25/22 11/03/24 05/04/24 History release tamsulosin 0.4 mg capsule 0.4 mg PO QAM 07/25/22 11/03/24 05/04/24 History rivaroxaban 20 mg tablet (Xarelto) See Rx Instructions .Route 03/05/24 11/03/24 05/03/24 Rx Held on 05/05/24. .COMPLEX #90 tabs Instructions: Resume on 05/07/24. phentermine 15 mg capsule 15 mg PO DAILY 03/15/24 11/03/24 Unknown History potassium chloride 10 mEq See Rx Instructions .Route 09/21/24 11/03/24 Unknown Rx tablet,extended release .COMPLEX #90 tabs furosemide 20 mg tablet See Rx Instructions .Route 10/12/24 11/03/24 Unknown Rx .COMPLEX #180 tabs Allergies Allergy/AdvReac Type Severity Reaction Status Date / Time No Known Allergies Allergy Verified 11/03/24 10:17 PFSH Acute PFSH: Medical History Tubular adenoma of colon History of colon polyps Nonischemic cardiomyopathy Anticoagulation adequate with anticoagulant therapy Xarelto Congestive heart failure Atrial fibrillation Essential hypertension Facet syndrome, lumbar Spinal stenosis, lumbar Osteoarthritis of both knees Long-term use of high-risk medication Low back pain with radiation Surgical History History of colonoscopy H/O partial thyroidectomy S/P hernia repair Hx of neck surgery S/P routine circumcision S/P tonsillectomy History of bowel resection LARGE BOWEL Family History Mother Stroke Father CAD (coronary artery disease) Myocardial infarct Denies family history of Anesthesia complication Bleeding disorder Social History Smoking and tobacco/nicotine status: never used tobacco/nicotine Second hand smoke exposure: No Alcohol intake: never Substance/Drug Use: never Adopted: No Caregiver/support person: No Lives independently: Yes Household members: spouse Housing: House Marital status: Number of children: 0 Highest education level completed: High School Graduate service: No Current occupational status: retired Vitals/I&O/Wt Last Vital Signs Temp 98.6 F 12/01/24 16:57 Pulse 91 12/01/24 18:14 Resp 20 H 12/01/24 18:14 BP 123/92 12/01/24 20:12 Pulse Ox 99 12/01/24 20:12 O2 Del Method Room Air 12/01/24 23:06 12/01/24 12/01/24 12/02/24 14:59 22:59 06:59 Intake Total 300 / 300 Balance 300 / 300 Weight last 48 hrs Weight 117.934 kg Weight 117.934 kg Physical Exam Narrative: Generally patient looks well but complaining of the left lower extremity swelling and pain. HEENT normocephalic/atraumatic neck neck is supple cardiovascular heart rate is regular lungs clear abdomen soft nontender nondistended unremarkable extremities significant for left lower extremity swelling, warm to touch and tender to touch Data 12/01/24 18:06 12/01/24 18:06 Micro: Microbiology 12/01/24 18:08 Blood Culture - Preliminary Blood SPECIMEN COLLECTED 12/01/24 18:06 Blood Culture - Preliminary Blood SPECIMEN COLLECTED A&P Assessment and plan 1. Cellulitis of lower le. Lower extremity edema: 3. Fever: 4. Peripheral neuropathy: Plan: Fever - Fever is secondary to left lower extremity cellulitis -Admit to general medical floor for IV antibiotics for left lower extremity cellulitis - Obtain Doppler ultrasound of the left lower extremity rule out DVT for leg swelling - Continue to treat and monitor Left lower extremity cellulitis with swelling - IV antibiotics initiated with cefepime and oral Bactrim - Gentle hydration PDMP PDMP Reviewed: Last Reviewed 12/02/24 00:52 by Deanna Frank MD Attestations Medical Necessity Statement*: #1 Morbidly obese male with left lower extremity swelling, pain and tenderness warm to touch significant for cellulitis, will need at least 2 midnights stay for optimization of care. Patient meets inpatient criteria #2 Left lower extremity swelling rule out DVT -Patient is on anticoagulant, RIVAROXADAN - Doppler ultrasound ordered and if this study shows DVT patient anticoagulant will need to be changed.\ #3 GI and DVT prophylaxis in place Coding Level of Care Code 03738 Diagnoses Cellulitis of lower leg L03.119 Lower extremity edema R60.0 Fever R50.9 Peripheral neuropathy G62.9 Time Spent (min) 60
[2024-12-01 23:49] VITALS: PULSE 89
[2024-12-01 23:51] VITALS: BP 100/54; PULSE 89; RESP 17; TEMP 36.9; O2SAT 97
--- NOTE | 2024-12-01 23:58 | ECG_ITS ---
[facility] Pat Name: Helder Mccloud Department: Room: 277 Gender: Male Lip Cutter: : 1955 Requested By: Namita Sherwood Order Number: [id number] Vázquez MD: Deion Gaitan M.D. Measurements Intervals [place] Rate: 90 P: 0 PA: 0 QRS: 85 QRSD: 143 T: 59 QT: 386 QTc: 473 Interpretive Statements ATRIAL FIBRILLATION RIGHT BUNDLE BRANCH BLOCK [120+ ms QRS DURATION, UPRIGHT V1, 40+ ms S IN I/aVL/V4/V5/V6] Compared to ECG 12/01/2024 20:17:20 Ventricular premature complex(es) no longer present Aberrant conduction of supraventricular beat(s) no longer present Electronically Signed On 12-03-2024 22:56:05 CDT by Deion Gaitan M.D. [email or web address]
[2024-12-02] VITALS (7 sets, daily range): BP systolic 97–148; BP diastolic 64–72; PULSE 76–106; RESP 15–18; TEMP 36.8–37.1; O2SAT 94–96
[2024-12-02 00:29] LABS: Troponin 5 6HR 15.30 ng/L (0-15); Troponin 5 6HR Delta 5.30 ng/L (0-12)
[2024-12-02] MEDS: sulfamethoxazole-trimeth DS 160-800 mg Tablet 1 TAB PO ×2 (00:43→08:37)
[2024-12-02] MEDS: heparin 5,000 unit/mL INJ 1 mL 5000 UNIT SUBCUT (00:43)
[2024-12-02] MEDS: cefepime 2,000 mg SDV 2000 MG IVP ×3 (05:59→20:49)
--- NOTE | 2024-12-02 07:06 | USCV_ITS ---
RogersHelder sanchez Age: 69 Gender: M : 1955 Exam Date: 12/02/2024 07:43 Ordering Phys: Deanna Frank MD Technologist: GENESIS [place] [facility] [place] LT Calf Pain HISTORY: Lower extremity pain. PROCEDURES: Venous duplex imaging was performed in only the left lower extremity. The following venous structures were evaluated: common femoral vein, profunda vein, proximal portion of the greater saphenous vein, superficial femoral vein, and the popliteal vein. In addition, the posterior tibial and peroneal trunk were evaluated. Serial compression, augmentation maneuvers, and spectral Doppler flow evaluation were performed. FINDINGS: No evidence of DVT seen in any vessel visualized at this time. CONCLUSIONS No evidence of left lower extremity DVT. Rocco Delgado MD (Electronically Signed) Final Date: 02 December 2024 08:44 S
--- NOTE | 2024-12-02 09:28 | PC.NURSE ---
Pt still unable to void. Bladder scan shows 470ml residual. Mariann advised.
--- NOTE | 2024-12-02 12:08 | P.PN_ITS ---
Subjective 2 Subjective: Patient states that he does have trouble being at home at times however when he takes the medicine he is usually okay. Does have urinary tension today. Retaining for 490 cc of urine. Nursing with placing Torer catheter shortly. Patient requesting his home medication as they were not restarted upon admission. Vitals/I&O/Wt Last Vital Signs Temp 98.6 F 12/02/24 11:57 Pulse 76 12/02/24 11:57 Resp 17 12/02/24 11:57 BP 99/64 12/02/24 11:57 Pulse Ox 95 12/02/24 11:57 O2 Del Method Room Air 12/02/24 00:00 12/01/24 12/02/24 12/02/24 22:59 06:59 14:59 Intake Total 300 / 300 0 / 300 540 / 540 Balance 300 / 300 0 / 300 540 / 540 Weight last 48 hrs Weight 124.874 kg Weight 117.934 kg Weight 117.934 kg Physical Exam 2 Narrative: General: Alert oriented x3, patient seen sitting up in bed appearing comfortable at this time. HEENT: Normocephalic, atraumatic, EOMI, Cardio: Regular rate rhythm, normal S1-S2, Respiratory: Clear to auscultation bilaterally no wheezes no rhonchi GI: Abdomen soft, nontender,bowel sounds + Extremities: Left lower leg warm to touch, mild tenderness, redness extending all the way up close to the knee. We will cheryl with skin marker today. Urinary Catheter Management: Coude: Cath Placed During This Visit: yes Urinary Catheter Date of Insertion: 12/02/24 Urinary Catheter Time of Insertion: 11:02 Data 12/01/24 18:06 12/01/24 18:06 Micro: Microbiology 12/01/24 18:08 Blood Culture - Preliminary Blood SPECIMEN COLLECTED 12/01/24 18:06 Blood Culture - Preliminary Blood SPECIMEN COLLECTED A&P Assessment and plan 1. Cellulitis of lower le. Lower extremity edema: 3. Fever: 4. Peripheral neuropathy: Plan: Fever - Fever is secondary to left lower extremity cellulitis -Admit to general medical floor for IV antibiotics for left lower extremity cellulitis - Obtain Doppler ultrasound of the left lower extremity rule out DVT for leg swelling - Continue to treat and monitor Left lower extremity cellulitis with swelling - IV antibiotics initiated with cefepime and oral Bactrim - Gentle hydration 12/02/2024 #Nonischemic cardiomyopathy #Hypertension #Atrial fibrillation #Chronic anticoagulation #Heart failure #Urinary retention #Cellulitis White count 13,000 on admission. No morning labs available today. Check CBC CMP today. Await results. BNP 2700. Patient on Lasix 20 at home with instructions to hold if blood pressure low. Blood pressure 99/64 this morning. Does have lower extremity edema. Venous Dopplers negative for DVT. I will continue atorvastatin, gabapentin, potassium, Xarelto. Urinary retention: Will place a Torre catheter. Patient states he has a large prostate. He is on tamsulosin at home. I will continue at this time. Watch for soft blood pressures Reduce metoprolol to 12.[address] abdomen pelvis dvt ppx: xarelto PDMP PDMP Reviewed: Not Reviewed Attestations 2 Medical Necessity Statement*: Urinary retention, cellulitis Diagnoses Cellulitis of lower leg L03.119 Lower extremity edema R60.0 Fever R50.9 Peripheral neuropathy G62.9
--- NOTE | 2024-12-02 12:36 | CTR_ITS ---
PROCEDURE INFORMATION: Exam: CT Abdomen And Pelvis With Contrast Exam date and time: 12/02/2024 2:47 PM Age: 69 years old Clinical indication: Other: Urinary retention TECHNIQUE: Imaging protocol: Computed tomography of the abdomen and pelvis with contrast. Radiation optimization: All CT scans at this facility use at least one of these dose optimization techniques: automated exposure control; mA and/or kV adjustment per patient size (includes targeted exams where dose is matched to clinical indication); or iterative reconstruction. Contrast material: OMNI 350; Contrast volume: 100 ml; Contrast route: INTRAVENOUS (IV); COMPARISON: CT ang ches abdpel [id number] 07/25/2022 1:51 PM RADIATION DOSE METRICS: Total DLP (mGy-cm): 1226 FINDINGS: Liver: Hepatic steatosis. No significant focal hepatic lesions. Gallbladder and biliary ducts: Normal. No calcified stones. No ductal dilation. Pancreas: Normal. No ductal dilation. Spleen: Normal. No splenomegaly. Adrenal glands: Normal. No mass. Kidneys and ureters: Nonobstructing right intrarenal stone measuring 4.5 mm. No hydronephrosis or suspicious renal masses. Simple left renal cyst measuring 12 mm. Follow-up indicated. No ureteral stones. Stomach and bowel: Normal caliber of the bowel without evidence of obstruction. No focal bowel wall thickening or inflammation. Anastomotic suture line at the level of the rectosigmoid junction. Appendix: No evidence of appendicitis. Intraperitoneal space: Unremarkable. No free air. No significant fluid collection. Vasculature: Unremarkable. No abdominal aortic aneurysm. Lymph nodes: Unremarkable. No enlarged lymph nodes. Urinary bladder: Torre catheter and iatrogenic air in the urinary bladder which is partially decompressed. Reproductive: No significant prostatic abnormalities. Bones/joints: Unremarkable. No acute fracture. Soft tissues: Unremarkable. CT/CT abdomen pelvis w con* [id number] IMPRESSION: 1. No acute findings in the abdomen or pelvis. 2. Torre catheter and iatrogenic in the urinary bladder which is partially decompressed. 3. Nonobstructing right intrarenal stone measuring 4.5 mm. 4. Hepatic steatosis. No significant focal hepatic lesions. COMMENTS: Consistent with the [employer]'s Incidental Findings Committee white paper (J Am Jaylon Radiol 2018): Any incidental renal lesion less than 1 cm or classified as too small to characterize, or any incidental cystic renal lesion characterized as simple-appearing, is likely benign. No follow-up imaging is recommended for these lesions per consensus recommendations based on imaging criteria.
[2024-12-02] MEDS: FUROsemide 10 mg/mL SDV 2mL 20 MG IVP (12:46)
[2024-12-02 14:00] LABS: Hematocrit 34.6 % (37-53); Hemoglobin 11.60 g/dL (11.27-16.99); Mean Corpuscular HGB Conc 33.5 g/dL (30-55); Mean Corpuscular Hemoglobin 29.3 pg (27-33); Mean Corpuscular Volume 87.4 fl (82-101); Nucleated Red Blood Cells % 0 %; Platelet Count 172 10^3/cmm (157-399); Red Blood Count 3.96 10^6/uL (3.85-5.65); White Blood Count 8.47 10^3/uL (3.29-11.43)
[2024-12-02 14:10] LABS: Anion Gap 13.4 (5-19); Blood Urea Nitrogen 16 mg/dL (8-23); Calcium 8.1 mg/dL (8.5-10.5); Carbon Dioxide 25 mmol/L (22-29); Chloride 101 mmol/L (98-107); Creatinine Clr Calc Pharmacy 89.8434; Glucose 121 mg/dL (65-115); Osmolality Calculated 284 mOsm/kg (285-295); Potassium 3.4 mmol/L (3.5-5.1); Sodium 136 mmol/L (136-145)
[2024-12-02] MEDS: iohexol 350 mg/mL 500 mL Btl (per mL) IV (14:51)
[2024-12-03] VITALS (7 sets, daily range): BP systolic 95–136; BP diastolic 54–76; PULSE 97–107; RESP 16–18; TEMP 36.8–37.3; O2SAT 92–99
--- NOTE | 2024-12-03 00:09 | PC.NURSE ---
gabapentin late administering per pt request
[2024-12-03 05:32] LABS: Alanine Aminotransferase 23 U/L (0-41); Albumin Level 2.9 g/dL (3.5-5.2); Alkaline Phosphatase 160 U/L (40-130); Anion Gap 12.5 (5-19); Aspartate Amino Transferase 37 U/L (0-40); Blood Urea Nitrogen 14 mg/dL (8-23); Calcium 8.2 mg/dL (8.5-10.5); Carbon Dioxide 25 mmol/L (22-29); Chloride 106 mmol/L (98-107); Creatinine Clr Calc Pharmacy 89.8434; Globulin 3.0 g/dL (1.3-4.6); Glucose 104 mg/dL (65-115); Magnesium 1.6 mg/dL (1.7-2.3); Osmolality Calculated 291 mOsm/kg (285-295); Potassium 3.5 mmol/L (3.5-5.1); Sodium 140 mmol/L (136-145); Total Protein 5.9 g/dL (6.6-8.7)
[2024-12-03] MEDS: cefepime 2,000 mg SDV 2000 MG IVP ×3 (06:02→20:11)
[2024-12-03] MEDS: magnesium sulfate premix 2 GM/50 ML PIGGYBACK IV (08:14)
--- NOTE | 2024-12-03 10:07 | PC.SOCIAL ---
*IMM* updated, IMM dated, initialled and placed in chart. Patient received copy.
[2024-12-03] MEDS: FUROsemide 10 mg/mL SDV 2mL 20 MG IVP ×2 (13:14→16:37)
--- NOTE | 2024-12-03 15:06 | P.PN_ITS ---
Subjective 2 Subjective: Seen this morning. Cellulitis improving Vitals/I&O/Wt Last Vital Signs Temp 98.5 F 12/03/24 11:28 Pulse 101 H 12/03/24 11:28 Resp 18 12/03/24 11:28 BP 110/66 12/03/24 11:28 Pulse Ox 94 12/03/24 11:28 O2 Del Method Room Air 12/03/24 11:28 12/03/24 12/03/24 12/03/24 06:59 14:59 22:59 Intake Total 480 / 2027.5 1650 / 1650 Output Total 750 / 750 Balance -270 / 1277.5 1650 / 1650 Weight last 48 hrs Weight 126.694 kg Weight 124.874 kg Weight 117.934 kg Weight 117.934 kg Physical Exam 2 Narrative: General: Alert oriented x3, patient seen sitting up in bed appearing comfortable at this time. HEENT: Normocephalic, atraumatic, EOMI, Cardio: Regular rate rhythm, normal S1-S2, Respiratory: Clear to auscultation bilaterally no wheezes no rhonchi GI: Abdomen soft, nontender,bowel sounds + Extremities: Left lower leg warm to touch, mild tenderness, redness extending all the way up close to the knee. We will cheryl with skin marker today. - Significant improvement. Urinary Catheter Management: Coude: Cath Placed During This Visit: yes Reason for Continuing Indwelling Catheter: Acute Urinary Retention or Obstruction Urinary Catheter Date of Insertion: 12/02/24 Urinary Catheter Time of Insertion: 11:02 Data 12/02/24 13:44 12/03/24 04:52 Micro: Microbiology 12/01/24 18:08 Blood Culture - Preliminary Blood NEGATIVE TO DATE 12/01/24 18:06 Blood Culture - Preliminary Blood NEGATIVE TO DATE A&P Assessment and plan 1. Cellulitis of lower le. Lower extremity edema: 3. Fever: 4. Peripheral neuropathy: Plan: Fever - Fever is secondary to left lower extremity cellulitis -Admit to general medical floor for IV antibiotics for left lower extremity cellulitis - Obtain Doppler ultrasound of the left lower extremity rule out DVT for leg swelling - Continue to treat and monitor Left lower extremity cellulitis with swelling - IV antibiotics initiated with cefepime and oral Bactrim - Gentle hydration 12/02/2024 #Nonischemic cardiomyopathy #Hypertension #Atrial fibrillation #Chronic anticoagulation #Heart failure #Urinary retention #Cellulitis White count 13,000 on admission. No morning labs available today. Check CBC CMP today. Await results. BNP 2700. Patient on Lasix 20 at home with instructions to hold if blood pressure low. Blood pressure 99/64 this morning. Does have lower extremity edema. Venous Dopplers negative for DVT. I will continue atorvastatin, gabapentin, potassium, Xarelto. Urinary retention: Will place a Torre catheter. Patient states he has a large prostate. He is on tamsulosin at home. I will continue at this time. Watch for soft blood pressures Reduce metoprolol to 12.[address] abdomen pelvis dvt ppx: xarelto 12/03/2024 Continue Torre catheter and discharged on Torre catheter. Will need to follow- up with urology as an outpatient Continue tamsulosin Continue on Xarelto, omeprazole, metoprolol, gabapentin Continue Lasix 20 IV daily. Ordered an additional dose of 20 IV x 1 today. Does have lower extremity edema. Venous Dopplers negative for DVT. I will continue atorvastatin, gabapentin, potassium, Xarelto. PDMP PDMP Reviewed: Not Reviewed Attestations 2 Medical Necessity Statement*: Cellulitis Diagnoses Cellulitis of lower leg L03.119 Lower extremity edema R60.0 Fever R50.9 Peripheral neuropathy G62.9
[2024-12-03] MEDS: ATORVASTATIN 10 MG TABLET PO (20:10)
[2024-12-04] VITALS: BP 115/78; PULSE 108; RESP 20; TEMP 36.8; O2SAT 97
[2024-12-04 03:31] LABS: Hematocrit 35.6 % (37-53); Hemoglobin 11.90 g/dL (11.27-16.99); Mean Corpuscular HGB Conc 33.4 g/dL (30-55); Mean Corpuscular Hemoglobin 29.4 pg (27-33); Mean Corpuscular Volume 87.9 fl (82-101); Nucleated Red Blood Cells % 0 %; Platelet Count 192 10^3/cmm (157-399); Red Blood Count 4.05 10^6/uL (3.85-5.65); White Blood Count 5.89 10^3/uL (3.29-11.43)
[2024-12-04 03:56] LABS: Anion Gap 11.9 (5-19); Blood Urea Nitrogen 14 mg/dL (8-23); Calcium 8.0 mg/dL (8.5-10.5); Carbon Dioxide 28 mmol/L (22-29); Chloride 103 mmol/L (98-107); Creatinine Clr Calc Pharmacy 90.5410; Glucose 97 mg/dL (65-115); Magnesium 2.0 mg/dL (1.7-2.3); Osmolality Calculated 288 mOsm/kg (285-295); Potassium 3.9 mmol/L (3.5-5.1); Sodium 139 mmol/L (136-145)
[2024-12-04 04:00] VITALS: BP 98/63; PULSE 89; RESP 17; TEMP 36.9; O2SAT 97
[2024-12-04] MEDS: cefepime 2,000 mg SDV 2000 MG IVP (04:42)
[2024-12-04] MEDS: morphine 4 mg/mL SDV 1 mL IVP (05:36)
[2024-12-04 08:00] VITALS: BP 109/66; PULSE 85; RESP 16; TEMP 36.9; O2SAT 95
[2024-12-04 11:30] VITALS: BP 93/56; PULSE 87; RESP 19; TEMP 36.7; O2SAT 97
--- NOTE | 2024-12-04 11:46 | PM.DCS ---
Discharge Providers Date of Admission: 12/01/24 20:55 Date of Discharge: December 04, 2024 Attending Provider at Admission: Deanna Frank MD Attending Provider at Discharge: Charlene Waite MD Primary Care Provider: Taco Carpenter MD Diagnoses at Discharge Discharge Diagnosis 1. Cellulitis of lower le. Lower extremity edema: 3. Fever: 4. Peripheral neuropathy: Reason for Visit Reason for Visit: legs swollen Hospital Course Hospital Course Patient presented to the hospital with left lower extremity cellulitis. He was on IV cefepime along with Bactrim during hospital stay. Cellulitis improved and he was able to walk and felt better. Blood cultures negative to date from admission. White count normal. Patient afebrile. Doing well. He was transition to doxycycline and cefdinir for 8 more days and to follow-up with primary care doctor as an outpatient. During hospital stay he was noted to have urinary tension for which Torre catheter was placed. He was discharged home with a Torre to follow-up with urology as an outpatient. Referral given to patient. I did reduce his metoprolol to 25 succinate daily. Physical Exam Narrative: General: Alert oriented x3, patient seen sitting up in bed appearing comfortable at this time. HEENT: Normocephalic, atraumatic, EOMI, Cardio: Regular rate rhythm, normal S1-S2, Respiratory: Clear to auscultation bilaterally no wheezes no rhonchi GI: Abdomen soft, nontender,bowel sounds + Extremities: Left lower leg longer warm to touch, tenderness not present. Some wrinkling present. Edema has improved significantly. Redness is also improved. Patient able to bear weight and is doing well. Urinary Catheter Management: Coude: Cath Placed During This Visit: yes Reason for Continuing Indwelling Catheter: Other Urinary Catheter Date of Insertion: 12/02/24 Urinary Catheter Time of Insertion: 11:02 Discharge Data Studies Completed and Pending Completed Studies During Hospitalization Category Date Time Status CT abdomen pelvis w con* [id number] Urgent Cat Scan 12/02/24 12:36 Completed XR chest 1V portable [id number] Stat Exams 12/01/24 17:58 [place] [id number] Urgent Ultrasound 12/02/24 07:06 Completed Pending at discharge Category Date Time Status Blood Culture Stat Lab 12/01/24 18:08 Results Radiology Impressions Chest X-Ray 12/01/24 17:58 IMPRESSION: No acute findings. Abdomen/Pelvis CT 12/02/24 12:36 IMPRESSION: 1. No acute findings in the abdomen or pelvis. 2. Torre catheter and iatrogenic in the urinary bladder which is partially decompressed. 3. Nonobstructing right intrarenal stone measuring 4.5 mm. 4. Hepatic steatosis. No significant focal hepatic lesions. COMMENTS: Consistent with the [place] [employer]'s Incidental Findings Committee white paper (J Am Jaylon Radiol 2018): Any incidental renal lesion less than 1 cm or classified as too small to characterize, or any incidental cystic renal lesion characterized as simple-appearing, is likely benign. No follow-up imaging is recommended for these lesions per consensus recommendations based on imaging criteria. Laboratory Results WBC 5.89 10^3/uL (3.29-11.43) 12/04/24 02:47 RBC 4.05 10^6/uL (3.85-5.65) 12/04/24 02:47 Hgb 11.90 g/dL (11.27-16.99) 12/04/24 02:47 Hct 35.6 % (37-53) L 12/04/24 02:47 MCV 87.9 fl (82-101) 12/04/24 02:47 MCH 29.4 pg (27-33) 12/04/24 02:47 MCHC 33.4 g/dL (30-55) 12/04/24 02:47 RDW 13.2 % (12.1-15.1) 12/04/24 02:47 Plt Count 192 10^3/cmm (157-399) 12/04/24 02:47 MPV 10.4 fL (7.4-10.4) 12/04/24 02:47 Neut % (Auto) 72.0 % 12/04/24 02:47 Lymph % (Auto) 12.4 % 12/04/24 02:47 [place] % (Auto) 9.7 % 12/04/24 02:47 Eos % (Auto) 4.9 % 12/04/24 02:47 Baso % (Auto) 0.7 % 12/04/24 02:47 Neut # (Auto) 4.24 10^3/uL (1.8-7.7) 12/04/24 02:47 Lymph # (Auto) 0.7 10^3/uL (0.8-4.8) L 12/04/24 02:47 [place] # (Auto) 0.6 10^3/uL (0.2-0.9) 12/04/24 02:47 Eos # (Auto) 0.3 10^3/uL (0.0-0.8) 12/04/24 02:47 Baso # (Auto) 0.0 10^3/uL (0.0-0.1) 12/04/24 02:47 Nucleated RBC % (auto) 0 % 12/04/24 02:47 Nucleated RBCs # 0.0 /100WBC 12/04/24 02:47 ESR 9 mm/hr (0-10) 12/01/24 18:06 Sodium 139 mmol/L (136-145) 12/04/24 02:47 Potassium 3.9 mmol/L (3.5-5.1) 12/04/24 02:47 Chloride 103 mmol/L (98-107) 12/04/24 02:47 Carbon Dioxide 28 mmol/L (22-29) 12/04/24 02:47 Anion Gap 11.9 (5-19) 12/04/24 02:47 BUN 14 mg/dL (8-23) 12/04/24 02:47 Creatinine 1.0 mg/dL (0.7-1.2) 12/04/24 02:47 GFR Calculation Not Reportable 12/04/24 02:47 Glucose 97 mg/dL (65-115) 12/04/24 02:47 Calculated Osmolality 288 mOsm/kg (285-295) 12/04/24 02:47 Lactic Acid 1.4 mmol/L (0.5-2.2) 12/01/24 18:06 Calcium 8.0 mg/dL (8.5-10.5) L 12/04/24 02:47 Phosphorus 2.3 mg/dL (2.5-4.5) L 12/04/24 02:47 Magnesium 2.0 mg/dL (1.7-2.3) 12/04/24 02:47 Total Bilirubin 1.4 mg/dL (0.15-1.2) H 12/03/24 04:52 AST 37 U/L (0-40) 12/03/24 04:52 ALT 23 U/L (0-41) 12/03/24 04:52 Alkaline Phosphatase 160 U/L (40-130) H 12/03/24 04:52 Troponin T Baseline 10 ng/L (0-15) 12/01/24 18:06 Troponin T 120 Minute 15.30 ng/L (0-15) H 12/01/24 19:53 Delta Troponin T 5.30 ABS# (0-10) 12/01/24 19:53 Troponin T Hi Sens 6Hr 15.30 ng/L (0-15) H 12/02/24 00:00 Troponin T Hi Sens 6Hr Delta 5.30 ng/L (0-12) 12/02/24 00:00 C-Reactive Protein 37.8 mg/L (0.0-4.9) H 12/01/24 18:06 NT-Pro-B Natriuret Pep 2762 pg/mL (0-125) H 12/01/24 18:06 Total Protein 5.9 g/dL (6.6-8.7) L 12/03/24 04:52 Albumin 2.9 g/dL (3.5-5.2) L 12/03/24 04:52 Globulin 3.0 g/dL (1.3-4.6) 12/03/24 04:52 Urine Color Malone (Yellow) A 12/01/24 18:35 Urine Appearance Clear (CLEAR) 12/01/24 18:35 Urine pH 5.5 (5-7) 12/01/24 18:35 Ur Specific [place] 1.019 (1.005-1.030) 12/01/24 18:35 Urine Protein Trace (Negative) A 12/01/24 18:35 Urine Glucose (UA) Negative (Normal) 12/01/24 18:35 Urine Ketones Trace (Negative) 12/01/24 18:35 Urine Blood Negative (Negative) 12/01/24 18:35 Urine Nitrate Negative (Negative) 12/01/24 18:35 Urine Bilirubin Negative (Negative) 12/01/24 18:35 Urine Urobilinogen 1.0 mg/dL (Negative) 12/01/24 18:35 Ur Leukocyte Esterase Trace (Negative) A 12/01/24 18:35 Urine RBC 0-2 /hpf (0-2) 12/01/24 18:35 Urine WBC 0-5 /hpf (0-5) 12/01/24 18:35 Ur Squamous Epith Cells 0-5 /hpf (0-5) 12/01/24 18:35 Amorphous Sediment Not Reportable 12/01/24 18:35 Urine Bacteria None seen /hpf (NONE) 12/01/24 18:35 Hyaline Casts 0.40 /lpf 12/01/24 18:35 Vitals Last Vital Signs Temp 98.1 F 12/04/24 11:30 Pulse 87 12/04/24 11:30 Resp 19 H 12/04/24 11:30 BP 93/56 12/04/24 11:30 Pulse Ox 97 12/04/24 11:30 O2 Del Method Room Air 12/04/24 11:30 Discharge Plan Discharge Patient Disposition: Home Condition: Stable Prescriptions: New doxycycline monohydrate 100 mg Tablet 100 mg PO BID Qty: 16 0RF cefdinir 300 mg capsule 300 mg PO BID Qty: 16 0RF metoprolol succinate 25 mg tablet extended release 24 hr 25 mg PO DAILY Qty: 30 0RF Continued gabapentin 300 mg capsule 300 mg PO TID 30 Days Qty: 90 3RF atorvastatin 10 mg tablet 10 mg PO QAM furosemide 20 mg tablet See Rx Instructions .ROUTE .COMPLEX Qty: 180 0RF Dose Instruction: TAKE 1 TABLET BY MOUTH TWICE DAILY MAY REDUCE TO 10MG IF BLOOD PRESSURE IS TOO LOW Rx Instructions: TAKE 1 TABLET BY MOUTH TWICE DAILY MAY REDUCE TO 10MG IF BLOOD PRESSURE IS TOO LOW tamsulosin 0.4 mg capsule 0.4 mg PO QAM omeprazole 20 mg capsule,delayed release(DR/EC) 20 mg PO QAM imiquimod 5 % cream in packet See Rx Instructions .ROUTE .COMPLEX Rx Instructions: APPLY THIN LAYER WITH Q-TIP TO HEALED AREA OF BIOPSY IN FRONT OF LEFT EAR AT BEDTIME, FRIDAY-FRIDAY ( OFF WEEKENDS) FOR 6 WEEKS ONLY AND THEN STOP. WILL CAUSE SKIN IRRITAION potassium chloride 10 mEq tablet extended release 10 meq PO DAILY Xarelto 20 mg tablet 20 mg PO QAM Discontinued metoprolol tartrate 50 mg tablet 50 mg PO BID Qty: 180 3RF Discharge Order = DC NOW: Discharge Order (Routine); Ordered 12/04/24 Ordered By: Charlene Waite Referrals: Albert Garcia [Referring, Urology] - 4-7 days Referral Note: We have notified your physician's clinic of the need for a follow-up appointment to be scheduled. If you have not heard from them within the next 2 business days, please call them directly. Taco Carpenter MD [Primary Care Provider, [facility]] - 4-7 days Referral Note: We have notified your physician's clinic of the need for a follow-up appointment to be scheduled. If you have not heard from them within the next 2 business days, please call them directly. Discharge Diet: Cardiac Discharge Activity: Resume usual activity Patient Instructions: Metoprolol (By mouth), Doxycycline (By mouth), Cefdinir (By mouth), Torre Catheter Placement and Care (GEN), Opioid Safety, Patient Portal & Luiza Instructions Discharge Attestations Time Spent in Discharge Care*: less than 30 min Quality Metrics Clinical Quality Measures [ No reported AMI, CVA or VTE this stay] Coding Level of Care Code Acute Code for Chg Fwd Diagnoses Cellulitis of lower leg L03.119 Lower extremity edema R60.0 Fever R50.9 Peripheral neuropathy G62.9
[2024-12-04 12:59] VITALS: BP 93/56; PULSE 87; RESP 19; TEMP 36.7; O2SAT 97
== END 2024-12-04 13:07 | disposition home or self-care (01) | DRG 603 ==
LOC: ER 20:57 → MEDSURG 21:28
PROVIDERS: Admitting Provider Internal Medicine; Emergency Provider Emergency Medicine; PCP Family Medicine; Visit Provider Internal Medicine
DX: L03.116 Cellulitis of left lower limb (principal); I42.8 Other cardiomyopathies; G62.9 Polyneuropathy, unspecified; R33.9 Retention of urine, unspecified; E66.01 Morbid (severe) obesity due to excess calories; Z68.37 Body mass index [BMI] 37.0-37.9, adult; I50.9 Heart failure, unspecified; I11.0 Hypertensive heart disease with heart failure; E78.5 Hyperlipidemia, unspecified; I48.91 Unspecified atrial fibrillation; Z79.01 Long term (current) use of anticoagulants
CPT/HCPCS: 36415; 51702; 71045; 74177; 80048; 80053; 81001; 83605; 83735; 83880; 84100; 84484; 85025; 85651; 86140; 87040; 87150; 87205; 93005; 93971; 96365; 96372; 96375; 99285; J0692; J1644; J1938; J2020; J2270; J3475; J7030; J9999

== ENCOUNTER 2024-12-07 12:11 | Inpatient (IN) | payer MEDICARE, SELFPAY ==
--- OUTSIDE RECORDS SUMMARY | 2024-12-07 11:30 | XMS_ITS | Encounter Summary ---
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
--- OUTSIDE RECORDS SUMMARY | 2024-12-07 11:30 | XMS_ITS | Encounter Summary ---
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
--- OUTSIDE RECORDS SUMMARY | 2024-12-07 11:30 | XMS_ITS | Encounter Summary ---
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
--- OUTSIDE RECORDS SUMMARY | 2024-12-07 11:30 | XMS_ITS | Encounter Summary ---
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
--- OUTSIDE RECORDS SUMMARY | 2024-12-07 11:30 | XMS_ITS | Clinical Summary ---
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
--- OUTSIDE RECORDS SUMMARY | 2024-12-07 11:30 | XMS_ITS | Encounter Summary ---
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
--- OUTSIDE RECORDS SUMMARY | 2024-12-07 11:30 | XMS_ITS | Clinical Summary ---
Author Organization [facility] Address [address] [place] [address] Care Team Providers Care Steward/Stewardess Deck Name Role Phone Unavailable Primary Care Provider Unavailabl e Medications HYDROCODONE BIT/ACETAMINOPHE N (VICODIN ORAL) Take by mouth. Active Social History Tobacco Use Types Packs/Day Years Used Date Smoking Tobacco: Never Assessed Sex and Gender Information Value Date Recorded Sex Assigned at Not on file Legal Sex Male 5:47 AM TALENT MANAGER Gender Identity Not on file Sexual Orientation [...] series) [address] [place] [address]
[2024-12-07 11:39] VITALS: BP 126/83; PULSE 78; TEMP 36.6; O2SAT 98
--- NOTE | 2024-12-07 12:00 | W.ED.RECABL ---
HPI - Recheck/Abnormal Lab/Rx General: Chief Complaint: Recheck/Abnormal Lab/Rx Stated Complaint: pos blood infection Time Seen by Provider: 12/07/24 11:28 Related Data Home Medications ?Medication ?Instructions ?Recorded ?Confirmed atorvastatin 10 mg tablet 10 mg PO QAM 02/18/22 12/02/24 omeprazole 20 mg capsule,delayed 20 mg PO QAM 07/25/22 12/02/24 release tamsulosin 0.4 mg capsule 0.4 mg PO QAM 07/25/22 12/02/24 imiquimod 5 % topical cream packet See Rx Instructions .Route .COMPLEX 12/02/24 12/02/24 potassium chloride 10 mEq 10 meq PO DAILY 12/02/24 12/02/24 tablet,extended release rivaroxaban 20 mg tablet (Xarelto) 20 mg PO QAM 12/02/24 12/02/24 Previous Rx's ?Medication ?Instructions ?Recorded gabapentin 300 mg capsule 300 mg PO TID 30 days #90 caps 10/14/19 furosemide 20 mg tablet See Rx Instructions .Route 10/12/24 .COMPLEX #180 tabs cefdinir 300 mg capsule 300 mg PO BID #16 caps 12/04/24 doxycycline monohydrate 100 mg 100 mg PO BID #16 tabs 12/04/24 tablet metoprolol succinate 25 mg 25 mg PO DAILY #30 tabs 12/04/24 tablet,extended release 24 hr Allergies Allergy/AdvReac Type Severity Reaction Status Date / Time No Known Allergies Allergy Verified 12/07/24 11:44 [facility] ED [facility]: Medical History (Updated 12/02/24 @ 00:41 by Deanna Frank MD) Tubular adenoma of colon History of colon polyps Nonischemic cardiomyopathy Anticoagulation adequate with anticoagulant therapy Xarelto Congestive heart failure Atrial fibrillation Essential hypertension Facet syndrome, lumbar Spinal stenosis, lumbar Osteoarthritis of both knees Long-term use of high-risk medication Low back pain with radiation Surgical History History of colonoscopy H/O partial thyroidectomy S/P hernia repair Hx of neck surgery S/P routine circumcision S/P tonsillectomy History of bowel resection LARGE BOWEL Family History Mother Stroke Father CAD (coronary artery disease) Myocardial infarct Denies family history of Anesthesia complication Bleeding disorder Social History Smoking and tobacco/nicotine status: never used tobacco/nicotine Second hand smoke exposure: No Alcohol intake: never Substance/Drug Use: never Adopted: No Caregiver/support person: No Lives independently: Yes Household members: spouse Housing: House Marital status: Number of children: 0 Highest education level completed: High School Graduate service: No Current occupational status: retired Course Vital Signs: Vital signs: Vital Signs Temperature 97.8 F 12/07/24 11:39 Pulse Rate 78 12/07/24 11:39 Blood Pressure 126/83 12/07/24 11:39 Pulse Oximetry 98 12/07/24 11:39 Oxygen Delivery Me thod Room Air 12/07/24 11:39 Discharge Plan Discharge Condition: Stable Prescriptions: No Action gabapentin 300 mg capsule 300 mg PO TID 30 Days Qty: 90 3RF atorvastatin 10 mg tablet 10 mg PO QAM furosemide 20 mg tablet See Rx Instructions .ROUTE .COMPLEX Qty: 180 0RF Dose Instruction: TAKE 1 TABLET BY MOUTH TWICE DAILY MAY REDUCE TO 10MG IF BLOOD PRESSURE IS TOO LOW Rx Instructions: TAKE 1 TABLET BY MOUTH TWICE DAILY MAY REDUCE TO 10MG IF BLOOD PRESSURE IS TOO LOW tamsulosin 0.4 mg capsule 0.4 mg PO QAM omeprazole 20 mg capsule,delayed release(DR/EC) 20 mg PO QAM imiquimod 5 % cream in packet See Rx Instructions .ROUTE .COMPLEX Rx Instructions: APPLY THIN LAYER WITH Q-TIP TO HEALED AREA OF BIOPSY IN FRONT OF LEFT EAR AT BEDTIME, FRIDAY-FRIDAY ( OFF WEEKENDS) FOR 6 WEEKS ONLY AND THEN STOP. WILL CAUSE SKIN IRRITAION potassium chloride 10 mEq tablet extended release 10 meq PO DAILY Xarelto 20 mg tablet 20 mg PO QAM doxycycline monohydrate 100 mg Tablet 100 mg PO BID Qty: 16 0RF cefdinir 300 mg capsule 300 mg PO BID Qty: 16 0RF metoprolol succinate 25 mg tablet extended release 24 hr 25 mg PO DAILY Qty: 30 0RF Referrals: Taco Carpenter MD [Primary Care Provider, Family Practice] Print Language: Russian Coding Level of Care Code ED Cardiothoracic Surgeon for g Fwd
--- OUTSIDE RECORDS SUMMARY | 2024-12-07 12:16 | XMS_ITS | Clinical Summary ---
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
--- OUTSIDE RECORDS SUMMARY | 2024-12-07 12:16 | XMS_ITS | Encounter Summary ---
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
--- OUTSIDE RECORDS SUMMARY | 2024-12-07 12:16 | XMS_ITS | Clinical Summary ---
Author Organization [facility] Address [address] [place] [address] Care Team Providers Care Veterinary Milk Specialist Name Role Phone Unavailable Primary Care Provider Unavailabl e Medications HYDROCODONE BIT/ACETAMINOPHE N (VICODIN ORAL) Take by mouth. Active Social History Tobacco Use Types Packs/Day Years Used Date Smoking Tobacco: Never Assessed Sex and Gender Information Value Date Recorded Sex Assigned at Not on file Legal Sex Male 5:47 AM PSYCHOLOGIST EXPERIMENTAL Gender Identity Not on file Sexual Orientation [...] series) [address] [place] [address]
--- OUTSIDE RECORDS SUMMARY | 2024-12-07 12:16 | XMS_ITS | Encounter Summary ---
Author Organization [facility] Address [address] [facility] Attn: [place] [address] Care Team Providers Care Cognos Report Developer Name Role Phone Unavailable Primary Care Provider Unavailabl e Encounter Details Date Type Department Care Team (Late st Contact Info) Description 09/15/2000 Outpatient Historical Non-Staff, Physician NO ADDRESS ON FILE Social History Tobacco Use Types Packs/Day Years Used Date Smoking Tobacco: Never Assessed Sex and Gender Information Value Date Recorded Sex Assigned at Not on file Legal Sex Male 5:47 AM FINISHED GARMENT INSPECTOR Gender Identity Not on file Sexual Orientation Not on file documented as of this encounter Plan of Treatment Not on file documented as of this encounter Visit Diagnoses Not on filedocumented in this encounter
--- OUTSIDE RECORDS SUMMARY | 2024-12-07 12:16 | XMS_ITS | Encounter Summary ---
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
--- OUTSIDE RECORDS SUMMARY | 2024-12-07 12:16 | XMS_ITS | Encounter Summary ---
Author Organization 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
--- OUTSIDE RECORDS SUMMARY | 2024-12-07 12:16 | XMS_ITS | Encounter Summary ---
Author Organization [facility] Address [address] Attn: [place] [address] Care Team Providers Care Sports Team Manager Name Role Phone Unavailable Primary Care Provider Unavailabl e Encounter Details Date Type Department Care Team (Late st Contact Info) Description 08/22/2000 Outpatient Historical Non-Staff, Physician NO ADDRESS ON FILE Social History Tobacco Use Types Packs/Day Years Used Date Smoking Tobacco: Never Assessed Sex and Gender Information Value Date Recorded Sex Assigned at Not on file Legal Sex Male 5:47 AM [employer] Gender Identity Not on file Sexual Orientation Not on file documented as of this encounter Plan of Treatment Not on file documented as of this encounter Visit Diagnoses Not on filedocumented in this encounter
[2024-12-07 12:22] VITALS: BMI 37.8
[2024-12-07 12:24] LABS: Hematocrit 41.6 % (37-53); Hemoglobin 13.70 g/dL (11.27-16.99); Mean Corpuscular HGB Conc 32.9 g/dL (30-55); Mean Corpuscular Hemoglobin 29.4 pg (27-33); Mean Corpuscular Volume 89.3 fl (82-101); Nucleated Red Blood Cells % 0 %; Platelet Count 263 10^3/cmm (157-399); Red Blood Count 4.66 10^6/uL (3.85-5.65); White Blood Count 5.66 10^3/uL (3.29-11.43)
[2024-12-07 12:37] VITALS: BP 130/74; PULSE 80; RESP 16; TEMP 36.8; O2SAT 98
[2024-12-07 12:38] LABS: Lactic Sepsis W/Reflex 1.1 mmol/L (0.5-2.2)
[2024-12-07 12:39] LABS: Alanine Aminotransferase 27 U/L (0-41); Albumin Level 3.7 g/dL (3.5-5.2); Alkaline Phosphatase 205 U/L (40-130); Anion Gap 15.3 (5-19); Aspartate Amino Transferase 36 U/L (0-40); Blood Urea Nitrogen 13 mg/dL (8-23); Calcium 9.3 mg/dL (8.5-10.5); Carbon Dioxide 28 mmol/L (22-29); Chloride 101 mmol/L (98-107); Creatinine Clr Calc Pharmacy 109.8480; Globulin 3.7 g/dL (1.3-4.6); Glucose 99 mg/dL (65-115); Osmolality Calculated 290 mOsm/kg (285-295); Potassium 4.3 mmol/L (3.5-5.1); Sodium 140 mmol/L (136-145); Total Protein 7.4 g/dL (6.6-8.7)
--- NOTE | 2024-12-07 12:41 | PM.HP ---
Providers/Chief Complaint Admitting Physician: Charlene Waite MD Primary Care Provider: Taco Carpenter MD Chief Complaint: pos blood infection History of Present Illness Helder Mccloud is a 69 year old male with recent left leg cellulitis treated in hospital was discharged home on oral antitbiotics. Please see previous discharge summary. His blood culture from previous admission have resulted positive for tiny gram negative rods, final sensitivity pending. Patient was asked to return to hospital for further management. Patient reports worsening lower extremity edema but otherwise have been doing ok, denies any other complaints at this time. Torre catheter in place that was placed last admission. Medications/Allergies Home Medications ?Medication ?Instructions ?Recorded ?Confirmed ?Last Taken ?Type gabapentin 300 mg capsule 300 mg PO TID 30 days #90 caps 10/14/19 12/02/24 11/30/24 Rx atorvastatin 10 mg tablet 10 mg PO QAM 02/18/22 12/02/24 11/30/24 History omeprazole 20 mg capsule,delayed 20 mg PO QAM 07/25/22 12/02/24 11/30/24 History release tamsulosin 0.4 mg capsule 0.4 mg PO QAM 07/25/22 12/02/24 11/30/24 History furosemide 20 mg tablet See Rx Instructions .Route 10/12/24 12/02/24 11/30/24 Rx .COMPLEX #180 tabs imiquimod 5 % topical cream packet See Rx Instructions .Route .COMPLEX 12/02/24 12/02/24 11/30/24 History potassium chloride 10 mEq 10 meq PO DAILY 12/02/24 12/02/24 11/30/24 History tablet,extended release rivaroxaban 20 mg tablet (Xarelto) 20 mg PO QAM 12/02/24 12/02/24 11/30/24 History cefdinir 300 mg capsule 300 mg PO BID #16 caps 12/04/24 Unknown Rx doxycycline monohydrate 100 mg 100 mg PO BID #16 tabs 12/04/24 Unknown Rx tablet metoprolol succinate 25 mg 25 mg PO DAILY #30 tabs 12/04/24 Unknown Rx tablet,extended release 24 hr Allergies Allergy/AdvReac Type Severity Reaction Status Date / Time No Known Allergies Allergy Verified 12/07/24 11:44 PFSH Acute PFSH: Medical History (Updated 12/07/24 @ 23:30 by Charlene Waite MD) Tubular adenoma of colon History of colon polyps Nonischemic cardiomyopathy Anticoagulation adequate with anticoagulant therapy Xarelto Congestive heart failure Atrial fibrillation Essential hypertension Facet syndrome, lumbar Spinal stenosis, lumbar Osteoarthritis of both knees Long-term use of high-risk medication Low back pain with radiation Surgical History History of colonoscopy H/O partial thyroidectomy S/P hernia repair Hx of neck surgery S/P routine circumcision S/P tonsillectomy History of bowel resection LARGE BOWEL Family History Mother Stroke Father CAD (coronary artery disease) Myocardial infarct Denies family history of Anesthesia complication Bleeding disorder Social History Smoking and tobacco/nicotine status: never used tobacco/nicotine Second hand smoke exposure: No Alcohol intake: never Substance/Drug Use: never Adopted: No Caregiver/support person: No Lives independently: Yes Household members: spouse Housing: House Marital status: Number of children: 0 Highest education level completed: High School Graduate service: No Current occupational status: retired Vitals/I&O/Wt Last Vital Signs Temp 97.8 F 12/07/24 11:39 Pulse 78 12/07/24 11:39 BP 126/83 12/07/24 11:39 Pulse Ox 98 12/07/24 11:39 O2 Del Method Room Air 12/07/24 12:22 Weight last 48 hrs Weight 119.748 kg Weight 119.748 kg Physical Exam Narrative: General: Alert oriented x3, HEENT: Normocephalic, atraumatic, EOMI, Cardio: Regular rate rhythm, normal S1-S2, Respiratory: Clear to auscultation bilaterally no wheezes no rhonchi GI: Abdomen soft, nontender,bowel sounds + Extremities: Left lower leg not warm, non tender, erythema has improved, 3+ edema b/l LE. Urinary Catheter Management: Coude: Cath Placed During This Visit: yes Reason for Continuing Indwelling Catheter: Other Urinary Catheter Date of Insertion: 12/02/24 Urinary Catheter Time of Insertion: 11:02 Data 12/07/24 12:11 12/07/24 12:11 A&P Assessment and plan 1. Cellulitis of lower le. Lower extremity edema: 3. Peripheral neuropathy: 4. Urinary retention: 5. Indwelling catheter present on admission: 6. Bacteremia: 7. Essential hypertension: 8. Congestive heart failure: Plan: #Gram negative bacteremia #Diastolic HF #Nonischemic cardiomyopathy #Hypertension #Atrial fibrillation #Chronic anticoagulation #Heart failure #Urinary retention #Cellulitis - improving/resolving - Labs normal this admission - Initial Bcx from previous admission positive for gram neg rods, await final culture sensitvity - check blood cultures today - place on zosyn - check procal - Continue Torre catheter and discharged on Torre catheter. Will need to follow-up with urology as an outpatient - Continue tamsulosin - Continue on Xarelto, omeprazole, metoprolol, gabapentin - Continue Lasix 20 IV BID - Does have lower extremity edema. Venous Dopplers negative for DVT. - I will continue atorvastatin, gabapentin, potassium, Xarelto. DVT PPX : continue xarelto Full Code PDMP PDMP Reviewed: Not Reviewed Attestations Medical Necessity Statement*: gram neg bacteremia, > 2 midnight stay Diagnoses Cellulitis of lower leg L03.119 Lower extremity edema R60.0 Peripheral neuropathy G62.9 Urinary retention R33.9 Indwelling catheter present on admission Z96.0 Bacteremia R78.81 Essential hypertension I10 Congestive heart failure I50.9
[2024-12-07 12:46] LABS: Procalcitonin 0.25 ng/mL (0-0.5)
[2024-12-07] MEDS: piperacillin-tazobactam 3.375 GM in sodium chloride 0.9% (plus) 50 ML IV ×2 (14:56→23:49)
[2024-12-07 15:34] VITALS: BP 106/69; PULSE 75; RESP 15; TEMP 36.4; O2SAT 97
[2024-12-07 20:00] VITALS: BP 106/70; PULSE 78; RESP 16; TEMP 36.6; O2SAT 98
[2024-12-07] MEDS: FUROsemide 10 mg/mL SDV 2mL 20 MG IVP (23:49)
[2024-12-08] VITALS: BP 110/62; PULSE 83; RESP 17; TEMP 36.7; O2SAT 95
[2024-12-08 04:00] VITALS: BP 113/65; PULSE 68; RESP 16; TEMP 36.7; O2SAT 99
[2024-12-08 05:37] LABS: Hematocrit 38.7 % (37-53); Hemoglobin 12.90 g/dL (11.27-16.99); Mean Corpuscular HGB Conc 33.3 g/dL (30-55); Mean Corpuscular Hemoglobin 29.5 pg (27-33); Mean Corpuscular Volume 88.4 fl (82-101); Nucleated Red Blood Cells % 0 %; Platelet Count 265 10^3/cmm (157-399); Red Blood Count 4.38 10^6/uL (3.85-5.65); White Blood Count 6.54 10^3/uL (3.29-11.43)
[2024-12-08 06:01] LABS: Alanine Aminotransferase 24 U/L (0-41); Albumin Level 3.4 g/dL (3.5-5.2); Alkaline Phosphatase 181 U/L (40-130); Anion Gap 14.7 (5-19); Aspartate Amino Transferase 31 U/L (0-40); Blood Urea Nitrogen 11 mg/dL (8-23); Calcium 8.5 mg/dL (8.5-10.5); Carbon Dioxide 28 mmol/L (22-29); Chloride 102 mmol/L (98-107); Creatinine Clr Calc Pharmacy 96.8700; Globulin 3.3 g/dL (1.3-4.6); Glucose 117 mg/dL (65-115); Magnesium 2.0 mg/dL (1.7-2.3); Osmolality Calculated 292 mOsm/kg (285-295); Potassium 3.7 mmol/L (3.5-5.1); Sodium 141 mmol/L (136-145); Total Protein 6.7 g/dL (6.6-8.7)
[2024-12-08] MEDS: ATORVASTATIN 10 MG TABLET PO (06:20)
[2024-12-08] MEDS: piperacillin-tazobactam 3.375 GM in sodium chloride 0.9% (plus) 50 ML IV ×3 (06:21→23:20)
--- NOTE | 2024-12-08 06:34 | PC.NURSE ---
Pain: During morning med pass pt c/o back pain. Offered Tylenol and he declined. Says he takes Gabapentin for it - advised pt it will be given with 0900 med pass.
[2024-12-08 07:59] VITALS: BP 99/72; PULSE 73; RESP 15; TEMP 36.7; O2SAT 92
[2024-12-08] MEDS: FUROsemide 10 mg/mL SDV 2mL 20 MG IVP ×2 (08:14→17:20)
[2024-12-08] MEDS: metoprolol succinate ER (24 HR) 25 mg Tablet PO (08:14)
--- NOTE | 2024-12-08 08:27 | PC.PHAR ---
Pt states he did not get his evening dose of both current antibiotics, last night.
--- NOTE | 2024-12-08 09:58 | PC.CHAP ---
Pastoral Care Encounter/Spiritual Assessment Type of Contact [x] Declined habilitation worker visit [] Patient/Family/Request visit [] Outpatient visit [] Follow-up visit [] Physician referral [] Code/Alert [] Routine visit [] Staff referral [] Actively dying [] Patient sleeping [] Family support [] [] Out of room [] Palliative care [] [] Receiving care in room [] Pre-surgical visit [] Trauma [] Long length of stay [] ICU visit [] Other: Relational/Emotional Strength [] Patient feels connected with others/family/visitors/staff [] Distress [] Loneliness/isolation [] Abandonment Spirituality of Patient [] Person of Malaika [] Attends Synagogue of their [place] [] Believes in Prayer [] Reads Bible or Taoist materials [x] There are Spiritual issues to be addressed In Classroom Tutor Interventions [] Prayer [] Active listening [] Non-anxious presence [] Spiritual/emotional support [] Crisis/trauma care [] Spiritual counseling [] Bereavement support [] Provided bereavement packet [] Provided Bible/devotional materials [] Provided toy/stuffed animal, coloring book to patient or family member [] Provided Communion [] Anointing/[place] [] Salvation [] Completed spiritual assessment [] Other: Impact on Illness or Injury [] Angry [] Fearful [] Anxious [] Often cries [] Exhaustion [] Unable to work [] Unable to attend samaritan [] Unable to walk/stand [] Unable to read [] Unable to drive [] Unable to eat/drink [] Unable to sleep [] Unable to be with family [] Patient intubated [] Other: Summary Time spent with patient
[2024-12-08 11:12] VITALS: BP 112/76; PULSE 85; RESP 15; TEMP 36.5
--- NOTE | 2024-12-08 13:22 | P.PN_ITS ---
Subjective 2 Subjective: seen today cultures pending Vitals/I&O/Wt Last Vital Signs Temp 97.7 F 12/08/24 11:12 Pulse 85 12/08/24 11:12 Resp 15 12/08/24 11:12 BP 112/76 12/08/24 11:12 Pulse Ox 92 12/08/24 07:59 O2 Del Method Room Air 12/08/24 11:12 12/07/24 12/08/24 12/08/24 22:59 06:59 14:59 Intake Total 330 / 330 50 / 380 50 / 50 Output Total 700 / 700 1600 / 2300 Balance -370 / -370 -1550 / -1920 50 / 50 Weight last 48 hrs Weight 117.934 kg Weight 119.748 kg Weight 119.748 kg Physical Exam 2 Narrative: General: Alert oriented x3, HEENT: Normocephalic, atraumatic, EOMI, Cardio: Regular rate rhythm, normal S1-S2, Respiratory: Clear to auscultation bilaterally no wheezes no rhonchi GI: Abdomen soft, nontender,bowel sounds + Extremities: Left lower leg not warm, non tender, erythema has improved, 2+ edema b/l LE. wrinkling noted, LE edema improving Urinary Catheter Management: Coude: Cath Placed During This Visit: yes Reason for Continuing Indwelling Catheter: Other Urinary Catheter Date of Insertion: 12/02/24 Urinary Catheter Time of Insertion: 11:02 Data 12/08/24 05:05 12/08/24 05:05 Micro: Microbiology 12/07/24 12:11 Blood Culture - Preliminary Blood NEGATIVE TO DATE 12/07/24 13:39 Blood Culture - Preliminary Blood SPECIMEN COLLECTED A&P Assessment and plan 1. Cellulitis of lower le. Lower extremity edema: 3. Peripheral neuropathy: 4. Urinary retention: 5. Indwelling catheter present on admission: 6. Bacteremia: 7. Essential hypertension: 8. Congestive heart failure: Plan: #Gram negative bacteremia #Diastolic HF #Nonischemic cardiomyopathy #Hypertension #Atrial fibrillation #Chronic anticoagulation #Heart failure #Urinary retention #Cellulitis - improving/resolving - Labs normal this admission - Initial Bcx from previous admission positive for gram neg rods, await final culture sensitvity - check blood cultures today - place on zosyn - check procal - Continue Torre catheter and discharged on Torre catheter. Will need to follow-up with urology as an outpatient - Continue tamsulosin - Continue on Xarelto, omeprazole, metoprolol, gabapentin - Continue Lasix 20 IV BID - Does have lower extremity edema. Venous Dopplers negative for DVT. - I will continue atorvastatin, gabapentin, potassium, Xarelto. DVT PPX : continue xarelto Full Code 12/08/2024 seen today awaiting cultures continue zosyn check crp continue lasix 20 IV bid PDMP PDMP Reviewed: Not Reviewed Attestations 2 Medical Necessity Statement*: gram neg bacteremia, > 2 midnight stay Diagnoses Cellulitis of lower leg L03.119 Lower extremity edema R60.0 Peripheral neuropathy G62.9 Urinary retention R33.9 Indwelling catheter present on admission Z96.0 Bacteremia R78.81 Essential hypertension I10 Congestive heart failure I50.9
[2024-12-08 16:00] VITALS: BP 94/64; PULSE 82; RESP 15; TEMP 36.6; O2SAT 95
[2024-12-08 20:00] VITALS: BP 93/66; PULSE 91; RESP 17; TEMP 36.5; O2SAT 96
[2024-12-09] VITALS: BP 126/77; PULSE 73; RESP 16; TEMP 36.4; O2SAT 96
[2024-12-09 04:00] VITALS: BP 108/66; PULSE 72; RESP 17; TEMP 36.5; O2SAT 98
[2024-12-09 04:10] LABS: Hematocrit 37.8 % (37-53); Hemoglobin 12.70 g/dL (11.27-16.99); Mean Corpuscular HGB Conc 33.6 g/dL (30-55); Mean Corpuscular Hemoglobin 29.2 pg (27-33); Mean Corpuscular Volume 86.9 fl (82-101); Nucleated Red Blood Cells % 0 %; Platelet Count 238 10^3/cmm (157-399); Red Blood Count 4.35 10^6/uL (3.85-5.65); White Blood Count 5.65 10^3/uL (3.29-11.43)
[2024-12-09 04:39] LABS: Anion Gap 12.7 (5-19); Blood Urea Nitrogen 13 mg/dL (8-23); Calcium 8.5 mg/dL (8.5-10.5); Carbon Dioxide 29 mmol/L (22-29); Chloride 101 mmol/L (98-107); Creatinine Clr Calc Pharmacy 96.8700; Glucose 96 mg/dL (65-115); Magnesium 2.0 mg/dL (1.7-2.3); Osmolality Calculated 288 mOsm/kg (285-295); Potassium 3.7 mmol/L (3.5-5.1); Sodium 139 mmol/L (136-145)
[2024-12-09] MEDS: ATORVASTATIN 10 MG TABLET PO (06:24)
[2024-12-09] MEDS: piperacillin-tazobactam 3.375 GM in sodium chloride 0.9% (plus) 50 ML IV (06:24)
[2024-12-09 07:28] VITALS: BP 100/70; PULSE 80; RESP 16; TEMP 36.6; O2SAT 94
--- NOTE | 2024-12-09 07:59 | PC.NURSE ---
BP 100/70 HR [address] Waite advised as Lasix and Metoprolol are both due this am. She states to go ahead and give both.
[2024-12-09] MEDS: metoprolol succinate ER (24 HR) 25 mg Tablet PO (08:06)
[2024-12-09] MEDS: FUROsemide 10 mg/mL SDV 2mL 20 MG IVP (08:06)
[2024-12-09 11:16] VITALS: BP 104/71; PULSE 91; RESP 15; TEMP 36.6; O2SAT 95
--- NOTE | 2024-12-09 13:38 | P.PN_ITS ---
Subjective 2 Subjective: seen today awaiting cultures Vitals/I&O/Wt Last Vital Signs Temp 97.9 F 12/09/24 11:16 Pulse 91 12/09/24 11:16 Resp 15 12/09/24 11:16 BP 104/71 12/09/24 11:16 Pulse Ox 95 12/09/24 11:16 O2 Del Method Room Air 12/09/24 11:16 12/08/24 12/09/24 12/09/24 22:59 06:59 14:59 Intake Total 50 / 100 800 / 900 290 / 290 Output Total 2600 / 2600 Balance 50 / 100 -1800 / -1700 290 / 290 Weight last 48 hrs Weight 117.934 kg Weight 117.934 kg Physical Exam 2 Narrative: General: Alert oriented x3, HEENT: Normocephalic, atraumatic, EOMI, Cardio: Regular rate rhythm, normal S1-S2, Respiratory: Clear to auscultation bilaterally no wheezes no rhonchi GI: Abdomen soft, nontender,bowel sounds + Extremities: Left lower leg not warm, non tender, erythema has improved, wrinkling noted, Urinary Catheter Management: Coude: Cath Placed During This Visit: yes Reason for Continuing Indwelling Catheter: Other Urinary Catheter Date of Insertion: 12/02/24 Urinary Catheter Time of Insertion: 11:02 Data 12/09/24 03:47 12/09/24 03:47 Micro: Microbiology 12/07/24 13:39 Blood Culture - Preliminary Blood NEGATIVE TO DATE 12/07/24 12:11 Blood Culture - Preliminary Blood NEGATIVE TO DATE A&P Assessment and plan 1. Cellulitis of lower le. Lower extremity edema: 3. Peripheral neuropathy: 4. Urinary retention: 5. Indwelling catheter present on admission: 6. Bacteremia: 7. Essential hypertension: 8. Congestive heart failure: Plan: #Gram negative bacteremia #Diastolic HF #Nonischemic cardiomyopathy #Hypertension #Atrial fibrillation #Chronic anticoagulation #Heart failure #Urinary retention #Cellulitis - improving/resolving - Labs normal this admission - Initial Bcx from previous admission positive for gram neg rods, await final culture sensitvity - check blood cultures today - place on zosyn - check procal - Continue Torre catheter and discharged on Torre catheter. Will need to follow-up with urology as an outpatient - Continue tamsulosin - Continue on Xarelto, omeprazole, metoprolol, gabapentin - Continue Lasix 20 IV BID - Does have lower extremity edema. Venous Dopplers negative for DVT. - I will continue atorvastatin, gabapentin, potassium, Xarelto. DVT PPX : continue xarelto Full Code 12/08/2024 seen today awaiting cultures continue zosyn check crp continue lasix 20 IV bid 12/09/2024 continue lasix 20 IV BID await cultures consult ID continue IV abx today PDMP PDMP Reviewed: Not Reviewed Attestations 2 Medical Necessity Statement*: gram neg bacteremia, > 2 midnight stay Diagnoses Cellulitis of lower leg L03.119 Lower extremity edema R60.0 Peripheral neuropathy G62.9 Urinary retention R33.9 Indwelling catheter present on admission Z96.0 Bacteremia R78.81 Essential hypertension I10 Congestive heart failure I50.9
--- NOTE | 2024-12-09 14:49 | PC.NURSE ---
Discharge instructions provided to pt at this time. No questions or concerns voiced at this time. Awaiting to arrive to drive him home.
[2024-12-09 14:50] VITALS: BP 104/71; PULSE 91; RESP 15; TEMP 36.6; O2SAT 95
--- NOTE | 2024-12-09 15:58 | P.CONIM_ITS ---
Providers/Reason For Consult 2 Consulting Physician/Specialty*: Sparkle Leyva MD/Infectious Disease Reason for Consult*: Positive gram negtaive blood culture Requesting Physician: Charlene Waite MD Attending Physician: Charlene Waite MD Primary Care Provider: Taco Carpenter MD History of Present Illness History of Present Illness Helder Mccloud is a 69 year old male with a recent history of being admitted to the hospital for c/o left leg cellulitis which started suddenly with left leg swelling, warmth and tenderness. He was admitted and received treatment with cefepime and zyvox in the hospital and was discharged with oral doxycycline and Cefdinir. LE duplex was performed which ruled out DVT. Patient denies any antecedent trauma. He was called back to the hospital on 12/09 when his blood cx returned positive for tiny gram negative rods . Patient states he has felt well since discharge, His cellulitis is resolved. He has had no fever. There is no leukocytosis. Review of Systems 2 General: Reports: 10 or more systems reviewed and unremarkable except in HPI and below Const: Denies: fever(s), chills or body aches Eyes: Denies: change in vision, blurry vision or photophobia ENMT: Reports: hoarseness; Denies: throat pain, enlarged tonsils, odynophagia or nasal congestion Card: Denies: chest pain, palpitations, irregular heart rhythm, edema, swelling of feet/ankles, lightheadedness, pre-syncope, dyspnea on exertion or orthopnea Resp: Denies: dyspnea, productive cough, non-productive cough, wheezing, stridor, pain on inspiration, change in phlegm color, hemoptysis or chest congestion GI: Denies: abdominal pain, nausea, vomiting, hematemesis, coffee ground emesis, dysphagia, heartburn, diarrhea, constipation, GI cramping, change in stool character, hematochezia or melena : Denies: flank pain, dysuria, urinary frequency, urinary urgency, urinary hesitancy or hematuria Musc: Denies: neck pain, back pain, extremity pain, joint swelling, joint warmth or deformity Neuro: Denies: headache(s), numbness in extremities, weakness in extremities, sensory changes, difficulty walking, frequent falls, dizziness, vertigo, behavioral changes, Slurred speech present or seizure-like activity Psych: Denies: anxiety, depression, suicidal ideation or homicidal ideation Endo: Denies: polyuria, polydipsia, tired all the time, cold intolerance or hot flashes Jason/Lymph: Denies: easy bruising or easy bleeding Medications/Allergies Home Medications ?Medication ?Instructions ?Recorded ?Confirmed ?Last Taken ?Type gabapentin 300 mg capsule 300 mg PO TID 30 days #90 ca ps 10/14/19 12/15/24 12/07/24 Rx atorvastatin 10 mg tablet 10 mg PO QAM 02/18/2212/07/24 History omeprazole 20 mg capsule,delayed 20 mg PO QAM 07/25/22 12/15/24 12/07/24 History release tamsulosin 0.4 mg capsule 0.4 mg PO QAM 07/25/2212/1512/07/24 History imiquimod 5 % topical cream packet See Rx Instructions .Route .COMPLEX 12/02/24 12/15/24 12/07/24 History potassium chloride 10 mEq 10 meq PO DAILY 12/02/2401/2912/07/24 History tablet,extended release rivaroxaban 20 mg tablet (Xarelto) 20 mg PO QAM 12/15/24 12/07/24 History amoxicillin 875 mg-potassium 1 tab PO BID 12 days #24 tabs 12/09/24 Unknown Rx clavulanate 125 mg tablet ciprofloxacin HCl 500 mg tablet 500 mg PO Q12H 12 days #24 tabs 12/09/24 Unknown Rx (Cipro) furosemide 20 mg tablet See Rx Instructions .Route 0 12/09/24 12/15/24 12/07/24 Rx .COMPLEX #180 tabs metoprolol succinate 25 mg 25 mg PO DAILY #90 tabs 01/2912/15/24 Unknown Rx tablet,extended release 24 hr Allergies Allergy/AdvReac Type Severity Reaction Status Date / Time No Known Allergies Allergy Verified 12/15/24 13:12 PFSH Acute 2 PFSH: Medical History Tubular adenoma of colon History of colon polyps Nonischemic cardiomyopathy Anticoagulation adequate with anticoagulant therapy Xarelto Congestive heart failure Atrial fibrillation Essential hypertension Facet syndrome, lumbar Spinal stenosis, lumbar Osteoarthritis of both knees Long-term use of high-risk medication Low back pain with radiation Surgical History History of colonoscopy H/O partial thyroidectomy S/P hernia repair Hx of neck surgery S/P routine circumcision S/P tonsillectomy History of bowel resection LARGE BOWEL Family History Mother Stroke Father CAD (coronary artery disease) Myocardial infarct Denies family history of Anesthesia complication Bleeding disorder Social History Smoking and tobacco/nicotine status: former use of tobacco/nicotine Second hand smoke exposure: No Alcohol intake: never Substance/Drug Use: never Adopted: No Caregiver/support person: No Lives independently: Yes Household members: spouse Housing: House Marital status: Number of children: 0 Highest education level completed: High School Graduate service: No Current occupational status: retired Vitals/I&O/Wt Last Vital Signs Temp 97.9 F 12/09/24 14:50 Pulse 91 12/09/24 14:50 Resp 15 12/09/24 14:50 BP 104/71 12/09/24 14:50 Pulse Ox 95 12/09/24 14:50 O2 Del Method Room Air 12/09/24 11:16 12/09/24 12/09/24 12/09/24 06:59 14:59 22:59 Intake Total 800 / 900 290 / 290 Output Total 2600 / 2600 350 / 350 Balance -1800 / -1700 -60 / -60 Weight last 48 hrs Weight 117.934 kg Weight 117.934 kg Physical Exam 2 Narrative: General: No acute distress, AO x3 HEENT: PERRLA, pupils bilaterally equal and reactive, pallors not present Chest: Normal vesicular breath sounds, no added sounds, equal good air entry bilaterally CVS: S1-S2 regular, no murmurs, no tachycardia, no gallops, no rubs Abdomen: Soft, nontender, no organomegaly, bowel sounds present Neuro: No focal deficits, no facial deformity, AO x3, power 5/5 in all limbs Urinary Catheter Management: Coude: Cath Placed During This Visit: yes Reason for Continuing Indwelling Catheter: Other Urinary Catheter Date of Insertion: 12/02/24 Urinary Catheter Time of Insertion: 11:02 Data 12/09/24 03:47 12/09/24 03:47 Micro: Microbiology 12/07/24 13:39 Blood Culture - Preliminary Blood NEGATIVE TO DATE 12/07/24 12:11 Blood Culture - Preliminary Blood NEGATIVE TO DATE Other data: NAME: Helder Mccloud LOC: [facility] U #: [id number] AGE/SX: 69/M ROOM: 278 R E12/07/[address]: Charlene Waite MD : 1955 BED: 2 D IS: 12/09/24 FAX #: STATUS: DIS IN TLOC: Spec #: [id number] Jaylon: 12/07/24 Status: COMP Req #: [id number] Recd: 12/07/[address]: Charlene Waite MD Src: Blood SpDesc: Ordered: Bcult Procedure Result Verified Site Blood Culture Preliminary (changed) 12/08/24 NEGATIVE TO DATE Blood Culture Preliminary (changed) 12/07/24-1349 SPECIMEN COLLECTED NAME: Helder Mccloud Presley LOC: [facility] U #: [id number] AGE/SX: 69/M ROOM: 278 R E12/07/[address]: Charlene Waite MD : 1955 BED: 2 D IS: 12/09/24 FAX #: STATUS: DIS IN TLOC: Spec #: [id number] Jaylon: 12/07/24 Status: COMP Req #: [id number] Recd: 12/07/[address]: Charlene Waite MD Src: Blood SpDesc: Ordered: Bcult Blood Culture Preliminary (changed) 12/08/24 NEGATIVE TO DATE Blood Culture Preliminary (changed) 12/07/24-1248 SPECIMEN COLLECTED NAME: Helder Mccloud Presley LOC: [facility] U #: [id number] AGE/SX: 69/M ROOM: 277 R E12/01/[address]: Charlene Waite MD : 1955 BED: 2 D IS: 12/04/24 FAX #: STATUS: DIS IN TLOC: Spec #: [id number] Jaylon: 12/01/24 Status: COMP Req #: [id number] Recd: 12/01/[address]: Namita Lopez MD Src: Blood SpDesc: Ordered: Bcult Procedure Result Verified Site Blood Culture Final 12/08/24-3 2 OF 4 BOTTLES POSITIVE DIRECT GRAM STAIN: TINY GRAM NEGATIVE RODS SENT TO [facility] FOR ID AND SENSITIVITIES. Gram Stain Charge Charge for Gram Stain CRITICAL RESULT YES/NO: YES CRITICAL CALLED BY: SUGAR TO AND READ BACK BY: DR WETZEL DATE: 12/04/24 TIME: 1925 Blood Culture Preliminary (changed) 12/04/24 2 OF 4 BOTTLES POSITIVE DIRECT GRAM STAIN: TINY GRAM NEGATIVE RODS RESULTS TO FOLLOW Gram Stain Charge Charge for Gram Stain CRITICAL RESULT YES/NO: YES CRITICAL CALLED BY: SUGAR TO AND READ BACK BY: DR WETZEL DATE: 12/04/24 TIME: 1925 Blood Culture Preliminary (changed) 12/02/24 NEGATIVE TO DATE Blood Culture Preliminary (changed) 12/01/24 SPECIMEN COLLECTED NAME: Helder Mccloud LOC: [facility] #: [id number] AGE/SX: 69/M ROOM: [facility] R E12/01/[address]: Charlene Waite MD : 1955 BED: 2 D IS: 12/04/24 FAX #: STATUS: DIS IN TLOC: Spec #: [id number] Jaylon: 12/01/24 Status: COMP Req #: [id number] Recd: 12/01/[address]: Namita Lopez MD Src: Blood SpDesc: Ordered: Bcult Procedure Result Verified Site Blood Culture Final 12/16/24-1019 2 OF 4 BOTTLES POSITIVE DIRECT GRAM STAIN: TINY GRAM NEGATIVE RODS SENT OUT TO [facility] FOR ID AND SENSITIVITIES Gram Stain Charge Charge for Gram Stain CRITICAL RESULT YES/NO: YES CRITICAL CALLED BY: SUGAR TO AND READ BACK BY: DR. WETZEL DATE: 12/04/24 TIME: 1928 Blood Culture Preliminary (changed) 12/04/24-1928 2 OF 4 BOTTLES POSITIVE DIRECT GRAM STAIN: TINY GRAM NEGATIVE RODS RESULTS TO FOLLOW Gram Stain Charge Charge for Gram Stain CRITICAL RESULT YES/NO: YES CRITICAL CALLED BY: SUGAR TO AND READ BACK BY: DR. WETZEL DATE: 12/04/24 TIME: 1928 Blood Culture Preliminary (changed) 12/02/24-1819 NEGATIVE TO DATE Blood Culture Preliminary (changed) 12/01/24-1825 SPECIMEN COLLECTED A&P Assessment and plan 1. Cellulitis of lower le. Bacteremia: Plan: 69M with PMH of recent left leg cellulitis which resolved after a recent admission He has been called back to the hospital once his blood cx were reported positive for GNR Blood cx positive on 12/01, clear from 12/07 Discussed with micro lab, thus far the GNR has been unable to be identified. Growth noted on all plates without definitive ID. ? suspected Pasteurella spp Isolate sent to [facility] for further idenitification Since patient is otherwise clinically better, no residual signs of cellulitis, he may be discharged from an ID standpoint on oral abx abx Augmentin 875mg BID and Cipro 500mg BID for 10 days. Will f/up on pending blood cx results sent to [facility]. PDMP PDMP Reviewed: Not Reviewed Coding Level of Care Code Acute Code for Chg Fwd High MDM includes number and complexity of problems actively addressed during encounter, amount and/or complexity of data reviewed/ordered and described risk of complication, morbidity or mortality of management as documented Diagnoses Cellulitis of lower leg L03.119 Bacteremia R78.81
--- NOTE | 2024-12-10 14:15 | P.DS_ITS ---
Discharge Providers Date of Admission: 12/07/24 12:11 Date of Discharge: December 10, 2024 Attending Provider at Admission: Charlene Waite MD Attending Provider at Discharge: Charlene Waite MD Primary Care Provider: Taco Carpenter MD Diagnoses at Discharge Discharge Diagnosis 1. Cellulitis of lower le. Lower extremity edema: 3. Peripheral neuropathy: 4. Urinary retention: 5. Indwelling catheter present on admission: 6. Bacteremia: 7. Essential hypertension: 8. Congestive heart failure: Reason for Visit Reason for Visit: pos blood infection Hospital Course Hospital Course Helder Mccloud is a 69 year old male with a recent history of being admitted to the hospital for c/o left leg cellulitis which started suddenly with left leg swelling, warmth and tenderness. He was admitted and received treatment with cefepime and zyvox in the hospital and was discharged with oral doxycycline and Cefdinir. LE duplex was performed which ruled out DVT. Patient denies any antecedent trauma. He was called back to the hospital on 12/09 when his blood cx returned positive for tiny gram negative rods . Patient states he has felt well since discharge, His cellulitis is resolved. He has had no fever. There is no leukocytosis. He was readmitted due to positive blood culture that was reported after he was discharged. After readmission he was maintained on IV antibiotics and repeat blood cultures were done which were negative. ID consult was also placed. Patient's cellulitis is improving and he is responding well to medication. He was discharged home on Augmentin and ciprofloxacin for an additional 12 days to complete course. Patient to follow- up with ID outpatient. Physical Exam Narrative: General: Alert oriented x3, HEENT: Normocephalic, atraumatic, EOMI, Cardio: Regular rate rhythm, normal S1-S2, Respiratory: Clear to auscultation bilaterally no wheezes no rhonchi GI: Abdomen soft, nontender,bowel sounds + Extremities: Left lower leg not warm, non tender, erythema has improved, wrinkling noted, Urinary Catheter Management: Coude: Cath Placed During This Visit: yes Reason for Continuing Indwelling Catheter: Other Urinary Catheter Date of Insertion: 12/02/24 Urinary Catheter Time of Insertion: 11:02 Discharge Data Studies Completed and Pending Pending at discharge Category Date Time Status Blood Culture Stat Lab 12/07/24 13:39 Results Laboratory Results WBC 5.65 10^3/uL (3.29-11.43) 12/09/24 03:47 RBC 4.35 10^6/uL (3.85-5.65) 12/09/24 03:47 Hgb 12.70 g/dL (11.27-16.99) 12/09/24 03:47 Hct 37.8 % (37-53) 12/09/24 03:47 MCV 86.9 fl (82-101) 12/09/24 03:47 MCH 29.2 pg (27-33) 12/09/24 03:47 MCHC 33.6 g/dL (30-55) 12/09/24 03:47 RDW 13.2 % (12.1-15.1) 12/09/24 03:47 Plt Count 238 10^3/cmm (157-399) 12/09/24 03:47 MPV 9.5 fL (7.4-10.4) 12/09/24 03:47 Neut % (Auto) 67.2 % 12/09/24 03:47 Lymph % (Auto) 19.1 % 12/09/24 03:47 [place] % (Auto) 7.3 % 12/09/24 03:47 Eos % (Auto) 5.0 % 12/09/24 03:47 Baso % (Auto) 0.9 % 12/09/24 03:47 Neut # (Auto) 3.80 10^3/uL (1.8-7.7) 12/09/24 03:47 Lymph # (Auto) 1.1 10^3/uL (0.8-4.8) 12/09/24 03:47 [place] # (Auto) 0.4 10^3/uL (0.2-0.9) 12/09/24 03:47 Eos # (Auto) 0.3 10^3/uL (0.0-0.8) 12/09/24 03:47 Baso # (Auto) 0.1 10^3/uL (0.0-0.1) 12/09/24 03:47 Nucleated RBC % (auto) 0 % 12/09/24 03:47 Nucleated RBCs # 0.0 /100WBC 12/09/24 03:47 Sodium 139 mmol/L (136-145) 12/09/24 03:47 Potassium 3.7 mmol/L (3.5-5.1) 12/09/24 03:47 Chloride 101 mmol/L (98-107) 12/09/24 03:47 Carbon Dioxide 29 mmol/L (22-29) 12/09/24 03:47 Anion Gap 12.7 (5-19) 12/09/24 03:47 BUN 13 mg/dL (8-23) 12/09/24 03:47 Creatinine 0.9 mg/dL (0.7-1.2) 12/09/24 03:47 GFR Calculation Not Reportable 12/09/24 03:47 Glucose 96 mg/dL (65-115) 12/09/24 03:47 Calculated Osmolality 288 mOsm/kg (285-295) 12/09/24 03:47 Lactic Acid 1.1 mmol/L (0.5-2.2) 12/07/24 12:11 Calcium 8.5 mg/dL (8.5-10.5) 12/09/24 03:47 Magnesium 2.0 mg/dL (1.7-2.3) 12/09/24 03:47 Total Bilirubin 0.8 mg/dL (0.15-1.2) 12/08/24 05:05 AST 31 U/L (0-40) 12/08/24 05:05 ALT 24 U/L (0-41) 12/08/24 05:05 Alkaline Phosphatase 181 U/L (40-130) H 12/08/24 05:05 C-Reactive Protein 14.5 mg/L (0.0-4.9) H 12/08/24 05:05 Total Protein 6.7 g/dL (6.6-8.7) 12/08/24 05:05 Albumin 3.4 g/dL (3.5-5.2) L 12/08/24 05:05 Globulin 3.3 g/dL (1.3-4.6) 12/08/24 05:05 Procalcitonin 0.25 ng/mL (0-0.5) 12/07/24 12:11 Vitals Last Vital Signs Temp 97.9 F 12/09/24 14:50 Pulse 91 12/09/24 14:50 Resp 15 12/09/24 14:50 BP 104/71 12/09/24 14:50 Pulse Ox 95 12/09/24 14:50 O2 Del Method Room Air 12/09/24 11:16 Discharge Plan Discharge Patient Disposition: Home Condition: Stable Prescriptions: New amoxicillin-pot clavulanate 875-125 mg tablet 1 tab PO BID 12 Days Qty: 24 0RF ciprofloxacin HCl [Cipro] 500 mg tablet 500 mg PO Q12H 12 Days Qty: 24 0RF Continued gabapentin 300 mg capsule 300 mg PO TID 30 Days Qty: 90 3RF atorvastatin 10 mg tablet 10 mg PO QAM tamsulosin 0.4 mg capsule 0.4 mg PO QAM omeprazole 20 mg capsule,delayed release(DR/EC) 20 mg PO QAM imiquimod 5 % cream in packet See Rx Instructions .ROUTE .COMPLEX Rx Instructions: APPLY THIN LAYER WITH Q-TIP TO HEALED AREA OF BIOPSY IN FRONT OF LEFT EAR AT BEDTIME, FRIDAY-FRIDAY ( OFF WEEKENDS) FOR 6 WEEKS ONLY AND THEN STOP. WILL CAUSE SKIN IRRITAION potassium chloride 10 mEq tablet extended release 10 meq PO DAILY Xarelto 20 mg tablet 20 mg PO QAM Changed furosemide 20 mg tablet See Rx Instructions .ROUTE .COMPLEX Qty: 180 0RF Dose Instruction: TAKE 1 TABLET BY MOUTH TWICE DAILY MAY REDUCE TO 10MG IF BLOOD PRESSURE IS TOO LOW Rx Instructions: TAKE 1 TABLET BY MOUTH twice a day MAY REDUCE TO 10 mg in morning and 10 mg at night if low blood pressure Discontinued doxycycline monohydrate 100 mg Tablet 100 mg PO BID Qty: 16 0RF cefdinir 300 mg capsule 300 mg PO BID Qty: 16 0RF No Action metoprolol succinate 25 mg tablet extended release 24 hr 25 mg PO DAILY Qty: 90 3RF Discharge Order = DC NOW: Discharge Order (Routine); Ordered 12/09/24 Ordered By: Charlene Waite Referrals: Taco Carpenter MD [Primary Care Provider, Family Practice] - 12/14/24 1:30 pm Sparkle Leyva MD [Hospitalist, Hospitalist] - 01/11/25 1:30 pm Gloria Nichols FNP [Nurse Practitioner, Cardiology] - 12/15/24 12:45 pm Discharge Diet: Cardiac Discharge Activity: Resume usual activity Patient Instructions: Ciprofloxacin (By mouth), Amoxicillin (By mouth), Sepsis (DC), Opioid Safety, Patient Portal & [facility]iza Instructions Discharge Attestations Time Spent in Discharge Care*: less than 30 min Quality Metrics Clinical Quality Measures [ No reported AMI, CVA or VTE this stay] Coding Level of Care Code Acute Code for Chg Fwd Diagnoses Cellulitis of lower leg L03.119 Lower extremity edema R60.0 Peripheral neuropathy G62.9 Urinary retention R33.9 Indwelling catheter present on admission Z96.0 Bacteremia R78.81 Essential hypertension I10 Congestive heart failure I50.9
== END 2024-12-09 15:00 | disposition home or self-care (01) | DRG 603 ==
LOC: MEDSURG 12:12
PROVIDERS: Emergency Medicine; Admitting Provider Internal Medicine; PCP Family Medicine; Visit Provider Internal Medicine
DX: L03.116 Cellulitis of left lower limb (principal); R78.81 Bacteremia; I50.30 Unspecified diastolic (congestive) heart failure; I42.8 Other cardiomyopathies; B96.89 Other specified bacterial agents as the cause of diseases classified elsewhere; R33.9 Retention of urine, unspecified; G62.9 Polyneuropathy, unspecified; I11.0 Hypertensive heart disease with heart failure; I48.91 Unspecified atrial fibrillation; Z79.01 Long term (current) use of anticoagulants
CPT/HCPCS: 36415; 80048; 80053; 83605; 83735; 84145; 85025; 86140; 87040; J1938; J2543; J9999

== ENCOUNTER → 2024-12-15 12:39 | Outpatient (BNVA) | payer MEDICARE, SELFPAY | PROVIDERS: PCP Family Medicine; Visit Provider Internal Medicine | DX: Z09 Encounter for follow-up examination after completed treatment for conditions other than malignant neoplasm (principal); Z79.01 Long term (current) use of anticoagulants; I48.0 Paroxysmal atrial fibrillation; I10 Essential (primary) hypertension; I42.8 Other cardiomyopathies; R60.0 Localized edema; Z87.891 Personal history of nicotine dependence | CPT/HCPCS: 99214 ==

== ENCOUNTER 2024-12-29 09:21 | Outpatient (CLI) | payer MEDICARE, SELFPAY ==
--- NOTE | 2024-12-29 09:30 | USR_ITS ---
PROCEDURE INFORMATION: Exam: US Duplex Lower Extremity Veins, Bilateral Exam date and time: 12/29/2024 9:52 AM Age: 69 years old Clinical indication: Edema, localized; Lower extremity, bilateral; Additional info: Lower extremity edema TECHNIQUE: Imaging protocol: Real-time duplex ultrasound of the bilateral extremities with 2-D garrido scale, color Doppler flow and spectral waveform analysis including responses to compression and other maneuvers (when performed) with image documentation. Complete exam focused on the lower extremity veins. COMPARISON: CT knee LT [facility] [id number] 03/21/2022 12:24 PM FINDINGS: Right: GSV SFJ 6 mm; distal to SFJ 1.1 x 0.5 cm; prox 5 x 2 mm; mid 1.5 x 0.4 cm; dist 1.4 x 0.4 cm; SSV prox 1.2 x 0.2 cm; mid 1.1 x 0.3 cm. No thrombosis is seen. Left: GSV SFJ 8 mm; distal to SFJ 4 x 8 mm; prox 1.6 x 0.4 cm; mid 3 x 7 mm; dist 4 x 4 mm; SSV prox 1.4 x 0.4 cm; mid 1.3 x 0.3 cm. No thrombosis is seen. US/CV [place] [id number] IMPRESSION: Bilateral greater saphenous vein and small saphenous vein as described.
== END 2024-12-29 09:22 | disposition home or self-care (01) ==
LOC: RAD 09:25
PROVIDERS: PCP Family Medicine; Visit Provider Internal Medicine
DX: R60.0 Localized edema (principal)
CPT/HCPCS: 93970

== ENCOUNTER → 2025-02-07 15:15 | Outpatient (BNVA) | payer MEDICARE, SELFPAY | PROVIDERS: PCP Family Medicine; Visit Provider Nurse Practitioner Family | DX: L73.8 Other specified follicular disorders (principal); L57.8 Other skin changes due to chronic exposure to nonionizing radiation; X32.XXXA Exposure to sunlight, initial encounter; L81.4 Other melanin hyperpigmentation; L82.1 Other seborrheic keratosis; Z08 Encounter for follow-up examination after completed treatment for malignant neoplasm; Z85.828 Personal history of other malignant neoplasm of skin; Z09 Encounter for follow-up examination after completed treatment for conditions other than malignant neoplasm; Z87.2 Personal history of diseases of the skin and subcutaneous tissue; D48.5 Neoplasm of uncertain behavior of skin; L57.0 Actinic keratosis | CPT/HCPCS: 11102; 17000; 99213 ==

== ENCOUNTER → 2025-03-02 08:50 | Outpatient (BNVA) | payer MEDICARE, SELFPAY | PROVIDERS: PCP Family Medicine; Visit Provider Dermatology | DX: D18.01 Hemangioma of skin and subcutaneous tissue (principal); L82.1 Other seborrheic keratosis; Z08 Encounter for follow-up examination after completed treatment for malignant neoplasm; Z85.828 Personal history of other malignant neoplasm of skin; C44.519 Basal cell carcinoma of skin of other part of trunk; D48.5 Neoplasm of uncertain behavior of skin; L91.8 Other hypertrophic disorders of the skin; L29.89 Other pruritus; R20.8 Other disturbances of skin sensation; L53.8 Other specified erythematous conditions; L57.0 Actinic keratosis | CPT/HCPCS: 11200; 17000; 17262; 69100; 99213 ==

== ENCOUNTER → 2025-03-16 09:16 | Outpatient (BNVA) | payer MEDICARE, SELFPAY | PROVIDERS: PCP Family Medicine; Visit Provider Dermatology | DX: C44.222 Squamous cell carcinoma of skin of right ear and external auricular canal (principal) | CPT/HCPCS: 11642; 13152 ==